=== PATIENT | female | born 1960 | race Caucasian/White ===

== ENCOUNTER 2016-05-28 21:18 | Emergency (ER) | payer SELFPAY ==
[~2016-05-28] VITALS: Ht 157.5 cm; Wt 55.0 kg
[~2016-05-28 21:18] MED LIST: ATOR40TA PO; BACT2OIN TOP; CALC500T19 PO; CLIN1CAP6 PO; KEPP1000 PO; LORA-474 PO; LORTA5 PO; ONDA4 PO; PHEN100 PO; THIA100T PO; TOPI25 PO
[2016-05-28 21:32] VITALS: BP 118/78; PULSE 72; RESP 16; TEMP 98.5; O2SAT 99
[2016-05-28] MEDS ORDERED: KEPP10002 PO ×2 (21:35→22:22)
--- NOTE | 2016-05-28 21:46 | PD ---
HPI Chief Complaint: Medical Clearance Time Seen by Provider: 21:38 Travel History International Travel<30 days: No Contact w/Intl Traveler<30days: No Traveled to known affect area: No History of Present Illness HPI This is a 55-year-old female to history of alcoholism, seizure disorder, bipolar disorder who presents under a Torres act initiated by the Police Department. Apparently the patient was being evicted from a hotel but she was intoxicated and had no vertigo and so the police were called and they brought her here. The patient reports that she drank a bottle of wine. When asked if she used any drugs she says "if I used a lot of drugs did i do bad?" History is limited secondary to intoxication. She does have a tiny abrasion on her right forehead. She is unwilling or unable to answer questions regarding pain, falling, etc. PFSH Past Medical History Arthritis: Yes (lower back) Bipolar Disorder: Yes Anxiety: Yes Depression: No Cancer: No High Cholesterol: Yes Cerebrovascular Accident: No Diminished Hearing: No Endocrine: No Gastrointestinal Disorders: No Genitourinary: No Headaches: Yes Hypertension: Yes Immune Disorder: No Implanted Vascular Access Dvce: No Insomnia: Yes Neurologic: Yes Psychiatric: No Reproductive: No Respiratory: No Immunizations Current: Yes Migraines: Yes Seizures: Yes (lifelong) Tetanus Vaccination: < 5 Years Influenza Vaccination: Yes ?: Unknown Menopausal: Yes : 5 Para: 4 Miscarriage: 1 Ectopic : Yes Past Surgical History Surgical History: No Previous Surgery Abdominal Surgery: Yes (ex lap) Cardiac Surgery: No Ear Surgery: No Endocrine Surgery: No Eye Surgery: No Genitourinary Surgery: No Gynecologic Surgery: No Oral Surgery: No Thoracic Surgery: No Other Surgery: Yes (ORIF R FOREARM/ R ANKLE, ABD'L EXPLOR. 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 She has repetitive and inappropriate responses to questions. She does not respond to commands appropriately. SKIN: Warm and dry. Tiny abrasion to the right forehead. HEAD: Atraumatic. Normocephalic. EYES: Pupils equal and round. No scleral icterus. No injection or drainage. ENT: No nasal bleeding or discharge. Mucous membranes pink and moist. NECK: Trachea midline. No JVD. CARDIOVASCULAR: Regular rate and rhythm. No murmur appreciated. RESPIRATORY: No accessory muscle use. Clear to auscultation. Breath sounds equal bilaterally. GASTROINTESTINAL: Abdomen soft, non-tender, nondistended. MUSCULOSKELETAL: No obvious deformities. Full spontaneous use of the upper and lower extremities. NEUROLOGICAL: Awake and alert. No obvious cranial nerve deficits. Motor grossly within normal limits. Slurred speech consistent with alcohol intoxication. No apparent facial droop, muscle weakness. Data Data Last Documented VS Vital Signs Date Time Temp Pulse Resp B/P Pulse Ox O2 Delivery O2 Flow Rate FiO2 05/28/16 21:35 71 16 05/28/16 21:32 98.5 118/[address] Brain W/O Iv Contrast(Rout) (05/28/16 ) Levetiracetam Inj (Keppra Inj) (05/28/16 22:15) MDM Medical Decision Making Medical Screen Exam Complete: Yes Emergency Medical Condition: Yes Medical Record Reviewed: Yes Interpretation(s) CT of the brain reveals no acute abnormalities Differential Diagnosis Alcohol intoxication, polysubstance abuse, homelessness, intracranial hemorrhage Narrative Course This is a 55-year-old female who was placed on her Torres act after being evicted from a hotel and found to intoxicated to take care of herself. I am unable to obtain any useful history from the patient. She has a tiny abrasion to the right forehead. Plan is to perform CT of the brain to rule out intracranial hemorrhage. The patient will remain here until she is clinically sober and then she will be discharged. The patient's CT imaging reveals no acute abnormalities. The patient is being given a loading dose of IV Keppra as she has not been taking her Keppra, unknown duration. She is being given a 30 day supply of her Keppra prescription. Diagnosis Primary Impression: Alcohol intoxication Qualified Code: F10.120 - Alcohol intoxication, uncomplicated Additional Impression: Medication refill Additional Instructions: Follow-up with primary care physician. Med/Other Pt SpecificInfo: Prescription(s) given Scripts Levetiracetam (Keppra)1,000 Mg Tab1,000 Mg PO BID #60 TAB Ref 0 Prov:Anju Walls MD 05/28/16 Disposition: 01 DISCHARGE HOME Condition: Stable Barry Fontana May 28, 2016 21:46
--- NOTE | 2016-05-28 22:10 | RADRPT ---
EXAM DATE/TIME: 05/28/2016 21:56 [facility] COMPARISON: CT BRAIN W/O CONTRAST, January 04, 2016, 2:42. INDICATIONS : Altered mental status; ETOH. Possible fall. RADIATION DOSE: 31.34 CTDIvol (mGy) MEDICAL HISTORY : Hypertension. SURGICAL HISTORY : None. ENCOUNTER: Initial ACUITY: 1 day PAIN SCALE: 0/10 LOCATION: cranial TECHNIQUE: Multiple contiguous axial images were obtained of the head. Using automated exposure control and adj ustment of the mA and/or kV according to patient size, radiation dose was kept as low as reasonably a chievable to obtain optimal diagnostic quality images. FINDINGS: CEREBRUM: The ventricles are normal for age. No evidence of midline shift, mass lesion, hemorrhage or acute in farction. No extra-axial fluid collections are seen. POSTERIOR FOSSA: The cerebellum and brainstem are intact. The 4th ventricle is midline. The cerebellopontine angle i s unremarkable. EXTRACRANIAL: The visualized portion of the orbits is intact. SKULL: The calvaria is intact. No evidence of skull fracture. CONCLUSION: Normal examination. No significant change has occurred. Sarabjit Mcgrath MD on May 28, 2016 at 22:08 Board Certified Radiologist. This report was verified electronically.
[2016-05-28] MEDS ORDERED: levETIRAcetam INJ 500 MG in SODIUM CHLORIDE 0.9% INJ 100 ML IV ONE (22:15)
[2016-05-29] VITALS (9 sets, daily range): BP systolic 96–138; BP diastolic 52–78; PULSE 83–103; RESP 16–18; TEMP 98.4; O2SAT 95–100
[2016-05-29] MEDS ORDERED: ACETAMINOPHEN 500 MG CPLT PO ONE (07:30)
--- NOTE | 2016-05-29 07:56 | PD ---
Physical Exam Narrative Patient was brought in under Mos[place]'s act last night was seen and medically cleared at that time. However patient woke this morning complaining of a headache, feeling nauseous along with feeling some dyspnea. Patient states she' s been having some dyspnea over the past couple of days. patient reports she does smoke but denies any known history of copd or asthma. patient's she's been coughing but denies any known fevers. patient states she does not remember anything that happened last night states that after dinner started drinking fireball liquor and that she does not normally drink. denies any chest pain, abdominal pain, back pain, neck pain, numbness or tingling anywhere. GENERAL: Well-developed, well nourished, in no acute distress, and non-ill appearing. SKIN: Warm and dry. HEAD: Atraumatic. Normocephalic. EYES: Pupils equal and round. EOMI. No scleral icterus. No injection or drainage. ENT: No nasal bleeding or discharge. Mucous membranes pink and moist. NECK: Trachea midline. Supple. No nuclear rigidity. CARDIOVASCULAR: Regular rate and rhythm. No murmur appreciated. RESPIRATORY: No accessory muscle use. No respiratory distress. Wheezing noted throughout. Breath sounds equal bilaterally. GASTROINTESTINAL: Abdomen soft, non-tender, nondistended. Hepatic and splenic margins not palpable. Normal bowel sounds 4. No pulsatile mass. MUSCULOSKELETAL: No obvious deformities. No clubbing. No cyanosis. No edema. Full range of motion. NEUROLOGICAL: Awake and alert. No obvious cranial nerve deficits. Motor grossly within normal limits. Normal speech. PSYCHIATRIC: Appropriate mood and affect; insight and judgment normal. Data Data Last Documented VS Vital Signs Date Time Temp Pulse Resp B/P Pulse Ox O2 Delivery O2 Flow Rate FiO2 05/29/16 08:38 83 18 121/78 100 Room Air 05/29/16 06:[address] Brain W/O Iv Contrast(Rout) (05/28/16 ) Levetiracetam Inj (Keppra Inj) (05/28/16 22:15) Acetaminophen (Tylenol) (05/29/16 07:30) Ondansetron Odt (Zofran Odt) (05/29/16 08:00) Albuterol-Ipratropium Neb (Duoneb Neb) (05/29/16 08:00) Methylprednisolone So Succ Inj (Solumedr (05/29/16 08:00) Chest, Single Ap (05/29/16 ) Methylprednisolone So Succ Inj (Solumedr (05/29/16 08:01) Ondansetron Inj (Zofran Inj) (05/29/16 08:05) Isolation 08,20 (05/29/16 08:37) [facility] Supervised Visit with JAYCOB: No Narrative Course Patient was seen and evaluated. Upon reassessment patient reports symptoms improved status post nebulizer and steroids. Chest x-ray reveals no sign of a pneumonia. Patients symptom complex is consistent with bronchitis. The patient is non-ill appearing and is in no respiratory distress and comfortable. The patient moves air well and oxygen saturations are normal. Chest x-ray revealed no evidence of obvious consolidation of infiltrate. There is no clinical evidence to suggest pneumonia at this time. Plan of care and management were discussed with the patient who agreed with plan. The patient was instructed to follow up with their physician and instructed to return if worsens, progressively worsening shortness of breath or difficulty breathing, persistent fever, chest pains or discomfort, inability to keep medication or fluids down with or without vomiting , or as needed. Diagnosis Primary Impression: Alcohol intoxication Qualified Code: F10.120 - Alcohol intoxication, uncomplicated Additional Impressions: Medication refill Bronchitis Patient Instructions: General Instructions, Alcohol Intoxication (ED) Departure Forms: Tests/Procedures Additional Instruction: Follow-up with primary care physician. Scripts Albuterol 18 GM Inh (Ventolin Hfa 18 GM Inh)90 Mcg/Act Aer2 Puff INH Q4H PRN ( SHORTNESS OF BREATH) #1 INHALER Ref 0 Prov:Anju Walls MD 05/29/16 Levetiracetam (Keppra)1,000 Mg Tab1,000 Mg PO BID #60 TAB Ref 0 Prov:Anju Walls MD 05/28/16 Disposition: 01 DISCHARGE HOME Condition: Stable Roberto Carlos Vitale May 29, 2016 07:56
[2016-05-29] MEDS ORDERED: methylPREDNISolone SOD SUCC 125 MG/2 ML VIAL IV PUSH ONE (08:00)
[2016-05-29] MEDS ORDERED: ONDANSETRON ODT 4 MG TAB PO ONE (08:00)
[2016-05-29] MEDS ORDERED: methylPREDNISolone SOD SUCC 125 MG/2 ML VIAL ONE (08:01)
[2016-05-29] MEDS ORDERED: ONDANSETRON HCL 4 MG/2 ML VIAL ONE (08:05)
[2016-05-29] MEDS: RESP: ALBUTEROL 2.5 MG/IPRATROPIUM 0.5 MG NEB (SCH) INH (08:15)
--- NOTE | 2016-05-29 08:30 | RADRPT ---
EXAM DATE/TIME: 05/29/2016 08:09 [facility] COMPARISON: CHEST SINGLE AP, January 03, 2016, 23:48. INDICATIONS : Wheezing. MEDICAL HISTORY : Hypertension. Hypercholesterolemia. Seizures. SURGICAL HISTORY : None. ENCOUNTER: Initial ACUITY: 1 day PAIN SCORE: 0/10 LOCATION: Bilateral chest FINDINGS: There is an apparent nipple shadow in the left base. Right lung is clear. Heart and pulmonary vascu larity are normal. Portion of bony skeleton visualized is unremarkable. CONCLUSION: Nipple shadow left base. Epifanio Johansen MD FACR on May 29, 2016 at 8:21 Board Certified Radiologist. This report was verified electronically.
[2016-05-29] MEDS ORDERED: VENTAER INH (08:42)
[2016-05-29] MEDS ORDERED: LORazepam 2 MG/ML VIAL ONE (10:26)
[2016-05-29] MEDS ORDERED: SODIUM CHLOR 0.9% 1000 ML INJ 1,000 ML IV ONE ×2 (10:30→10:35)
--- NOTE | 2016-05-29 10:35 | PD ---
Physical Exam Date Seen by Provider: May 29, 2016 Narrative The patient was up for discharge. She had been here for the night "sleeping it off." The patient was found to be quite dizzy the nurse tried to discharge her. I was subsequently asked to see her. The patient was awake and alert but complaining of dizziness. The patient was reportedly here following an episode of binge drinking. I asked the nurse to give the patient a liter of fluid. The nurse was in the process of doing this when the patient had a seizure. The seizure was witnessed by myself a couple of the nurses. It was a diffuse tonic- clonic seizure. It lasted for probably 2 minutes. It was treated with Ativan, 2 mg IV. Data Data Last Documented VS Vital Signs Date Time Temp Pulse Resp B/P Pulse Ox O2 Delivery O2 Flow Rate FiO2 05/29/16 11:39 96 18 120/67 98 Nasal Cannula 2 05/29/16 06:[address] Brain W/O Iv Contrast(Rout) (05/28/16 ) Levetiracetam Inj (Keppra Inj) (05/28/16 22:15) Acetaminophen (Tylenol) (05/29/16 07:30) Ondansetron Odt (Zofran Odt) (05/29/16 08:00) Albuterol-Ipratropium Neb (Duoneb Neb) (05/29/16 08:00) Methylprednisolone So Succ Inj (Solumedr (05/29/16 08:00) Chest, Single Ap (05/29/16 ) Methylprednisolone So Succ Inj (Solumedr (05/29/16 08:01) Ondansetron Inj (Zofran Inj) (05/29/16 08:05) Isolation 08,20 (05/29/16 08:37) Sodium Chlor 0.9% 1000 Ml Inj (Ns 1000 M (05/29/16 10:30) Lorazepam Inj (Ativan Inj) (05/29/16 10:26) Complete Blood Count With Diff (05/29/16 10:35) Drug Screen, Random Urine (05/29/16 10:35) Electrocardiogram (05/29/16 ) Blood Glucose (05/29/16 10:35) Ecg Monitoring (05/29/16 10:35) Iv Access Insert/Monitor (05/29/16 10:35) Oximetry (05/29/16 10:35) Comprehensive Metabolic Panel (05/29/16 10:35) Sodium Chlor 0.9% 1000 Ml Inj (Ns 1000 M (05/29/16 10:35) Sodium Chloride 0.9% Flush (Ns Flush) (05/29/16 10:45) Thiamine Inj (Thiamine Inj) (05/29/16 10:45) Urinalysis - C+S If Indicated (05/29/16 10:35) Labs Laboratory Tests Test 05/29/16 10:58 White Blood Count 8.0 TH/MM3 Red Blood Count 4.04 MIL/MM3 Hemoglobin 12.4 GM/DL Hematocrit 37.8 % Mean Corpuscular Volume 93.6 FL Mean Corpuscular Hemoglobin 30.8 PG Mean Corpuscular Hemoglobin 32.9 % Concent Red Cell Distribution Width 13.6 % Platelet Count 236 TH/MM3 Mean Platelet Volume 6.7 FL Neutrophils (%) (Auto) 87.8 % Lymphocytes (%) (Auto) 9.6 % Monocytes (%) (Auto) 1.8 % Eosinophils (%) (Auto) 0.6 % Basophils (%) (Auto) 0.2 % Neutrophils # (Auto) 7.0 TH/MM3 Lymphocytes # (Auto) 0.8 TH/MM3 Monocytes # (Auto) 0.1 TH/MM3 Eosinophils # (Auto) 0.0 TH/MM3 Basophils # (Auto) 0.0 TH/MM3 CBC Comment DIFF FINAL Differential Comment Urine Color YELLOW Urine Turbidity CLEAR Urine pH 5.5 Urine Specific [place] 1.019 Urine Protein NEG mg/dL Urine Glucose (UA) NEG mg/dL Urine Ketones NEG mg/dL Urine Occult Blood MOD Urine Nitrite NEG Urine Bilirubin NEG Urine Urobilinogen LESS THAN 2.0 MG/DL Urine Leukocyte Esterase TRACE Urine RBC 4 /hpf Urine WBC 2 /hpf Urine Squamous Epithelial 1 /hpf Cells Urine Transitional Epithelial <1 /hpf Cells Urine Mucus FEW /lpf Microscopic Urinalysis Comment CATH-CULT NOT IND Sodium Level 145 MEQ/L Potassium Level 3.9 MEQ/L Chloride Level 114 MEQ/L Carbon Dioxide Level 22.4 MEQ/L Anion Gap 9 MEQ/L Blood Urea Nitrogen 11 MG/DL Creatinine 0.76 MG/DL Estimat Glomerular Filtration 80 ML/MIN Rate Random Glucose 137 MG/DL Calcium Level 8.0 MG/DL Total Bilirubin 0.3 MG/DL Aspartate Amino Transf 12 U/L (AST/SGOT) Alanine Aminotransferase 15 U/L (ALT/SGPT) Alkaline Phosphatase 98 U/L Total Protein 6.2 GM/DL Albumin 3.1 GM/DL Urine Opiates Screen NEG Urine Barbiturates Screen NEG Urine Amphetamines Screen NEG Urine Benzodiazepines Screen NEG Urine Cocaine Screen POS Urine Cannabinoids Screen NEG MDM Medical Record Reviewed: Yes Supervised Visit with JAYCOB: No Interpretation(s) EKG shows a lot of artifact but no acute ST segment elevation or depression. EKG is unchanged from previous. Differential Diagnosis Differential diagnosis of seizure includes but is not limited to brain trauma, brain tumor, electrolyte disturbance, alcohol withdrawal, epilepsy, idiopathic Narrative Course Patient was up for discharge but was complaining with dizziness and subsequently had a seizure. It looks like she has had a CT of her head but has not had any blood work done. She has been treated with Ativan. I will add lab work. Her CBC is normal. Chemistries are unremarkable. UA looks negative. Toxicology is positive for cocaine. This is a patient with a known seizure disorder who has been drinking and using cocaine. She had a seizure here in the emergency department. She is now sound asleep following Ativan. However, she is also now medically clear. Diagnosis Primary Impression: Alcohol intoxication Qualified Code: F10.120 - Alcohol intoxication, uncomplicated Additional Impressions: Medication refill Bronchitis Seizure disorder Patient Instructions: General Instructions, Alcohol Intoxication (ED) Departure Forms: Tests/Procedures Additional Instruction: Follow-up with primary care physician. Scripts Albuterol 18 GM Inh (Ventolin Hfa 18 GM Inh)90 Mcg/Act Aer2 Puff INH Q4H PRN ( SHORTNESS OF BREATH) #1 INHALER Ref 0 Prov:Anju Walls MD 05/29/16 Levetiracetam (Keppra)1,000 Mg Tab1,000 Mg PO BID #60 TAB Ref 0 Prov:Anju Walls MD 05/28/16 Disposition: 01 DISCHARGE HOME Condition: Stable Bianca Diez MD May 29, 2016 10:35
[2016-05-29] MEDS ORDERED: SODIUM CHLORIDE 0.9% FLUSH 5 ML FLUSH IVF PRN (10:45)
[2016-05-29] MEDS ORDERED: THIAMINE INJ 100 MG in SODIUM CHLORIDE 0.9% INJ 100 ML IV ONE (10:45)
[2016-05-29 11:17] LABS: BASOPHIL % 0.2 % (0.0-2.0); EOSINOPHIL % 0.6 % (0.0-4.0); HEMATOCRIT 37.8 % (35.0-46.0); HEMO FLAGS DIFF FINAL; LYMPH % 9.6 % (9.0-44.0); LYMPHOCYTE # 0.8 TH/MM3 (1.0-4.8); MEAN CELL VOLUME 93.6 FL (80.0-100.0); MEAN CORPUSCULAR HEMOGLOBIN 30.8 PG (27.0-34.0); MEAN CORPUSCULAR HGB CONC 32.9 % (32.0-36.0); MONO % 1.8 % (0.0-8.0); NEUT % 87.8 % (16.0-70.0); PLATELET COUNT 236 TH/MM3 (150-450); RED BLOOD COUNT 4.04 MIL/MM3 (4.00-5.30); RED CELL DISTRIBUTION WIDTH 13.6 % (11.6-17.2)
[2016-05-29 11:37] LABS: BLOOD, URINE MOD (NEG); COMMENT (UR) CATH-CULT NOT IND; CULTURE IF INDICATED CATH CULTURE NOT IND; GLUCOSE,URINE NEG (NEG); KETONE, URINE NEG (NEG); MUCUS URINE FEW /lpf (OCC); NITRITE,URINE NEG (NEG); PH, URINE 5.5 (5.0-8.5); SQUAMOUS EPITHELIAL CELL URINE 1 /hpf (0-5); TRANSITIONAL EPI CELLS, URINE <1 /hpf; URINE COLOR YELLOW (YELLW/STRAW)
[2016-05-29 11:39] LABS: ANION GAP 9 MEQ/L (5-15); AST (GOT) 12 U/L (15-37); BICARBONATE 22.4 MEQ/L (21.0-32.0); BLOOD UREA NITROGEN 11 MG/DL (7-18); CHLORIDE 114 MEQ/L (98-107); GLOMERULAR FILTRATION RATE 80 ML/MIN (>89); POTASSIUM 3.9 MEQ/L (3.5-5.1); SODIUM (NA) 145 MEQ/L (136-145)
[2016-05-29 11:42] LABS: ALKALINE PHOSPHATASE 98 U/L (45-117); ALT (GPT) 15 U/L (10-53); TOTAL BILIRUBIN ADULT 0.3 MG/DL (0.2-1.0)
[2016-05-29 11:47] LABS: AMPHETAMINE, URINE NEG (NEG); BARBITURATES, URINE NEG (NEG); COCAINE, URINE POS (NEG)
--- NOTE | 2016-05-29 17:39 | EKG ---
Date Performed: 05/29/2016 Time Performed: 10:53:28 PTAGE: 55 years EKG: Sinus rhythm NONSPECIFIC ST ABNORMALITIES ABNORMAL ECG PREVIOUS TRACING : 01/03/2016 23.38 No significant change from previous tracing noted. DOCTOR: Harmeet Mendez Interpretating Date/Time 05/29/2016 17:38:48
[2016-09-12] MEDS ORDERED: CLINPOW PO (15:58)
[2016-09-12] MEDS ORDERED: DILA100C PO (16:09)
[2016-09-12] MEDS ORDERED: KEPP10002 PO (16:09)
[2016-09-12] MEDS ORDERED: VENTAER INH (16:12)
[2016-11-10] MEDS ORDERED: HYDR50CA PO (16:00)
[2016-11-10] MEDS ORDERED: QUET-88 PO (16:00)
[2016-11-10] MEDS ORDERED: OXCA300T PO (16:00)
[2016-11-10] MEDS ORDERED: AMIT50TA3 PO (16:00)
[2016-11-10] MEDS ORDERED: GABA300C5 PO (16:37)
== END 2016-05-29 20:57 | disposition home or self-care (01) ==
LOC: NEPA 21:18
DX: F10.120 Alcohol abuse with intoxication, uncomplicated (principal); J40 Bronchitis, not specified as acute or chronic; G40.909 Epilepsy, unspecified, not intractable, without status epilepticus; R94.31 Abnormal electrocardiogram [ECG] [EKG]; I10 Essential (primary) hypertension; E78.00 Pure hypercholesterolemia, unspecified; G47.00 Insomnia, unspecified; F31.9 Bipolar disorder, unspecified; Z76.0 Encounter for issue of repeat prescription; Z72.0 Tobacco use; Z86.69 Personal history of other diseases of the nervous system and sense organs
CPT/HCPCS: 70450; 71010; 80053; 80307; 81001; 85025; 93005; 94640; 94664; 96361; 96365; 96367; 96374; 96375; 99285; J1953; J2060; J2405; J2930; J3411; J7030

== ENCOUNTER 2016-08-22 14:46 | Inpatient (IN) | payer OTHER ==
[~2016-08-22] VITALS: Ht 157.5 cm; Wt 54.2 kg
[~2016-08-22 14:46] MED LIST changes: -ATOR40TA PO; -BACT2OIN TOP; -CALC500T19 PO; -CLIN1CAP6 PO; -KEPP1000 PO; +KEPP10002 PO; -LORA-474 PO; -LORTA5 PO; -ONDA4 PO; -PHEN100 PO; -THIA100T PO; -TOPI25 PO; +VENTAER INH
[2016-08-22 15:09] VITALS: BP 161/95; PULSE 89; RESP 17; TEMP 97.8; O2SAT 98
[2016-08-22] MEDS ORDERED: SODIUM CHLOR 0.9% 1000 ML INJ 1,000 ML IV SCH (15:11)
[2016-08-22] MEDS ORDERED: SODIUM CHLORIDE 0.9% FLUSH 10 ML FLUSH IVF PRN (15:15)
[2016-08-22 15:16] VITALS: RESP 18; O2SAT 96
--- NOTE | 2016-08-22 15:27 | PD ---
HPI Chief Complaint: Altered Mental Status Time Seen by Provider: 15:22 Travel History International Travel<30 days: No Contact w/Intl Traveler<30days: No Traveled to known affect area: No History of Present Illness HPI Patient is a 56-year-old female brought in by EMS for evaluation of left lower extremity pain as well as altered mental status. Patient states she's been drinking beer today, she reports at least 5 beers this afternoon. She states that a friend of hers told her to inhale smoke from a red straw to help her pain go away, patient states her friend is a drug dealer. Patient denies any head injury or loss of consciousness, she does not know how she hurt her left leg but states she ran to the [employer] to call 911. Patient states it "hurts ". PFSH Past Medical History Arthritis: Yes (lower back) Bipolar Disorder: Yes Anxiety: Yes Depression: No Cancer: No High Cholesterol: Yes Cerebrovascular Accident: No Diminished Hearing: No Endocrine: No Gastrointestinal Disorders: No Genitourinary: No Headaches: Yes Hypertension: Yes Immune Disorder: No Implanted Vascular Access Dvce: No Insomnia: Yes Neurologic: Yes Psychiatric: No Reproductive: No Respiratory: No Immunizations Current: Yes Migraines: Yes Seizures: Yes (lifelong) ?: Not Menopausal: Yes : 5 Para: 4 Miscarriage: 1 Ectopic : Yes Past Surgical History Abdominal Surgery: Yes (ex lap) Cardiac Surgery: No Ear Surgery: No Endocrine Surgery: No Eye Surgery: No Genitourinary Surgery: No Gynecologic Surgery: No Oral Surgery: No Thoracic Surgery: No Other Surgery: Yes (ORIF R FOREARM/ R ANKLE, ABD'L EXPLOR. 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 SKIN: Focused skin assessment warm/dry. HEAD: Atraumatic. Normocephalic. EYES: Pupils equal and round. No scleral icterus. No injection or drainage. ENT: No nasal bleeding or discharge. Mucous membranes pink and moist. NECK: Trachea midline. No JVD. CARDIOVASCULAR: Regular rate and rhythm. No murmur appreciated. RESPIRATORY: No accessory muscle use. Clear to auscultation. Breath sounds equal bilaterally. GASTROINTESTINAL: Abdomen soft, non-tender, nondistended. Hepatic and splenic margins not palpable. MUSCULOSKELETAL: No obvious deformities. No clubbing. No cyanosis. Edema noted to the lateral aspect of the left ankle. Positive pedal pulses, brisk capillary refill. NEUROLOGICAL: Drowsy but arousable. No obvious cranial nerve deficits. Motor grossly within normal limits. Slow speech. PSYCHIATRIC: Appropriate mood and affect; insight and judgment impaired. Data Data Last Documented VS Vital Signs Date Time Temp Pulse Resp B/P Pulse Ox O2 Delivery O2 Flow Rate FiO2 08/22/16 16:45 97.8 87 17 129/75 97 Room Air Orders Complete Blood Count With Diff (08/22/16 15:11) Comprehensive Metabolic Panel (08/22/16 15:11) Creatine Kinase (Cpk) (08/22/16 15:11) Lactic Acid Sepsis Protocol (08/22/16 15:11) Urinalysis - C+S If Indicated (08/22/16 15:11) Blood Glucose (08/22/16 15:11) Ecg Monitoring (08/22/16 15:11) Iv Access Insert/Monitor (08/22/16 15:11) Oximetry (08/22/16 15:11) Sodium Chloride 0.9% Flush (Ns Flush) (08/22/16 15:15) Sodium Chlor 0.9% 1000 Ml Inj (Ns 1000 M (08/22/16 15:11) Drug Screen, Random Urine (08/22/16 15:11) Alcohol (Ethanol) (08/22/16 15:11) Salicylates (Aspirin) (08/22/16 15:11) Tylenol (Acetaminophen) (08/22/16 15:11) Ankle, Complete ([id number]) (08/22/16 ) Knee, Complete (4vws) (08/22/16 ) CKMB (08/22/16 15:25) CKMB% (08/22/16 15:25) Splint Or Brace Apply/Monitor (08/22/16 17:06) Urine Culture (08/22/16 16:40) Nitrofurantoin Monohyd Macrocr (Macrobid (08/22/16 17:45) Crutches (08/22/16 17:53) Labs Laboratory Tests Test 08/22/16 08/22/16 08/22/16 15:25 16:00 16:40 White Blood Count 7.1 TH/MM3 Red Blood Count 4.36 MIL/MM3 Hemoglobin 13.0 GM/DL Hematocrit 39.6 % Mean Corpuscular Volume 90.9 FL Mean Corpuscular Hemoglobin 29.9 PG Mean Corpuscular Hemoglobin 32.9 % Concent Red Cell Distribution Width 13.2 % Platelet Count 252 TH/MM3 Mean Platelet Volume 6.7 FL Neutrophils (%) (Auto) 52.2 % Lymphocytes (%) (Auto) 40.3 % Monocytes (%) (Auto) 4.8 % Eosinophils (%) (Auto) 2.1 % Basophils (%) (Auto) 0.6 % Neutrophils # (Auto) 3.7 TH/MM3 Lymphocytes # (Auto) 2.9 TH/MM3 Monocytes # (Auto) 0.3 TH/MM3 Eosinophils # (Auto) 0.2 TH/MM3 Basophils # (Auto) 0.0 TH/MM3 CBC Comment DIFF FINAL Differential Comment Sodium Level 143 MEQ/L Potassium Level 3.8 MEQ/L Chloride Level 108 MEQ/L Carbon Dioxide Level 23.0 MEQ/L Anion Gap 12 MEQ/L Blood Urea Nitrogen 10 MG/DL Creatinine 0.67 MG/DL Estimat Glomerular Filtration 92 ML/MIN Rate Random Glucose 83 MG/DL Calcium Level 8.5 MG/DL Total Bilirubin 0.4 MG/DL Aspartate Amino Transf 36 U/L (AST/SGOT) Alanine Aminotransferase 30 U/L (ALT/SGPT) Alkaline Phosphatase 121 U/L Total Creatine Kinase 453 U/L Creatine Kinase MB 3.8 NG/ML Creatine Kinase MB % 0.8 % Total Protein 7.7 GM/DL Albumin 4.0 GM/DL Salicylates Level 2.5 MG/DL Acetaminophen Level LESS THAN 2.0 MCG/ML Ethyl Alcohol Level 238 MG/DL Lactic Acid Level 1.3 mmol/L Urine Color LIGHT-YELLOW Urine Turbidity HAZY Urine pH 5.0 Urine Specific [place] 1.006 Urine Protein NEG mg/dL Urine Glucose (UA) NEG mg/dL Urine Ketones NEG mg/dL Urine Occult Blood MOD Urine Nitrite POS Urine Bilirubin NEG Urine Urobilinogen LESS THAN 2.0 MG/DL Urine Leukocyte Esterase LARGE Urine RBC 4 /hpf Urine WBC 5 /hpf Urine Squamous Epithelial 3 /hpf Cells Urine Bacteria MANY /hpf Microscopic Urinalysis Comment CATH-CULTURE IND Urine Opiates Screen NEG Urine Barbiturates Screen NEG Urine Amphetamines Screen NEG Urine Benzodiazepines Screen NEG Urine Cocaine Screen POS Urine Cannabinoids Screen NEG MDM Medical Decision Making Medical Screen Exam Complete: Yes Emergency Medical Condition: Yes Interpretation(s) Vital Signs Date Time Temp Pulse Resp B/P Pulse Ox O2 Delivery O2 Flow Rate FiO2 08/22/16 15:16 18 96 Room Air 08/22/16 15:09 97.8 89 17 161/95 98 Differential Diagnosis Fracture versus sprain versus strain versus dislocation versus intoxication versus substance abuse versus other Narrative Course Patient is a 56-year-old female brought in by EMS for evaluation of left leg pain. Patient could not recall how she was injured, she appears intoxicated on arrival. Patient is drowsy but arousable. Imaging, labs ordered and pending. X-ray of the left ankle and knee was negative for acute fracture. Patient placed in ankle stirrup for support, there is edema noted to the lateral aspect , patient likely sprained her ankle. She was also given crutches for support. CBC is unremarkable Chemistry shows no acute issues. Lactic acid is 1.3 Urinalysis is nitrite positive for urinary tract infection with moderate occult blood, large leukocyte esterase, 4 red blood cells, and many bacteria. Patient was given nitrofurantoin times one dose as well as 1 L IV fluids. Patient's blood alcohol level was 238 Acetaminophen is less than 2.0 Salicylate level 2.5 Urine drug screen is ordered and pending. Patient will be discharged when she is able to ambulate safely. She is encouraged to avoid illicit drug use, limit amount of alcohol that she is on a daily basis. She is encouraged follow-up with her primary doctor return to emergency department for any new or worsening symptoms. Patient additionally should follow up with a orthopedic surgeon for further evaluation management of her ankle pain if needed. Patient will be kept in the emergency department until she is able to demonstrate safe ambulation. However patient is medically cleared this time. Diagnosis Primary Impression: Urinary tract infection Qualified Code: N39.0 - Urinary tract infection with hematuria, site unspecified Additional Impressions: Alcohol intoxication Qualified Code: F10.120 - Alcohol intoxication, uncomplicated Ankle sprain Qualified Code: S93.402A - Sprain of left ankle, unspecified ligament, initial encounter Referrals: Primary Care Physician [facility] Patient Instructions: Abuse of Alcohol (ED), Ankle Sprain (ED), General Instructions, Urinary Tract Infection in Women (ED) Additional Instructions: Rest, ice, elevate extremity Complete full course of antibiotics as prescribed Follow-up with her primary doctor Avoid excessive alcohol intake Avoid illicit drug use Return to emergency department for any new or worsening symptoms Med/Other Pt SpecificInfo: Prescription(s) given Scripts Nitrofurantoin Monohydrate Macrocrystals 100 Mg [id number] Mg PO BID 7 Days Ref 0 Prov:Radha Moreland 08/22/16 Disposition: 01 DISCHARGE HOME Condition: Stable Radha Moreland Aug 22, 2016 15:27
--- NOTE | 2016-08-22 16:02 | RADRPT ---
EXAM DATE/TIME: 08/22/2016 15:27 [facility] COMPARISON: No previous studies available for comparison. INDICATIONS : Left knee pain after fall. MEDICAL HISTORY : None. SURGICAL HISTORY : None. ENCOUNTER: Initial ACUITY: 1 day PAIN SCORE: 10/10 LOCATION: Left knee. FINDINGS: Four view examination of the left knee demonstrates no evidence of fracture or dislocation. Bony min eralization is normal. The articular surfaces are intact. The suprapatellar soft tissues have a nor mal configuration. CONCLUSION: Unremarkable examination of the left knee. Thor Ferrer MD on August 22, 2016 at 15:58 Board Certified Radiologist. This report was verified electronically.
--- NOTE | 2016-08-22 16:03 | RADRPT ---
EXAM DATE/TIME: 08/22/2016 15:32 [facility] COMPARISON: No previous studies available for comparison. INDICATIONS : Left ankle pain after fall. MEDICAL HISTORY : None. SURGICAL HISTORY : None. ENCOUNTER: Initial ACUITY: 1 day PAIN SCORE: 10/10 LOCATION: Left ankle. FINDINGS: Three view exam was performed of the left ankle. The bony structures are in normal alignment. No ev idence of fracture, dislocation, or soft tissue swelling. The ankle mortise is intact. No radiopaqu e foreign bodies are seen. Bony mineralization is normal. CONCLUSION: Unremarkable examination of the left ankle. Thor Ferrer MD on August 22, 2016 at 16:00 Board Certified Radiologist. This report was verified electronically.
[2016-08-22 16:06] LABS: AUTOMATED NEUTROPHIL # 3.7 TH/MM3 (1.8-7.7); BASOPHIL % 0.6 % (0.0-2.0); EOSINOPHIL # 0.2 TH/MM3 (0-0.4); EOSINOPHIL % 2.1 % (0.0-4.0); HEMATOCRIT 39.6 % (35.0-46.0); HEMO FLAGS DIFF FINAL; LYMPH % 40.3 % (9.0-44.0); LYMPHOCYTE # 2.9 TH/MM3 (1.0-4.8); MEAN CELL VOLUME 90.9 FL (80.0-100.0); MEAN CORPUSCULAR HEMOGLOBIN 29.9 PG (27.0-34.0); MEAN CORPUSCULAR HGB CONC 32.9 % (32.0-36.0); MONO % 4.8 % (0.0-8.0); NEUT % 52.2 % (16.0-70.0); PLATELET COUNT 252 TH/MM3 (150-450); RED BLOOD COUNT 4.36 MIL/MM3 (4.00-5.30); RED CELL DISTRIBUTION WIDTH 13.2 % (11.6-17.2); WHITE BLOOD COUNT 7.1 TH/MM3 (4.0-11.0)
[2016-08-22 16:34] LABS: ANION GAP 12 MEQ/L (5-15)
[2016-08-22 16:38] LABS: ACETAMINOPHEN LESS THAN 2.0 MCG/ML (10.0-30.0); ALKALINE PHOSPHATASE 121 U/L (45-117); ALT (GPT) 30 U/L (10-53); AST (GOT) 36 U/L (15-37); BLOOD UREA NITROGEN 10 MG/DL (7-18); CHLORIDE 108 MEQ/L (98-107); CREATINE KINASE 453 U/L (26-192); GLOMERULAR FILTRATION RATE 92 ML/MIN (>89); POTASSIUM 3.8 MEQ/L (3.5-5.1); SODIUM (NA) 143 MEQ/L (136-145); TOTAL BILIRUBIN ADULT 0.4 MG/DL (0.2-1.0)
[2016-08-22 16:45] VITALS: BP 129/75; PULSE 87; RESP 17; TEMP 97.8; O2SAT 97
[2016-08-22 16:58] LABS: CKMB 3.8 NG/ML (0.5-3.6)
[2016-08-22 17:19] LABS: BACTERIA, URINE MANY /hpf; BLOOD, URINE MOD (NEG); GLUCOSE,URINE NEG (NEG); KETONE, URINE NEG (NEG); SQUAMOUS EPITHELIAL CELL URINE 3 /hpf (0-5); URINE COLOR LIGHT-YELLOW (YELLW/STRAW)
[2016-08-22 17:20] LABS: COMMENT (UR) CATH-CULTURE IND; CULTURE IF INDICATED CATH CULTURE IND; NITRITE,URINE POS (NEG)
[2016-08-22 17:39] LABS: AMPHETAMINE, URINE NEG (NEG); BARBITURATES, URINE NEG (NEG); COCAINE, URINE POS (NEG)
[2016-08-22] MEDS ORDERED: NITR100C4 PO (17:43)
[2016-08-22] MEDS ORDERED: NITROFURANTOIN MONOHYD MACROCR 100 MG CAP PO ONE (17:45)
[2016-08-23] VITALS (12 sets, daily range): BP systolic 113–182; BP diastolic 73–96; PULSE 74–97; RESP 16–22; TEMP 95.8–98.1; O2SAT 94–98
[2016-08-23] MEDS: LORazepam 2 MG/ML VIAL IV PUSH PRN ×2 (03:30→16:52)
--- NOTE | 2016-08-23 03:50 | PD ---
Physical Exam Narrative General: The patient is a well-developed well-nourished female, actively seizing on my arrival at her side. Head and Neck exam: Head is normocephalic atraumatic. Eyes: Pupils are equal round and reactive to light. Nose: Midline septum with pink mucous membranes Mouth: Dentition unremarkable. Moist mucus membranes Neck:No nuchal rigidity. Cardiovascular: Sinus tachycardia in the 1 teens without murmurs, gallops, or rubs. Lungs: Clear to auscultation bilaterally. No wheezes, rhonchi, or rales. Abdomen: Soft, without tenderness to palpation in all 4 quadrants of the abdomen. No guarding, rebound, or rigidity. Normal bowel sounds are audible. Extremities: No clubbing, cyanosis, or edema. 2+ pulses in all 4 extremities. The patient has a Velcro ankle splint in place on the left leg. Neurologic Exam: The patient is noted to have a generalized tonic-clonic seizure with postictal state after administration of Ativan. Skin Exam: No rash noted. Intact skin that is warm and dry. Data Data Last Documented VS Vital Signs Date Time Temp Pulse Resp B/P Pulse Ox O2 Delivery O2 Flow Rate FiO2 08/23/16 04:00 80 16 156/82 96 Nasal Cannula 2 08/22/16 16:45 97.8 Orders Complete Blood Count With Diff (08/22/16 15:11) Comprehensive Metabolic Panel (08/22/16 15:11) Creatine Kinase (Cpk) (08/22/16 15:11) Lactic Acid Sepsis Protocol (08/22/16 15:11) Urinalysis - C+S If Indicated (08/22/16 15:11) Blood Glucose (08/22/16 15:11) Ecg Monitoring (08/22/16 15:11) Iv Access Insert/Monitor (08/22/16 15:11) Oximetry (08/22/16 15:11) Sodium Chloride 0.9% Flush (Ns Flush) (08/22/16 15:15) Sodium Chlor 0.9% 1000 Ml Inj (Ns 1000 M (08/22/16 15:11) Drug Screen, Random Urine (08/22/16 15:11) Alcohol (Ethanol) (08/22/16 15:11) Salicylates (Aspirin) (08/22/16 15:11) Tylenol (Acetaminophen) (08/22/16 15:11) Ankle, Complete ([id number]) (08/22/16 ) Knee, Complete (4vws) (08/22/16 ) CKMB (08/22/16 15:25) CKMB% (08/22/16 15:25) Splint Or Brace Apply/Monitor (08/22/16 17:06) Urine Culture (08/22/16 16:40) Nitrofurantoin Monohyd Macrocr (Macrobid (08/22/16 17:45) Crutches (08/22/16 17:53) Brace Ankle Stirrup (08/22/16 ) Sodium Chlor 0.9% 1000 Ml Inj (Ns 1000 M (08/23/16 04:30) Lorazepam Inj (Ativan Inj) (08/23/16 04:30) Levetiracetam 1000 Mg Inj (Keppra 1000 M (08/23/16 04:30) Admit Order (Ed Use Only) (08/23/16 04:22) Place In Observation (08/23/16 ) Vital Signs (Adult) Q4H (08/23/16 04:22) Activity Oob With Assistance (08/23/16 04:22) Heavy Equipment Operator/Paver / Telemetry .CONTINUOUS (08/23/16 04:22) Diet Heart Healthy (08/23/16 Breakfast) Sodium Chloride 0.9% Flush (Ns Flush) (08/23/16 04:30) Sodium Chloride 0.9% Flush (Ns Flush) (08/23/16 09:00) Pt Request For Service (08/23/16 04:22) Case Management Consult (08/23/16 04:22) Naloxone Inj (Narcan Inj) (08/23/16 04:30) Bedside Glucose SUNNY.AC&HS (08/23/16 04:23) Intake + Output SUNNY.QSHIFT (08/23/16 04:23) Alcohol Withdrawal Asmt-Ciwa Q4HX18 (08/23/16 04:23) ^ Seizure Precautions (08/23/16 04:23) Sodium Chloride 0.9% Flush (Ns Flush) (08/23/16 04:30) Sodium Chloride 0.9% Flush (Ns Flush) (08/23/16 09:00) Consult Cm-Etoh Abuse Dc Plan (08/23/16 ) Flumazenil Inj (Romazicon Inj) (08/23/16 04:30) Lorazepam (Ativan) (08/23/16 04:30) Lorazepam Inj (Ativan Inj) (08/23/16 04:30) Lorazepam (Ativan) (08/23/16 04:30) Lorazepam Inj (Ativan Inj) (08/23/16 04:30) Lorazepam Inj (Ativan Inj) (08/23/16 04:30) Lorazepam Inj (Ativan Inj) (08/23/16 04:30) Labs Laboratory Tests Test 08/22/16 08/22/16 08/22/16 15:25 16:00 16:40 Sodium Level 143 MEQ/L Potassium Level 3.8 MEQ/L Chloride Level 108 MEQ/L Carbon Dioxide Level 23.0 MEQ/L Anion Gap 12 MEQ/L Blood Urea Nitrogen 10 MG/DL Creatinine 0.67 MG/DL Estimat Glomerular Filtration 92 ML/MIN Rate Random Glucose 83 MG/DL Calcium Level 8.5 MG/DL Total Bilirubin 0.4 MG/DL Aspartate Amino Transf 36 U/L (AST/SGOT) Alanine Aminotransferase 30 U/L (ALT/SGPT) Alkaline Phosphatase 121 U/L Total Creatine Kinase 453 U/L Creatine Kinase MB 3.8 NG/ML Creatine Kinase MB % 0.8 % Total Protein 7.7 GM/DL Albumin 4.0 GM/DL Salicylates Level 2.5 MG/DL Acetaminophen Level LESS THAN 2.0 MCG/ML Ethyl Alcohol Level 238 MG/DL White Blood Count 7.1 TH/MM3 Red Blood Count 4.36 MIL/MM3 Hemoglobin 13.0 GM/DL Hematocrit 39.6 % Mean Corpuscular Volume 90.9 FL Mean Corpuscular Hemoglobin 29.9 PG Mean Corpuscular Hemoglobin 32.9 % Concent Red Cell Distribution Width 13.2 % Platelet Count 252 TH/MM3 Mean Platelet Volume 6.7 FL Neutrophils (%) (Auto) 52.2 % Lymphocytes (%) (Auto) 40.3 % Monocytes (%) (Auto) 4.8 % Eosinophils (%) (Auto) 2.1 % Basophils (%) (Auto) 0.6 % Neutrophils # (Auto) 3.7 TH/MM3 Lymphocytes # (Auto) 2.9 TH/MM3 Monocytes # (Auto) 0.3 TH/MM3 Eosinophils # (Auto) 0.2 TH/MM3 Basophils # (Auto) 0.0 TH/MM3 CBC Comment DIFF FINAL Differential Comment Lactic Acid Level 1.3 mmol/L Urine Opiates Screen NEG Urine Barbiturates Screen NEG Urine Amphetamines Screen NEG Urine Benzodiazepines Screen NEG Urine Cocaine Screen POS Urine Cannabinoids Screen NEG Urine Color LIGHT-YELLOW Urine Turbidity HAZY Urine pH 5.0 Urine Specific [place] 1.006 Urine Protein NEG mg/dL Urine Glucose (UA) NEG mg/dL Urine Ketones NEG mg/dL Urine Occult Blood MOD Urine Nitrite POS Urine Bilirubin NEG Urine Urobilinogen LESS THAN 2.0 MG/DL Urine Leukocyte Esterase LARGE Urine RBC 4 /hpf Urine WBC 5 /hpf Urine Squamous Epithelial 3 /hpf Cells Urine Bacteria MANY /hpf Microscopic Urinalysis Comment CATH-CULTURE IND MDM Medical Record Reviewed: Yes Supervised Visit with JAYCOB: No Differential Diagnosis Alcohol-related withdrawal seizure, versus seizure activity related to medication noncompliance and a history of epilepsy, versus cocaine induced seizure activity Narrative Course During the course of the patients emergency department visit, the patients history and examination were reviewed after I was called into the room to assess the patient when she experienced generalized tonic-clonic seizure activity. The patient had been in the emergency department between 10 and 12 hours for observation due to acute alcohol intoxication. The patient also had a urine drug screen that was positive for cocaine. According to the record, the patient additionally has a past medical history significant for seizure disorder on Keppra. The patient was provided normal saline 1 L IV fluid bolus, Ativan 2 mg IV push. The patient will be admitted to the hospital for evaluation and treatment, history of altered mentation thought to be related to polysubstance abuse, now with seizure activity noted. The patient was admitted to the hospital in guarded condition and [facility]. Physician Communication Physician Communication The patient's case was discussed with Dr. Saenz who did agree to admit the patient for further evaluation and treatment at this time. Diagnosis Primary Impression: Urinary tract infection Qualified Code: N39.0 - Urinary tract infection with hematuria, site unspecified Additional Impressions: Alcohol intoxication Qualified Code: F10.120 - Alcohol intoxication, uncomplicated Ankle sprain Qualified Code: S93.402A - Sprain of left ankle, unspecified ligament, initial encounter Altered mental state Qualified Code: R41.0 - Disorientation Generalized tonic-clonic seizure Admitting Information Admitting Physician Requests: Observation Referrals: Primary Care Physician [facility] Patient Instructions: General Instructions, Ankle Sprain (ED), Urinary Tract Infection in Women (ED), Abuse of Alcohol (ED) Departure Forms: Tests/Procedures Additional Instruction: Rest, ice, elevate extremity Complete full course of antibiotics as prescribed Follow-up with her primary doctor Avoid excessive alcohol intake Avoid illicit drug use Return to emergency department for any new or worsening symptoms Scripts Nitrofurantoin Monohydrate Macrocrystals 100 Mg [id number] Mg PO BID 7 Days Ref 0 Prov:Radha Moreland 08/22/16 Disposition: 01 DISCHARGE HOME Condition: Stable Angelique Brock MD Aug 23, 2016 03:50
[2016-08-23] MEDS ORDERED: SODIUM CHLORIDE 0.9% FLUSH 10 ML FLUSH IV FLUSH PRN ×2 (04:30)
[2016-08-23] MEDS ORDERED: LORazepam 1 MG TAB PO PRN (04:30)
[2016-08-23] MEDS ORDERED: LORazepam 2 MG TAB PO PRN (04:30)
[2016-08-23] MEDS ORDERED: FLUMAZENIL 0.5 MG/5 ML VIAL IV PUSH PRN (04:30)
[2016-08-23] MEDS ORDERED: levETIRAcetam 1000 MG INJ 100 ML IV ONE (04:30)
[2016-08-23] MEDS ORDERED: LORazepam 2 MG/ML VIAL IV PUSH ONE (04:30)
[2016-08-23] MEDS ORDERED: NALOXONE HCL 0.4 MG/ML AMP IV PRN (04:30)
[2016-08-23] MEDS ORDERED: LORazepam 2 MG/ML VIAL IV PUSH PRN ×3 (04:30→17:00)
[2016-08-23] MEDS ORDERED: SODIUM CHLOR 0.9% 1000 ML INJ 1,000 ML IV ONE (04:30)
[2016-08-23] MEDS: CIPROFLOXACIN 400 MG PREMIX 200 ML IV SCH ×2 (05:21→17:55)
[2016-08-23] MEDS: SODIUM CHLORIDE 0.9% FLUSH 10 ML FLUSH IV FLUSH SCH ×2 (09:00→20:23)
[2016-08-23] MEDS ORDERED: SODIUM CHLORIDE 0.9% FLUSH 10 ML FLUSH IV FLUSH SCH (09:00)
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
[2016-08-23] MEDS: levETIRAcetam 500 MG TAB PO SCH ×2 (12:41→20:34)
[2016-08-23] MEDS: KETOROLAC TROMETHAMINE 30 MG/ML (IVP) VIAL IV PUSH PRN (13:14)
[2016-08-23] MEDS ORDERED: levETIRAcetam 500 MG TAB PO SCH (17:00)
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
[2016-08-23] MEDS: CLINDAMYCIN 150 MG CAP PO SCH ×2 (17:55→23:06)
[2016-08-23] MEDS ORDERED: FOSPHENYTOIN INJ 1,000 MGPE in SODIUM CHLORIDE 0.9% INJ 50 ML IV ONE (18:15)
--- NOTE | 2016-08-23 19:38 | RADRPT ---
EXAM DATE/TIME: 08/23/2016 18:33 [facility] COMPARISON: No previous studies available for comparison. INDICATIONS : Abscess. MEDICAL HISTORY : Hypercholesterolemia. Hypertension. Arthritis. Seizures. Basal ganglia. Migraines. Asthma. Ectopic pr egnancy. PTSD. Bipolar disorder. Anxiety. ETOH and substance abuse. Insomnia. MRSA. SURGICAL HISTORY : Exploratory laprascopy. Right hand/forearm ORIF. Right ankle ORIF. Jaw repair. Blood transfusions. ENCOUNTER: Initial ACUITY: 2 days PAIN SCORE: 10/10 LOCATION: Left hand. AREA EVALUATED: Left dorsal hand FINDINGS: There is prominent thickening of the soft tissues with some heterogeneous echotexture characteristic of edematous tissue. No drainable fluid collections seen. On color Doppler, there is diffuse increa sed flow. CONCLUSION: Thickened dorsal soft tissues and diffuse increased flow with color Doppler. No drainable fluid michelle ections. Jasen Crockett MD on August 23, 2016 at 19:35 Board Certified Radiologist. This report was verified electronically.
[2016-08-23] MEDS: MULTIVITAMIN INJ 10 ML, FOLIC ACID INJ 1 MG in SODIUM CHLORID 0.9% 500 ML INJ 500 ML IV SCH (20:33)
[2016-08-23] MEDS: THIAMINE INJ 100 MG in SODIUM CHLORIDE 0.9% INJ 100 ML IV SCH (20:33)
--- NOTE | 2016-08-23 23:04 | RADRPT ---
EXAM DATE/TIME: 08/23/2016 22:15 [facility] COMPARISON: MRI BRAIN W/O CONTRAST, August 30, 2015, 13:47. INDICATIONS : Seizures. MEDICAL HISTORY : Seizures. SURGICAL HISTORY : Jaw surgery. Right arm surgery. Left ankle screw. ENCOUNTER: Subsequent ACUITY: 1 day PAIN SCORE: 0/10 LOCATION: cranial TECHNIQUE: Multiplanar, multisequence MRI of the brain was performed without contrast. FINDINGS: Motion degraded exam. CEREBRUM: A small chronic lacunar infarction is seen involving the right head of caudate. The ventricles are no rmal for age. No evidence of midline shift, mass lesion, hemorrhage or acute infarction. No extraax ial fluid collections are seen. The pituitary gland and suprasellar cistern are normal in configurat ion. WHITE MATTER: No significant signal abnormalities are seen in the white matter. POSTERIOR FOSSA: The cerebellum and brainstem are intact. The 4th ventricle is midline. The cerebellopontine angle is unremarkable. The cerebellar tonsils are normal in position. DIFFUSION IMAGING: No focal areas of restricted diffusion are seen. No evidence of acute infarction. EXTRACRANIAL: The visualized portions of the orbits are unremarkable. Chronic mucosal thickening involving the left maxillary sinus. CONCLUSION: 1. Motion degraded exam. 2. No acute intracranial abnormality. 3. Chronic left maxillary sinus disease. Jasen Stanley Jr., MD on August 23, 2016 at 23:00 Board Certified Radiologist. This report was verified electronically.
--- NOTE | 2016-08-23 23:06 | RADRPT ---
EXAM DATE/TIME: 08/23/2016 16:16 [facility] COMPARISON: No previous studies available for comparison. INDICATIONS : Abscess. Third distal interphalangeal joint wound. MEDICAL HISTORY : Seizures. SURGICAL HISTORY : Jaw surgery. Right arm surgery. Left ankle screw. ENCOUNTER: Subsequent ACUITY: 3 day PAIN SCORE: 8/10 LOCATION: Left hand. TECHNIQUE: Multiplanar, multisequence MRI examination was performed without contrast. FINDINGS: The examination is incomplete; patient experienced a seizure during the scan and 4 pulse sequences we re acquired. No contrast was administered. There is prominent soft tissue thickening and edema about the dorsum of the hand extending from the p roximal carpal row into the base of the 4th and 5th digits. No signal abnormality seen in the marrow of the metacarpal or proximal phalanges. The edematous soft tissues does surround the dorsal tendon s. No drainable fluid collections seen. Special attention is directed to the 3rd digit interphalang eal joint. No focal fluid collections seen about the joint. CONCLUSION: Prominent dorsal soft tissue swelling about the hand extending into the proximal 3rd and 4th digits. No focal signal abnormalities within the marrow of the osseous structures. Jasen Crockett MD on August 23, 2016 at 23:01 Board Certified Radiologist. This report was verified electronically.
[2016-08-24] VITALS (9 sets, daily range): BP systolic 113–132; BP diastolic 63–86; PULSE 73–96; RESP 13–31; TEMP 97.6–98.6; O2SAT 95–100
[2016-08-24] MEDS: CIPROFLOXACIN 400 MG PREMIX 200 ML IV SCH ×2 (04:10→19:02)
[2016-08-24 04:56] LABS: AUTOMATED NEUTROPHIL # 4.5 TH/MM3 (1.8-7.7); BASOPHIL % 0.7 % (0.0-2.0); EOSINOPHIL # 0.2 TH/MM3 (0-0.4); EOSINOPHIL % 2.7 % (0.0-4.0); HEMATOCRIT 36.5 % (35.0-46.0); HEMO FLAGS DIFF FINAL; LYMPH % 25.3 % (9.0-44.0); LYMPHOCYTE # 1.8 TH/MM3 (1.0-4.8); MEAN CELL VOLUME 91.1 FL (80.0-100.0); MEAN CORPUSCULAR HEMOGLOBIN 29.7 PG (27.0-34.0); MEAN CORPUSCULAR HGB CONC 32.6 % (32.0-36.0); MONO % 7.8 % (0.0-8.0); NEUT % 63.5 % (16.0-70.0); PLATELET COUNT 200 TH/MM3 (150-450); RED CELL DISTRIBUTION WIDTH 13.2 % (11.6-17.2); WHITE BLOOD COUNT 7.1 TH/MM3 (4.0-11.0)
[2016-08-24 05:28] LABS: ALT (GPT) 22 U/L (10-53); ANION GAP 9 MEQ/L (5-15); AST (GOT) 20 U/L (15-37); BICARBONATE 24.6 MEQ/L (21.0-32.0); BLOOD UREA NITROGEN 14 MG/DL (7-18); CHLORIDE 107 MEQ/L (98-107); GLOMERULAR FILTRATION RATE 115 ML/MIN (>89); POTASSIUM 3.7 MEQ/L (3.5-5.1); SODIUM (NA) 141 MEQ/L (136-145)
[2016-08-24 05:36] LABS: ALKALINE PHOSPHATASE 99 U/L (45-117); CREATINE KINASE 128 U/L (26-192); TOTAL BILIRUBIN ADULT 0.4 MG/DL (0.2-1.0)
[2016-08-24] MEDS: CLINDAMYCIN 150 MG CAP PO SCH ×4 (06:15→23:13)
[2016-08-24] MEDS ORDERED: LORazepam 2 MG/ML VIAL IM ONE ×2 (09:15→09:45)
[2016-08-24] MEDS: levETIRAcetam 1000 MG INJ 100 ML IV SCH ×2 (10:34→19:42)
[2016-08-24] MEDS: SODIUM CHLORIDE 0.9% FLUSH 10 ML FLUSH IV FLUSH SCH ×2 (10:35→20:37)
[2016-08-24] MEDS: PHENYTOIN SODIUM 100 MG CAP PO SCH ×3 (10:42→20:37)
[2016-08-24] MEDS ORDERED: CHLORHEXIDINE GLUCONATE 2 % 1 PACK (2 CLOTHS)(extra cloths) TOPICAL PRN (10:45)
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
[2016-08-24] MEDS: KETOROLAC TROMETHAMINE 30 MG/ML (IVP) VIAL IV PUSH PRN ×2 (14:51→20:39)
--- NOTE | 2016-08-24 16:06 | HHI.PR ---
Subjective Remarks Follow-up for seizure activity, alcohol and other substance abuse. This morning around 8:00, patient experienced an episode of seizure activity. We evaluated patient at bedside and managed acutely. Patient was subsequently transferred to ICU. Objective Vitals Vital Signs Date Time Temp Pulse Resp B/P Pulse Ox O2 Delivery O2 Flow Rate FiO2 08/24/16 08:40 96 13 113/78 96 08/24/16 07:53 98.1 83 14 128/86 96 08/24/16 04:29 98.6 73 18 113/63 96 08/23/16 23:29 98.1 88 18 119/73 94 08/23/16 19:40 97.5 83 18 113/73 96 08/23/16 16:48 97.8 90 22 162/80 98 Result Diagram: 08/24/16 0325 08/24/16 0325 Imaging Last Impressions Upper Extremity Ultrasound 08/23/16 0000 Signed Impressions: Service Date/Time: Tuesday, August 23, 2016 18:33 - CONCLUSION: Thickened dorsal soft tissues and diffuse increased flow with color Doppler. No drainable fluid collections. Jasen Crockett MD Head CT 08/23/16 0000 Signed Impressions: Service Date/Time: Tuesday, August 23, 2016 17:14 - CONCLUSION: 1. No evidence of acute intracranial pathology. No masses are identified. Gregory Chilel MD Hand MRI 08/23/16 0000 Signed Impressions: Service Date/Time: Tuesday, August 23, 2016 16:16 - CONCLUSION: Prominent dorsal soft tissue swelling about the hand extending into the proximal 3rd and 4th digits. No focal signal abnormalities within the marrow of the osseous structures. Jasen Crockett MD Brain MRI 08/23/16 0000 Signed Impressions: Service Date/Time: Tuesday, August 23, 2016 22:15 - CONCLUSION: 1. Motion degraded exam. 2. No acute intracranial abnormality. 3. Chronic left maxillary sinus disease. Jasen Stanley Jr., MD Knee X-Ray 08/22/16 0000 Signed Impressions: Service Date/Time: Monday, August 22, 2016 15:27 - CONCLUSION: Unremarkable examination of the left knee. Thor Ferrer MD Ankle X-Ray 08/22/16 0000 Signed Impressions: Service Date/Time: Monday, August 22, 2016 15:32 - CONCLUSION: Unremarkable examination of the left ankle. Thor Ferrer MD Objective Remarks GENERAL: At the time of seizure activity, patient had whole body jerking movements. No verbal communications. Settled down after IM ativan. SKIN: Warm and dry. HEAD: Normocephalic. EYES: No scleral icterus. No injection or drainage. NECK: Supple, trachea midline. No JVD or lymphadenopathy. CARDIOVASCULAR: Regular rate and rhythm without murmurs, gallops, or rubs. RESPIRATORY: Breath sounds equal bilaterally. No accessory muscle use. GASTROINTESTINAL: Abdomen soft, non-tender, nondistended. MUSCULOSKELETAL: No cyanosis, or edema. BACK: Nontender without obvious deformity. No CVA tenderness. Procedures None. A/P Problem List: (1) Recurrent seizures ICD Code: G40.909 Status: Acute (2) Urinary tract infection ICD Code: N39.0 Status: Acute (3) Alcohol intoxication ICD Code: F10.129 Status: Acute Assessment and Plan Ms. Sun is a 56-year-old female with history of seizures, headaches, anxiety /depression, arthritis, presented to the ER with left ankle pain and had a witnessed generalized tonic clonic seizure while in the ER. 08/24/2016 Around 8AM, patient had another episode of seizure, we went to evaluate patient right away. On arrival, we noticed patient was experiencing whole body jerking movements. Nursing staff stayed with patient to make sure patient remains safe. She did not have any IV access. We administered 2 mg of Lorazepam IM and soon after that patient's seizure activity stopped. Yesterday, patient was started on Keppra as well as given one dose of fosphenytoin. Patient was also started on Dilantin. After patient was stabilized, we transferred patient to ICU. Neurology consult was already placed. We also ordered Dilantin level. Total critical care time spent over 35 minutes on 08/24/2016. Generalized Tonic-Clonic Seizure: witnessed by ER staff. With hx of seizures on Keppra as outpatient, questionable compliance. However likely related to recent drug use, alcohol intoxication, vs infection with UTI. UDS positive for cocaine , Etoh level 238. S/p IV Keppra bolus in the ER. Restart patient's Keppra 1000mg po bid. Outpatient f/up with patient's neurologist. - On 08/23/2016, patient had a seizure activity while she was in radiology. Received 2mg of Ativan X 1. Neurology was consulted. Brain MRI, EEG, IV Cerebyx , Dilantin started - Neurology evaluated patient today and recommended to continue Keppra 1g BID , Dilantin 100mg TID. - Follow up Dilantin and Keppra levels. Urinary tract infection with E. Coli. - Cx positive for [place]-sensitive E. Coli. Continue IV Cipro. Left Dorsal Hand Cellulitis: MRI shows soft tissue swelling. Continue Clinda 300mg q6h. Left Ankle Sprain: xray negative for fracture. Continue SHAYNE wrap. Crutches if needed. PT eval. Cocaine Use: counseled on cessation, although patient denies cocaine use. Alcohol Use: counseled on cessation. Thiamine/MV/folate. CIWA protocol. Full code. SCDs. Problem Qualifiers (1) Urinary tract infection: Qualified Code: N39.0 - Urinary tract infection with hematuria, site unspecified (2) Alcohol intoxication: Qualified Code: F10.120 - Alcohol intoxication, uncomplicated Fabienne Tanner DO Aug 24, 2016 4:05 pm
--- NOTE | 2016-08-24 16:14 | MG ---
cc: VINI MACKAY M.D. Lab No: Date: 08/24/2016 Age: Sex: F Race: Cc: DATE OF 1960 56 years old. ELECTROENCEPHALOGRAM NUMBER [id number] REFERRING PHYSICIAN ANGEL Patel ROOM 511 With photic stimulation. Awake, drowsy, asleep study. EEG in 2016 was normal. MRI no acute findings. A 56-year-old woman with left lower extremity pain and change in mental status. Inhaled unknown substance from a straw from a drug dealer apparently. Ethanol level was 238. Positive UDS for cocaine. History of possible seizures, head trauma, dizziness, substance abuse, previous suicide attempt. MEDICATIONS On: 1. Keppra. 2. Dilantin. 3. Cleocin. 4. Cipro. DESCRIPTION OF RECORD Seems to be some faster frequency waves consistent with what looks like beta waves. EKG looks sinus. A lot of muscle movement artifact documented and seen. Photic stimulation minimal driving response but more artifactual. No epileptic activity. IMPRESSION Questionably abnormal EEG. There is some beta wave activity at times, may be medicine effect but there is no evidence of any epileptiform features. Clinical correlation MD ROSAURA Stein/CARLITOS /2:18 PM /3:54 PM
--- NOTE | 2016-08-24 17:55 | RADRPT ---
EXAM DATE/TIME: 08/24/2016 11:33 [facility] COMPARISON: CT BRAIN W/O CONTRAST, August 23, 2016, 17:14. INDICATIONS : Seizure, postictal left side weakness. RADIATION DOSE: 56.35 CTDIvol (mGy) MEDICAL HISTORY : Cardiovascular disease. Hypertension. SURGICAL HISTORY : None. ENCOUNTER: Initial ACUITY: 1 day PAIN SCALE: 0/10 LOCATION: cranial TECHNIQUE: Multiple contiguous axial images were obtained of the head. Using automated exposure control and adj ustment of the mA and/or kV according to patient size, radiation dose was kept as low as reasonably a chievable to obtain optimal diagnostic quality images. FINDINGS: CEREBRUM: The ventricles are normal for age. No evidence of midline shift, mass lesion, hemorrhage or acute in farction. No extra-axial fluid collections are seen. POSTERIOR FOSSA: The cerebellum and brainstem are intact. The 4th ventricle is midline. The cerebellopontine angle i s unremarkable. EXTRACRANIAL: The visualized portion of the orbits is intact. SKULL: The calvaria is intact. No evidence of skull fracture. Mucoperiosteal thickening is present in the left maxillary sinus. CONCLUSION: Negative for acute process. Epifanio Johansen MD FACR on August 24, 2016 at 17:53 Board Certified Radiologist. This report was verified electronically.
[2016-08-24] MEDS: MULTIVITAMIN INJ 10 ML, FOLIC ACID INJ 1 MG in SODIUM CHLORID 0.9% 500 ML INJ 500 ML IV SCH (20:37)
[2016-08-24] MEDS: THIAMINE INJ 100 MG in SODIUM CHLORIDE 0.9% INJ 100 ML IV SCH (20:37)
[2016-08-25] VITALS (11 sets, daily range): BP systolic 100–142; BP diastolic 62–81; PULSE 69–103; RESP 16–24; TEMP 97.7–98.6; O2SAT 93–99
[2016-08-25] MEDS: KETOROLAC TROMETHAMINE 30 MG/ML (IVP) VIAL IV PUSH PRN (01:46)
[2016-08-25] MEDS: CHLORHEXIDINE GLUCONATE 2 % 1 PACK (2 CLOTHS)(taper/protocol) TOPICAL SCH (04:00)
[2016-08-25] MEDS: CLINDAMYCIN 150 MG CAP PO SCH ×3 (06:22→17:23)
[2016-08-25] MEDS: PHENYTOIN SODIUM 100 MG CAP PO SCH ×2 (06:22→13:31)
[2016-08-25] MEDS: CIPROFLOXACIN 400 MG PREMIX 200 ML IV SCH ×2 (06:23→17:23)
--- NOTE | 2016-08-25 08:34 | HHI.PR ---
Subjective Remarks Follow-up for seizure activity, alcohol and other substance abuse. Ms. Sun was very agitated this morning. She had two episodes of seizure activities last night. After talking to patient, she calms down and gets into bed. Objective Vitals Vital Signs Date Time Temp Pulse Resp B/P Pulse Ox O2 Delivery O2 Flow Rate FiO2 08/25/16 06:00 76 08/25/16 04:03 98.1 87 21 138/80 94 08/25/16 04:00 87 08/25/16 02:00 81 08/25/16 00:00 98.0 77 18 116/70 96 08/25/16 00:00 77 08/24/16 22:00 96 08/24/16 20:00 98.3 88 17 132/84 100 08/24/16 20:00 88 08/24/16 18:00 93 08/24/16 16:00 96 08/24/16 16:00 97.6 96 31 98 08/24/16 15:51 18 08/24/16 14:00 79 08/24/16 14:00 97.9 79 16 131/83 95 08/24/16 12:00 81 08/24/16 08:40 96 13 113/78 96 I/O 08/24/16 08/24/16 08/24/16 08/25/16 08/25/16 08/25/16 07:00 15:00 23:00 07:00 15:00 23:00 Intake Total 669 ml 593 ml 740 ml Output Total 500 ml 825 ml Balance 669 ml 93 ml -85 ml Intake Oral 480 ml 240 ml IV Total 189 ml 593 ml 500 ml Output Urine Total 500 ml 825 ml # Voids 3 2 # Bowel Movements 1 Result Diagram: 08/24/16 0325 08/24/16 0325 Imaging Last Impressions Head CT 08/24/16 0000 Signed Impressions: Service Date/Time: Wednesday, August 24, 2016 11:33 - CONCLUSION: Negative for acute process. Epifanio Johansen MD FACR Upper Extremity Ultrasound 08/23/16 0000 Signed Impressions: Service Date/Time: Tuesday, August 23, 2016 18:33 - CONCLUSION: Thickened dorsal soft tissues and diffuse increased flow with color Doppler. No drainable fluid collections. Jasen Crockett MD Hand MRI 08/23/16 Signed Impressions: Service Date/Time: Tuesday, August 23, 2016 16:16 - CONCLUSION: Prominent dorsal soft tissue swelling about the hand extending into the proximal 3rd and 4th digits. No focal signal abnormalities within the marrow of the osseous structures. Jasen Crockett MD Brain MRI 08/23/16 Signed Impressions: Service Date/Time: Tuesday, August 23, 2016 22:15 - CONCLUSION: 1. Motion degraded exam. 2. No acute intracranial abnormality. 3. Chronic left maxillary sinus disease. Jasen Stanley Jr., MD Knee X-Ray 08/22/16 Signed Impressions: Service Date/Time: Monday, August 22, 2016 15:27 - CONCLUSION: Unremarkable examination of the left knee. Thor Ferrer MD Ankle X-Ray 08/22/16 Signed Impressions: Service Date/Time: Monday, August 22, 2016 15:32 - CONCLUSION: Unremarkable examination of the left ankle. Thor Ferrer MD Objective Remarks GENERAL: At the time of seizure activity, patient had whole body jerking movements. No verbal communications. Settled down after IM ativan. SKIN: Warm and dry. HEAD: Normocephalic. EYES: No scleral icterus. No injection or drainage. NECK: Supple, trachea midline. No JVD or lymphadenopathy. CARDIOVASCULAR: Regular rate and rhythm without murmurs, gallops, or rubs. RESPIRATORY: Breath sounds equal bilaterally. No accessory muscle use. GASTROINTESTINAL: Abdomen soft, non-tender, nondistended. MUSCULOSKELETAL: No cyanosis, or edema. BACK: Nontender without obvious deformity. No CVA tenderness. Procedures None. A/P Problem List: (1) Recurrent seizures ICD Code: G40.909 Status: Acute (2) Urinary tract infection ICD Code: N39.0 Status: Acute (3) Alcohol intoxication ICD Code: F10.129 Status: Acute Assessment and Plan Ms. Sun is a 56-year-old female with history of seizures, headaches, anxiety /depression, arthritis, presented to the ER with left ankle pain and had a witnessed generalized tonic clonic seizure while in the ER. Generalized Tonic-Clonic Seizure: witnessed by ER staff. With hx of seizures on Keppra as outpatient, questionable compliance. However likely related to recent drug use, alcohol intoxication, vs infection with UTI. UDS positive for cocaine , Etoh level 238. S/p IV Keppra bolus in the ER. Restart patient's Keppra 1000mg po bid. - On 08/23/2016, patient had a seizure activity while she was in radiology. Received 2mg of Ativan X 1. Neurology was consulted. Brain MRI, EEG, IV Cerebyx , Dilantin started - Neurology evaluated patient today and recommended to continue Keppra 1g BID , Dilantin 100mg TID. - Dilantin level 13.4 and 13.0. Alcohol Use Alcohol withdrawal - Will start patient on Librium 50mg TID. Haldol 5mg IM PRN for acute agitation. Discussed with RN regarding using Ativan for agitation/withdrawal first before haldol. - counseled on cessation. Thiamine/MV/folate. CIWA protocol. Urinary tract infection with E. Coli. - Cx positive for richmond-sensitive E. Coli. Continue IV Cipro. Left Dorsal Hand Cellulitis: MRI shows soft tissue swelling. Continue Clinda 300mg q6h. Left Ankle Sprain: xray negative for fracture. Continue SHAYNE wrap. Crutches if needed. PT eval. Cocaine Use: counseled on cessation, although patient denies cocaine use. Full code. SCDs. Problem Qualifiers (1) Urinary tract infection: Qualified Code: N39.0 - Urinary tract infection with hematuria, site unspecified (2) Alcohol intoxication: Qualified Code: F10.120 - Alcohol intoxication, uncomplicated Fabienne Tanner DO Aug 25, 2016 8:34 am
[2016-08-25] MEDS: levETIRAcetam 1000 MG INJ 100 ML IV SCH ×2 (08:42→22:26)
[2016-08-25] MEDS: LORazepam 2 MG/ML VIAL IV PUSH PRN ×4 (08:43→21:12)
[2016-08-25] MEDS: HALOPERIDOL LACTATE 5 MG/ML AMP IM PRN ×2 (08:43→14:09)
[2016-08-25] MEDS: SODIUM CHLORIDE 0.9% FLUSH 10 ML FLUSH IV FLUSH SCH ×2 (09:00→21:11)
[2016-08-25] MEDS: chlordiazePOXIDE 25 MG CAP PO PRN ×2 (10:03→17:23)
[2016-08-25] MEDS ORDERED: REMOVE OLD PATCH T-DERMAL SCH ×2 (13:00→21:00)
[2016-08-25] MEDS: NICOTINE 14 MG/24 HR PATCH T-DERMAL SCH (13:43)
--- NOTE | 2016-08-25 21:32 | HHI.PR ---
Review/Management Diagnosis - Breakthrough seizures Likely etiology alcohol-related, questionable compliance. - Alcohol intoxication. - Illicit drug abuse/ UDS positive for Cocaine. - UTI. Plan 1. Neuro checks q. one hourly. 2. Keppra 1 gram twice daily. 3. Dilantin 100 mg three times daily. 4. Seizure precautions. 5. Fall precautions. 6. CIWA protocol. 7. DVT prophylaxis with SCDs. Diagnosis/Plan: Subjective Subjective Comments Patient was witnessed with a seizure activity overnight Charge nurse witnessed an 'episode' this morning, and states that it was not a true seizure, patient was agitated EEG with no evidence of an electrographic seizure MRI brain was reported with no acute intracranial abnormality Dilantin & Keppra levels are therapeutic Active Medications Current Medications Medications (Trade) Dose Ordered Sig/Jesus Route Start Time Stop Time Status Last Admin (NS Flush) 2 ml UNSCH PRN IV FLUSH 08/23/16 04:30 (NS Flush) 2 ml BID IV FLUSH 08/23/16 09:00 08/25/16 21:11 (Narcan Inj) 0.4 mg UNSCH PRN IV 08/23/16 04:30 (Romazicon Inj) 0.2 mg Q1M PRN IV PUSH 08/23/16 04:30 (Ativan) 1 mg Q4H PRN PO 08/23/16 04:30 (Ativan Inj) 1 mg Q4H PRN IV PUSH 08/23/16 04:30 08/23/16 20:34 (Ativan) 2 mg Q2H PRN PO 08/23/16 04:30 (Ativan Inj) 2 mg Q2H PRN IV PUSH 08/23/16 04:30 08/25/16 21:12 (Ativan Inj) 2 mg Q1H PRN IV PUSH 08/23/16 04:30 Lorazepam 2 mg 2 mg Q15M PRN IV PUSH 08/23/16 04:30 08/25/16 13:31 (Cipro 400 Mg Premix) 200 ml @ 200 mls/hr Q12H IV 08/23/16 05:00 08/25/16 17:23 (Keppra) 1,000 mg Q12HR PO 08/23/16 12:00 Hold 08/23/16 20:34 (Toradol Inj) 15 mg Q6H PRN IV PUSH 08/23/16 12:45 08/28/16 12:44 08/25/16 01:46 (Cleocin) 300 mg Q6HR PO 08/23/16 18:00 08/25/16 17:23 Lorazepam 2 mg 2 mg Q15M PRN IV PUSH 08/23/16 17:00 08/24/16 19:42 Multivitamins 10 ml/Folic Acid 1 mg/Sodium Chloride 510.2 ml @ 125 mls/hr Q24H IV 08/23/16 20:00 08/28/16 19:59 08/24/16 20:37 (Thiamine Inj/NS Inj) 101 ml @ 100 mls/hr Q24H IV 08/23/16 20:00 08/26/16 19:59 08/24/16 20:37 (Vitamin B1) 100 mg DAILY PO 08/27/16 09:00 Phenytoin 100 mg 100 mg Q8HR PO 08/24/16 08:00 08/25/16 13:31 (Keppra 1000 Mg Inj) 100 ml @ 400 mls/hr Q12HR IV 08/24/16 09:00 08/25/16 08:42 Miscellaneous Information Patient in critical care unit? Ass... [id number] .[id number] 08/24/16 10:45 (Chlorhexidine 2% Cloth) 3 pack DAILY@04 TOPICAL 08/25/16 04:00 08/29/16 04:01 08/25/16 04:00 (Chlorhexidine 2% Cloth) 3 pack UNSCH PRN TOPICAL 08/24/16 10:45 08/29/16 10:35 (Haldol Inj) 5 mg Q6H PRN IM 08/25/16 08:00 08/25/16 14:09 (Librium) 50 mg Q6H PRN PO 08/25/16 08:00 08/25/16 17:23 (Habitrol 14 Mg Patch.24 Hr) 1 patch DAILY T-DERMAL 08/25/16 14:00 08/25/16 13:43 Miscellaneous Information 1 HS T-DERMAL 08/25/16 21:00 Allergies Allergies Coded Allergies Iodine (Verified Adverse Reaction, Severe, Anaphylaxis, 08/22/16) Penicillin (Verified Adverse Reaction, Severe, Anaphylaxis, 08/22/16) *MDRO Multi-Drug Resistant Organism (Verified Adverse Reaction, Unknown, ) Review of Systems All other ROS: ROS reviewed as documented in chart Exam I&O / VS 08/24/16 08/24/16 08/25/16 15:00 23:00 07:00 Intake Total 669 ml 593 ml 740 ml Output Total 500 ml 825 ml Balance 669 ml 93 ml -85 ml Intake Oral 480 ml 240 ml IV Total 189 ml 593 ml 500 ml Output Urine Total 500 ml 825 ml # Voids 2 Vital Signs Date Time Temp Pulse Resp B/P Pulse Ox O2 Delivery O2 Flow Rate FiO2 08/25/16 18:00 74 08/25/16 16:00 98.1 71 16 115/76 98 08/25/16 16:00 71 08/25/16 12:00 78 08/25/16 12:00 98.6 78 16 100/62 94 08/25/16 08:00 83 08/25/16 08:00 97.7 103 24 142/81 93 08/25/16 06:00 76 08/25/16 04:03 98.1 87 21 138/80 94 08/25/16 04:00 87 08/25/16 02:00 81 08/25/16 00:00 98.0 77 18 116/70 96 08/25/16 00:00 77 08/24/16 22:00 96 Exam Comments GENERAL: The patient is awake, eating dinner during the clinical encounter, occasionally sleepy HEENT: Atraumatic, normocephalic. Intact hearing. Intact vision. NECK: Supple. No signs of meningeal irritation. CARDIOVASCULAR: Regular rate and rhythm. RESPIRATORY: Clear to auscultation. No wheezes. MUSCULOSKELETAL: No obvious deformity. No edema. Moves extremities more on the right side than the left side. NEUROLOGICAL: Awake, alert, oriented to person, place and time, Pupils are equal , reacting to light. No gaze paresis. No signs of meningeal irritation. Reflexes 1+ bilateral symmetrical. Plantars are bilateral downgoing. Moves all extremities equally, intact sensation throughout, normal cerebellar functions PSYCHOLOGICAL: Calm, no agitations, no signs of visual delusions. Objective Radiology Results Last [address] 08/24/16 0000 Signed Impressions: Service Date/Time: Wednesday, August 24, 2016 11:33 - CONCLUSION: Negative for acute process. Epifanio Johansen MD FACR Upper Extremity Ultrasound 08/23/16 0000 Signed Impressions: Service Date/Time: Tuesday, August 23, 2016 18:33 - CONCLUSION: Thickened dorsal soft tissues and diffuse increased flow with color Doppler. No drainable fluid collections. Jasen Crockett MD Head CT 08/23/16 0000 Signed Impressions: Service Date/Time: Tuesday, August 23, 2016 17:14 - CONCLUSION: 1. No evidence of acute intracranial pathology. No masses are identified. Gregory Chilel MD Hand MRI 08/23/16 0000 Signed Impressions: Service Date/Time: Tuesday, August 23, 2016 16:16 - CONCLUSION: Prominent dorsal soft tissue swelling about the hand extending into the proximal 3rd and 4th digits. No focal signal abnormalities within the marrow of the osseous structures. Jasen Crockett MD Brain MRI 08/23/16 0000 Signed Impressions: Service Date/Time: Tuesday, August 23, 2016 22:15 - CONCLUSION: 1. Motion degraded exam. 2. No acute intracranial abnormality. 3. Chronic left maxillary sinus disease. Jasen Stanley Jr., MD Micro and Labs Date/Time Procedure Status Source Growth 08/22/16 16:40 Urine Culture - Final Complete Urine Catheterized Urine Escherichia Coli Sue Carson MD Aug 25, 2016 21:32
[2016-08-25] MEDS: THIAMINE INJ 100 MG in SODIUM CHLORIDE 0.9% INJ 100 ML IV SCH (22:22)
[2016-08-25] MEDS: MULTIVITAMIN INJ 10 ML, FOLIC ACID INJ 1 MG in SODIUM CHLORID 0.9% 500 ML INJ 500 ML IV SCH (22:42)
[2016-08-26] VITALS: BP 101/69; PULSE 69; RESP 19; TEMP 98.2; O2SAT 95
[2016-08-26] MEDS: CLINDAMYCIN 150 MG CAP PO SCH ×3 (00:19→12:57)
[2016-08-26] MEDS: PHENYTOIN SODIUM 100 MG CAP PO SCH ×3 (00:19→12:56)
[2016-08-26] MEDS: chlordiazePOXIDE 25 MG CAP PO PRN ×2 (00:20→08:00)
[2016-08-26 02:00] VITALS: PULSE 65
[2016-08-26 04:00] VITALS: BP 101/56; PULSE 67; RESP 16; TEMP 98.1; O2SAT 100
[2016-08-26] MEDS: CHLORHEXIDINE GLUCONATE 2 % 1 PACK (2 CLOTHS)(taper/protocol) TOPICAL SCH (04:00)
[2016-08-26] MEDS: CIPROFLOXACIN 400 MG PREMIX 200 ML IV SCH (05:20)
[2016-08-26 06:00] VITALS: PULSE 78
[2016-08-26] MEDS: HALOPERIDOL LACTATE 5 MG/ML AMP IM PRN (06:00)
[2016-08-26] MEDS: LORazepam 2 MG/ML VIAL IV PUSH PRN (06:01)
[2016-08-26] MEDS: NICOTINE 14 MG/24 HR PATCH T-DERMAL SCH (08:00)
[2016-08-26] MEDS: levETIRAcetam 1000 MG INJ 100 ML IV SCH (08:01)
[2016-08-26] MEDS: SODIUM CHLORIDE 0.9% FLUSH 10 ML FLUSH IV FLUSH SCH (09:00)
[2016-08-26] MEDS ORDERED: FOLI1TAB4 PO (10:56)
[2016-08-26] MEDS ORDERED: DILA100C PO (10:56)
[2016-08-26] MEDS ORDERED: KEPP10002 PO (10:56)
[2016-08-26] MEDS ORDERED: CLIN150 PO (10:56)
[2016-08-26] MEDS ORDERED: CHLO25CA2 PO (10:56)
[2016-08-26] MEDS ORDERED: VITA100T2 PO (10:56)
--- NOTE | 2016-08-26 10:59 | HHI.DS ---
Discharge Summary Admission Date Aug 23, 2016 at 5:49 pm Discharge Date: Aug 26, 2016 Admitting Diagnosis AMS, Seizure activity, Polysubstance abuse (1) Recurrent seizures ICD Code: G40.909 Diagnosis: Principal (2) Urinary tract infection ICD Code: N39.0 (3) Alcohol intoxication ICD Code: F10.129 Diagnosis: Principal Procedures None. Brief History - From Admission 56-year-old female with history of seizures, headaches, anxiety/depression, arthritis, presented to the ER with left ankle pain and had a witnessed generalized tonic clonic seizure while in the ER. The patient reports she came to the hospital because her left ankle was hurting, she was unable to ambulate, therefore she called 911. While in the ER, left ankle xray was negative for fracture, she was diagnosed with left ankle sprain, SHAYNE wrap provided, and the patient was being discharged. While in the ER, staff witnessed generalized tonic clonic seizure, s/p IV Ativan 2mg. She denies illicit drug use although UDS positive for cocaine, etoh level 238. The patient reports compliance with her Keppra 1000mg bid. She follows up with a neurologist in [place]. Denies recent fevers/chills. Denies any abdominal pain/nausea/vomiting/diarrhea/ constipation. Urinalysis positive for UTI. The patient does report some dysuria. Currently the patient is very drowsy seen in CDU. She also complains of left dorsal hand swelling s/p IV infiltration. She is requesting pain medications for the left hand pain. She has no other medical complaints at this time. CBC/BMP: 08/24/16 0325 08/24/16 0325 Significant Findings Laboratory Tests Test 08/24/16 03:25 Random Glucose 107 MG/DL (74-106) Albumin 3.0 GM/DL (3.4-5.0) Imaging Last Impressions Head CT 08/24/16 0000 Signed Impressions: Service Date/Time: Wednesday, August 24, 2016 11:33 - CONCLUSION: Negative for acute process. Epifanio Johansen MD FACR Upper Extremity Ultrasound 4/4/17 0000 Signed Impressions: Service Date/Time: Tuesday, August 23, 2016 18:33 - CONCLUSION: Thickened dorsal soft tissues and diffuse increased flow with color Doppler. No drainable fluid collections. Jasen Crockett MD Hand MRI 08/23/16 Signed Impressions: Service Date/Time: Tuesday, August 23, 2016 16:16 - CONCLUSION: Prominent dorsal soft tissue swelling about the hand extending into the proximal 3rd and 4th digits. No focal signal abnormalities within the marrow of the osseous structures. Jasen Crockett MD Brain MRI 08/23/16 Signed Impressions: Service Date/Time: Tuesday, August 23, 2016 22:15 - CONCLUSION: 1. Motion degraded exam. 2. No acute intracranial abnormality. 3. Chronic left maxillary sinus disease. Jasen Stanley Jr., MD Knee X-Ray 08/22/16 Signed Impressions: Service Date/Time: Monday, August 22, 2016 15:27 - CONCLUSION: Unremarkable examination of the left knee. Thor Ferrer MD Ankle X-Ray 08/22/16 Signed Impressions: Service Date/Time: Monday, August 22, 2016 15:32 - CONCLUSION: Unremarkable examination of the left ankle. Thor Ferrer MD PE at Discharge GENERAL: At the time of seizure activity, patient had whole body jerking movements. No verbal communications. Settled down after IM ativan. SKIN: Warm and dry. HEAD: Normocephalic. EYES: No scleral icterus. No injection or drainage. NECK: Supple, trachea midline. No JVD or lymphadenopathy. CARDIOVASCULAR: Regular rate and rhythm without murmurs, gallops, or rubs. RESPIRATORY: Breath sounds equal bilaterally. No accessory muscle use. GASTROINTESTINAL: Abdomen soft, non-tender, nondistended. MUSCULOSKELETAL: No cyanosis, or edema. BACK: Nontender without obvious deformity. No CVA tenderness. Pt update on day of discharge Patient is doing well. No further seizure activity. Tolerating diet well. No acute concerns. Will be discharged home today. Discussed with Dr. Carson ( Neurology) who agreed with our discharge plan. Dr. Carson recommended outpatient follow up with patient's own neurologist. A one week check of Dilantin would be helpful. Patient was strongly advised not to drink alcohol or use illicit drugs. Hospital Course Ms. Sun is a 56-year-old female with history of seizures, headaches, anxiety /depression, arthritis, presented to the ER with left ankle pain and had a witnessed generalized tonic clonic seizure while in the ER. UDS positive for cocaine, Etoh level 238. Patient received Keppra IV in the ED. In the subsequent days, patient had witnessed seizure activity in the hospital. She was transferred to ICU for closer observation. In the ICU, patient was started on Librium and we continued Keppra and Dilantin which was started by neurologist. On 08/26/2016, patient was doing well. Discussed with Neurology who agreed with our plan to discharge patient. Patient was strongly advised against using alcohol and other illicit substances including Cocaine. Patient verbalized understanding. During this admission, patient also mentioned a left hand dorsal cellulitis present at the time of admission. We provided Clindamycin for this cellulitis. Patient was discharged home on 08/26/2016. Patient will follow up with her neurologist with regards to her seizure activities and medications. Pt Condition on Discharge: Good Discharge Disposition: Discharge Home Discharge Time: > 30 minutes Discharge Instructions DIET: Follow Instructions for: Heart Healthy Diet Activities you can perform: Regular-No Restrictions Follow up Referrals: Neurology - 1 Week PCP Follow-up - 1 Week New Orders: DILANTIN (FREE) - 1 Week New Medications: Folic Acid (Folate) 1 Mg Tab 1 MG PO DAILY Nutritional Supplement #30 Ref 0 TAB Chlordiazepoxide (Chlordiazepoxide) 25 Mg Cap 25 MG PO Q6H PRN WITHDRAWAL #28 CAP Clindamycin (Cleocin) 150 Mg Cap 300 MG PO Q6HR Infection #20 CAP Phenytoin Extended (Dilantin) 100 Mg Cap 100 MG PO Q8HR Seizure Control #90 CAP Thiamine (Vitamin B-1) 100 Mg Tab 100 MG PO DAILY vitamin supp #30 TAB Continued Medications: Albuterol 18 GM Inh (Ventolin Hfa 18 GM Inh) 90 Mcg/Act Aer 2 PUFF INH Q4H PRN SHORTNESS OF BREATH #1 Ref 0 INHALER Levetiracetam (Keppra) 1,000 Mg Tab 1000 MG PO BID Control Seizures #60 Ref 0 TAB (This prescription has been renewed) Discontinued Medications: Nitrofurantoin Monohydrate Macrocrystals (Nitrofurantoin Monohydrate Macrocrystals) 100 Mg Cap 100 MG PO BID Infection Days 7 Ref 0 CAP Ahmed,Shahabuddin DO Aug 26, 2016 10:59
[2016-08-26 12:00] VITALS: BP 136/59; PULSE 91; RESP 20; TEMP 97.7; O2SAT 95
[2016-08-27] MEDS ORDERED: THIAMINE HCL 100 MG TAB PO SCH (09:00)
[2016-09-12] MEDS ORDERED: CLINPOW PO (15:58)
[2016-09-12] MEDS ORDERED: KEPP10002 PO (16:09)
[2016-09-12] MEDS ORDERED: DILA100C PO (16:09)
[2016-09-12] MEDS ORDERED: VENTAER INH (16:12)
[2016-11-10] MEDS ORDERED: HYDR50CA PO (16:00)
[2016-11-10] MEDS ORDERED: AMIT50TA3 PO (16:00)
[2016-11-10] MEDS ORDERED: OXCA300T PO (16:00)
[2016-11-10] MEDS ORDERED: QUET-88 PO (16:00)
[2016-11-10] MEDS ORDERED: GABA300C5 PO (16:37)
== END 2016-08-26 13:35 | disposition home or self-care (01) | DRG 563 ==
LOC: NEPA 14:46 → NEDA 08-23 04:24 → NEPHCDU 08-23 06:29 → OBSVTOIN 08-23 17:49 → HIME 08-24 09:40
PROVIDERS: ADMIT Hospitalist; ATTEND Hospitalist
DX: S93.402A Sprain of unspecified ligament of left ankle, initial encounter (principal); G40.419 Other generalized epilepsy and epileptic syndromes, intractable, without status epilepticus; N39.0 Urinary tract infection, site not specified; L03.114 Cellulitis of left upper limb; F10.239 Alcohol dependence with withdrawal, unspecified; B96.20 Unspecified Escherichia coli [E. coli] as the cause of diseases classified elsewhere; I10 Essential (primary) hypertension; Y90.7 Blood alcohol level of 200-239 mg/100 ml; E78.00 Pure hypercholesterolemia, unspecified; F14.10 Cocaine abuse, uncomplicated; Z72.0 Tobacco use; R30.0 Dysuria; R74.8 Abnormal levels of other serum enzymes; G47.00 Insomnia, unspecified; G43.909 Migraine, unspecified, not intractable, without status migrainosus
CPT/HCPCS: 70450; 70551; 73218; 73564; 73610; 76882; 76937; 80053; 80177; 80185; 80307; 81001; 82550; 82552; 83605; 83735; 84443; 85025; 87077; 87086; 87186; 87641; 95819; 96361; 96374; E0113; G8987-GP; G8988-GP; J0744; J1630; J1885; J1953; J2060; J3411; J7030; J7040; L1906; Q2009

== ENCOUNTER 2016-08-26 20:54 | Inpatient (IN) | payer OTHER ==
[~2016-08-26] VITALS: Ht 167.6 cm; Wt 54.0 kg
[~2016-08-26 20:54] MED LIST changes: +CHLO25CA2 PO; +CLIN150 PO; +DILA100C PO; +FOLI1TAB4 PO; +NITR100C4 PO; +VITA100T2 PO
[2016-08-26 20:57] VITALS: BP 148/80; PULSE 100; RESP 38; TEMP 97.8; O2SAT 97
[2016-08-26] MEDS ORDERED: LORazepam 2 MG/ML VIAL ONE (21:04)
[2016-08-26] MEDS ORDERED: LORazepam 2 MG/ML VIAL IV PUSH ONE (21:30)
[2016-08-26] MEDS ORDERED: levETIRAcetam INJ 1,000 MG in SODIUM CHLORIDE 0.9% INJ 100 ML IV ONE (21:30)
[2016-08-26] MEDS ORDERED: SODIUM CHLOR 0.9% 1000 ML INJ 1,000 ML IV ONE (21:30)
[2016-08-26 21:36] LABS: AUTOMATED NEUTROPHIL # 3.1 TH/MM3 (1.8-7.7); BASOPHIL % 0.4 % (0.0-2.0); EOSINOPHIL # 0.1 TH/MM3 (0-0.4); EOSINOPHIL % 2.4 % (0.0-4.0); HEMO FLAGS DIFF FINAL; LYMPH % 31.9 % (9.0-44.0); LYMPHOCYTE # 1.7 TH/MM3 (1.0-4.8); MEAN CELL VOLUME 91.6 FL (80.0-100.0); MEAN CORPUSCULAR HEMOGLOBIN 30.6 PG (27.0-34.0); MEAN CORPUSCULAR HGB CONC 33.4 % (32.0-36.0); MONO % 6.7 % (0.0-8.0); NEUT % 58.6 % (16.0-70.0); PLATELET COUNT 219 TH/MM3 (150-450); RED BLOOD COUNT 4.15 MIL/MM3 (4.00-5.30); RED CELL DISTRIBUTION WIDTH 13.1 % (11.6-17.2); WHITE BLOOD COUNT 5.3 TH/MM3 (4.0-11.0)
[2016-08-26 21:56] VITALS: BP 113/79; PULSE 78; RESP 17; O2SAT 100
[2016-08-26] MEDS ORDERED: levETIRAcetam 1000 MG INJ 100 ML IV ONE (22:00)
[2016-08-26 22:20] LABS: ALKALINE PHOSPHATASE 114 U/L (45-117); ALT (GPT) 30 U/L (10-53); ANION GAP 10 MEQ/L (5-15); AST (GOT) 46 U/L (15-37); BLOOD UREA NITROGEN 8 MG/DL (7-18); CHLORIDE 112 MEQ/L (98-107); GLOMERULAR FILTRATION RATE 106 ML/MIN (>89); POTASSIUM 4.3 MEQ/L (3.5-5.1); SODIUM (NA) 144 MEQ/L (136-145); TOTAL BILIRUBIN ADULT 0.2 MG/DL (0.2-1.0)
[2016-08-26 22:27] LABS: BLOOD GAS BASE EXCESS -2.2 mmol/L (-2-2); BLOOD GAS HCO3 22 mmol/L (22-26); BLOOD GAS METHEMOGLOBIN 0.7 % (0-2); BLOOD GAS O2 HGB SATURATION 95 % (90-100); BLOOD GAS OXYGEN CONTENT 16.5 Vol % (12.0-20.0); BLOOD GAS PCO2 37 mmHg (38-42); BLOOD GAS PO2 132 mmHG (61-120); BLOOD GAS TOTAL HGB 12.2 G/DL (12.0-16.0); CRITICAL VALUE NO; LITER FLOW 2 L/M; OXYGEN DEVICE NASAL CANNULA; TEMP CORR TO 98.6
[2016-08-26 22:28] LABS: DRAW SITE LT FOOT; NUMBER OF ARTERIAL PUNCTURES 1; STAT YES
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
[2016-08-26] MEDS ORDERED: ONDANSETRON HCL 4 MG/2 ML VIAL IVP PRN (23:15)
[2016-08-26] MEDS ORDERED: BISACODYL 10 MG SUPP RECTAL PRN (23:15)
[2016-08-26] MEDS ORDERED: SODIUM CHLORIDE 0.9% FLUSH 10 ML FLUSH IV FLUSH PRN (23:15)
[2016-08-26] MEDS ORDERED: RESP: ALBUTEROL 2.5 MG/IPRATROPIUM 0.5 MG NEB (PRN) NEB (23:15)
[2016-08-26 23:21] LABS: AMPHETAMINE, URINE NEG (NEG); BARBITURATES, URINE NEG (NEG); COCAINE, URINE NEG (NEG)
[2016-08-26] MEDS: SODIUM CHLOR 0.9% 1000 ML INJ 1,000 ML IV SCH (23:56)
[2016-08-27 00:50] VITALS: BP 126/82; PULSE 85; RESP 18; TEMP 98.3; O2SAT 93
[2016-08-27 05:02] VITALS: BP 127/71; PULSE 84; RESP 13; TEMP 98; O2SAT 95
[2016-08-27] MEDS: PHENYTOIN SODIUM 100 MG CAP PO SCH ×3 (06:19→22:42)
[2016-08-27 06:46] LABS: AUTOMATED NEUTROPHIL # 2.1 TH/MM3 (1.8-7.7); BASOPHIL % 0.4 % (0.0-2.0); EOSINOPHIL # 0.2 TH/MM3 (0-0.4); EOSINOPHIL % 5.2 % (0.0-4.0); HEMATOCRIT 35.4 % (35.0-46.0); HEMO FLAGS DIFF FINAL; LYMPH % 40.4 % (9.0-44.0); LYMPHOCYTE # 1.9 TH/MM3 (1.0-4.8); MEAN CELL VOLUME 91.5 FL (80.0-100.0); MEAN CORPUSCULAR HEMOGLOBIN 30.3 PG (27.0-34.0); MEAN CORPUSCULAR HGB CONC 33.1 % (32.0-36.0); MONO % 9.2 % (0.0-8.0); NEUT % 44.8 % (16.0-70.0); PLATELET COUNT 206 TH/MM3 (150-450); RED BLOOD COUNT 3.87 MIL/MM3 (4.00-5.30); RED CELL DISTRIBUTION WIDTH 13.2 % (11.6-17.2); WHITE BLOOD COUNT 4.8 TH/MM3 (4.0-11.0)
[2016-08-27 07:06] LABS: ALKALINE PHOSPHATASE 92 U/L (45-117); ALT (GPT) 24 U/L (10-53); ANION GAP 8 MEQ/L (5-15); AST (GOT) 34 U/L (15-37); BICARBONATE 23.6 MEQ/L (21.0-32.0); BLOOD UREA NITROGEN 8 MG/DL (7-18); CHLORIDE 114 MEQ/L (98-107); GLOMERULAR FILTRATION RATE 129 ML/MIN (>89); POTASSIUM 3.7 MEQ/L (3.5-5.1); SODIUM (NA) 146 MEQ/L (136-145); TOTAL BILIRUBIN ADULT 0.3 MG/DL (0.2-1.0)
[2016-08-27] MEDS: SODIUM CHLORIDE 0.9% FLUSH 10 ML FLUSH IV FLUSH SCH ×2 (09:00→22:42)
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
[2016-08-27] MEDS ORDERED: HALOPERIDOL LACTATE 5 MG/ML AMP IM PRN (09:30)
[2016-08-27] MEDS ORDERED: LORazepam 2 MG/ML VIAL IV PUSH PRN ×4 (09:30)
[2016-08-27] MEDS ORDERED: FLUMAZENIL 0.5 MG/5 ML VIAL IV PUSH PRN (09:30)
[2016-08-27] MEDS: levETIRAcetam 500 MG TAB PO SCH ×2 (09:48→22:42)
[2016-08-27] MEDS: FOLIC ACID 1 MG TAB PO SCH (09:48)
[2016-08-27] MEDS: THIAMINE HCL 100 MG TAB PO SCH (09:48)
[2016-08-27] MEDS: SODIUM CHLOR 0.9% 1000 ML INJ 1,000 ML IV SCH (09:49)
[2016-08-27] MEDS: LORazepam 2 MG/ML VIAL IV PUSH PRN ×3 (10:03→20:00)
[2016-08-27 10:05] VITALS: BP 135/88; PULSE 94; RESP 20
[2016-08-27 11:09] VITALS: RESP 16; O2SAT 95
[2016-08-27] MEDS: CLINDAMYCIN 150 MG CAP PO SCH ×3 (12:10→23:00)
[2016-08-27] MEDS: DEXTROSE 5% IN WATE 1000ML INJ 1,000 ML IV SCH ×2 (12:14→22:58)
[2016-08-27 16:12] VITALS: BP 136/87; PULSE 83; RESP 18; TEMP 98.8; O2SAT 94
[2016-08-27 19:57] VITALS: BP 130/86; PULSE 92; RESP 16; TEMP 97.8; O2SAT 100
[2016-08-27] MEDS: ACETAMINOPHEN 325 MG TAB PO PRN (22:59)
[2016-08-28] VITALS (7 sets, daily range): BP systolic 109–128; BP diastolic 74–81; PULSE 68–103; RESP 18–20; TEMP 95.7–98.8; O2SAT 95–100
[2016-08-28] MEDS: PHENYTOIN SODIUM 100 MG CAP PO SCH ×3 (05:54→22:18)
[2016-08-28] MEDS: ACETAMINOPHEN 325 MG TAB PO PRN (05:54)
[2016-08-28] MEDS: CLINDAMYCIN 150 MG CAP PO SCH ×3 (05:54→18:23)
[2016-08-28 08:58] LABS: BICARBONATE 27.9 MEQ/L (21.0-32.0); POTASSIUM 3.5 MEQ/L (3.5-5.1)
[2016-08-28] MEDS: SODIUM CHLORIDE 0.9% FLUSH 10 ML FLUSH IV FLUSH SCH ×2 (09:00→21:00)
[2016-08-28] MEDS: levETIRAcetam 500 MG TAB PO SCH ×2 (09:56→22:18)
[2016-08-28] MEDS: FOLIC ACID 1 MG TAB PO SCH (09:57)
[2016-08-28] MEDS: THIAMINE HCL 100 MG TAB PO SCH (09:57)
[2016-08-28] MEDS: LORazepam 2 MG/ML VIAL IV PUSH PRN ×2 (10:20→20:08)
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
[2016-08-28] MEDS ORDERED: LORazepam 2 MG/ML VIAL IV PUSH ONE (21:00)
--- NOTE | 2016-08-28 22:36 | HHI.PR ---
Subjective Remarks Follow up for recurrent seizure. Patient had an episode of seizure today, stable after ativan. Currently denies any acute concerns. Denies any fever, chills. Objective Vitals Vital Signs Date Time Temp Pulse Resp B/P Pulse Ox O2 Delivery O2 Flow Rate FiO2 08/28/16 21:05 98.2 103 18 127/79 100 08/28/16 15:05 95.8 95 18 127/76 96 08/28/16 11:00 95.7 80 18 115/76 95 08/28/16 07:25 97.0 68 18 109/74 95 08/28/16 07:00 Nasal Cannula 2.00 08/28/16 05:53 Room Air 08/28/16 04:00 97.0 78 20 116/81 97 08/28/16 02:49 Nasal Cannula 2.00 08/28/16 00:02 98.8 78 18 128/78 98 08/28/16 00:00 97.9 77 18 120/79 96 I/O 08/27/16 08/27/16 08/27/16 08/28/16 08/28/16 08/28/16 07:00 15:00 23:00 07:00 15:00 23:00 Intake Total 500 ml 2503 ml 240 ml 240 ml Balance 500 ml 2503 ml 240 ml 240 ml Intake Oral 240 ml 240 ml 240 ml IV Total 500 ml 2263 ml # Voids 4 3 4 # Bowel Movements 1 Result Diagram: 08/27/16 0600 08/28/16 0639 Imaging Last Impressions Head CT 08/26/16 0000 Signed Impressions: Service Date/Time: Friday, August 26, 2016 21:41 - CONCLUSION: 1. No acute intracranial abnormality seen. 2. Old right caudate head lacunar infarct. 3. Left maxillary sinus disease. Thor Barber MD Objective Remarks GENERAL: AOx3, NAD. SKIN: Warm and dry. HEAD: Normocephalic. EYES: No scleral icterus. No injection or drainage. NECK: Supple, trachea midline. No JVD or lymphadenopathy. CARDIOVASCULAR: Regular rate and rhythm without murmurs, gallops, or rubs. RESPIRATORY: Breath sounds equal bilaterally. No accessory muscle use. GASTROINTESTINAL: Abdomen soft, non-tender, nondistended. MUSCULOSKELETAL: No cyanosis, or edema. BACK: Nontender without obvious deformity. No CVA tenderness. Procedures None. A/P Problem List: (1) Seizures ICD Code: R56.9 Status: Acute (2) Alcohol intoxication ICD Code: F10.129 Status: Acute (3) Non-compliance ICD Code: Z91.19 Status: Acute (4) Cocaine abuse ICD Code: F14.10 Status: Acute Assessment and Plan 56-year-old female with a PMH of Alcohol Abuse and Seizure Disorder who is brought to the ER by EMS secondary to seizure activity. Per report, patient was escorted out of a local bar due to erratic behavior, while outside of the bar, patient was noted to have generalized tonic-clonic seizures, s/p 2mg IV Ativan. While in ER, had 2nd episode of seizure activity, s/p additional Ativan 2mg IV. Recent admit 08/23-08/26/16 for similar. +Cocaine, +Alcohol intoxication. S/p eval by Neurology, EEG normal, MRI 08/23/16 negative for acute findings, CT Head 08/24/16 negative for acute process. D/c'd home on Keppra 100mg po bid, Dilantin 100 po q8h and Clindamycin 300mg po q6h for hand cellulitis. D/c'd home on 08/26/16, brought back to ER same day. Recurrent Seizures: Failed Outpatient. Secondary to Noncompliance. Seizure x2, one witnessed by EMS, second seizure while in ER, s/p Ativan 2mg IV x2 doses. Recent admit 08/23-08/26/16 for same, s/p eval by Neurology, CT/MRI/EEG w/ no acute changes. D/c'd on Keppra 1000mg bid and Dilantin 100mg q8h. S/p Keppra 1gm IV in ER. -Continue Keppra 1gm q12h and Dilantin 100mg q8h. -Seizure Precautions -Ativan prn seizure - Neurology is following. - Start Librium 10mg TID. Non-Compliance: Not taking meds since discharge 08/26/16. Resumed home medications. Alcohol Intoxication: Alcohol Abuse w/ Acute Intoxication. Alcohol 108. Seizure Precautions, CIWA, MVT/Thiamine/Folate. Counseled again on cessation. Cocaine Abuse: h/o Cocaine Abuse, Urine Drug Screen 08/23/16 positive, however UDS today negative. Ativan prn if needed. Left Hand Cellulitis: diagnosed on last admission. Continue patient's Clinda 300mg q6h. Symptoms improving. DVT Prophylaxis: SCD/Teds. Fabienne Tanner DO Aug 28, 2016 22:36
--- NOTE | 2016-08-28 23:02 | RADRPT ---
EXAM DATE/TIME: 08/28/2016 22:49 [facility] COMPARISON: No previous studies available for comparison. INDICATIONS : Left shoulder pain, fell MEDICAL HISTORY : Hypertension. Hypercholesterolemia. Seizures. SURGICAL HISTORY : None. ENCOUNTER: Initial ACUITY: 3 days PAIN SCORE: 6/10 LOCATION: Left Shoulder FINDINGS: Multiple view examination of the left shoulder demonstrates no evidence of fracture or dislocation. The glenohumeral and acromioclavicular joints are maintained. Soft tissue swelling. There is normal range of motion between internal and external rotation. Bony mineralization is normal. CONCLUSION: Soft tissue swelling without acute fracture. Yousif Erickson MD on August 28, 2016 at 22:59 Board Certified Radiologist. This report was verified electronically.
--- NOTE | 2016-08-28 23:18 | RADRPT ---
EXAM DATE/TIME: 08/28/2016 22:51 [facility] COMPARISON: CT BRAIN W/O CONTRAST, August 26, 2016, 21:41. INDICATIONS : Altered mental status. RADIATION DOSE: 56.35 CTDIvol (mGy) MEDICAL HISTORY : Hypertension. Cardiovascular disease Seizures. SURGICAL HISTORY : None. ENCOUNTER: Subsequent ACUITY: 1 week PAIN SCALE: Non-responsive LOCATION: cranial TECHNIQUE: Multiple contiguous axial images were obtained of the head. Using automated exposure control and adj ustment of the mA and/or kV according to patient size, radiation dose was kept as low as reasonably a chievable to obtain optimal diagnostic quality images. FINDINGS: CEREBRUM: Old lacunar infarct right caudate head. The ventricles are normal for age. No evidence of midline sh ift, mass lesion, hemorrhage or acute infarction. No extra-axial fluid collections are seen. POSTERIOR FOSSA: The cerebellum and brainstem are intact. The 4th ventricle is midline. The cerebellopontine angle i s unremarkable. EXTRACRANIAL: The visualized portion of the orbits is intact. SKULL: The calvaria is intact. No evidence of skull fracture. CONCLUSION: 1. Remote lacunar infarct of the right caudate head. 2. No acute intracranial abnormality. Yousif Erickson MD on August 28, 2016 at 23:16 Board Certified Radiologist. This report was verified electronically.
[2016-08-29] VITALS (8 sets, daily range): BP systolic 102–135; BP diastolic 66–89; PULSE 65–108; RESP 18–19; TEMP 95.4–98; O2SAT 96–100
[2016-08-29] MEDS: CLINDAMYCIN 150 MG CAP PO SCH ×5 (01:11→22:54)
[2016-08-29] MEDS: PHENYTOIN SODIUM 100 MG CAP PO SCH ×3 (05:36→21:24)
[2016-08-29] MEDS: SODIUM CHLORIDE 0.9% FLUSH 10 ML FLUSH IV FLUSH SCH ×2 (08:03→21:25)
[2016-08-29] MEDS: DEXTROSE 5% IN WATE 1000ML INJ 1,000 ML IV SCH ×3 (08:03→21:30)
[2016-08-29] MEDS: FOLIC ACID 1 MG TAB PO SCH (08:05)
[2016-08-29] MEDS: THIAMINE HCL 100 MG TAB PO SCH (08:05)
[2016-08-29] MEDS: levETIRAcetam 500 MG TAB PO SCH ×2 (08:06→21:24)
[2016-08-29] MEDS: LORazepam 2 MG/ML VIAL IV PUSH PRN ×3 (09:52→17:45)
[2016-08-29] MEDS: chlordiazePOXIDE 25 MG CAP PO SCH ×2 (11:52→17:08)
[2016-08-29] MEDS: LORazepam 2 MG TAB PO PRN (22:54)
--- NOTE | 2016-08-29 23:41 | HHI.PR ---
Subjective Remarks Follow up for recurrent seizure, alcohol abuse. Patient is doing well. She had an episode of seizure activity in the morning and again in the afternoon. Otherwise, patient denies any chest pain, fever, chills. Objective Vitals Vital Signs Date Time Temp Pulse Resp B/P Pulse Ox O2 Delivery O2 Flow Rate FiO2 08/29/16 20:00 97.1 65 18 104/68 98 08/29/16 17:40 97.9 93 19 135/87 100 08/29/16 15:00 96.1 86 19 105/66 97 08/29/16 11:15 95.4 90 19 110/78 96 08/29/16 10:06 92 118/80 97 08/29/16 07:15 96.2 87 19 102/74 98 08/29/16 07:00 Room Air 08/29/16 04:00 98.0 85 18 124/89 97 08/29/16 02:15 Nasal Cannula 2.00 08/29/16 00:00 97.0 108 18 133/81 99 I/O 08/28/16 08/28/16 08/28/16 08/29/16 08/29/16 08/29/16 07:00 15:00 23:00 07:00 15:00 23:00 Intake Total 2503 ml 240 ml 480 ml 720 ml Balance 2503 ml 240 ml 480 ml 720 ml Intake Oral 240 ml 240 ml 480 ml 720 ml IV Total 2263 ml # Voids 4 3 7 4 3 # Bowel Movements 1 0 Result Diagram: 08/27/16 0600 08/28/16 0639 Imaging Last Impressions Shoulder X-Ray 08/28/16 0000 Signed Impressions: Service Date/Time: Sunday, August 28, 2016 22:49 - CONCLUSION: Soft tissue swelling without acute fracture. Yousif Erickson MD Head CT 08/28/16 0000 Signed Impressions: Service Date/Time: Sunday, August 28, 2016 22:51 - CONCLUSION: 1. Remote lacunar infarct of the right caudate head. 2. No acute intracranial abnormality. Yousif Erickson MD Objective Remarks GENERAL: AOx3, NAD. SKIN: Warm and dry. HEAD: Normocephalic. EYES: No scleral icterus. No injection or drainage. NECK: Supple, trachea midline. No JVD or lymphadenopathy. CARDIOVASCULAR: Regular rate and rhythm without murmurs, gallops, or rubs. RESPIRATORY: Breath sounds equal bilaterally. No accessory muscle use. GASTROINTESTINAL: Abdomen soft, non-tender, nondistended. MUSCULOSKELETAL: No cyanosis, or edema. BACK: Nontender without obvious deformity. No CVA tenderness. Procedures None. A/P Problem List: (1) Seizures ICD Code: R56.9 Status: Acute (2) Alcohol intoxication ICD Code: F10.129 Status: Acute (3) Non-compliance ICD Code: Z91.19 Status: Acute (4) Cocaine abuse ICD Code: F14.10 Status: Acute Assessment and Plan 56-year-old female with a PMH of Alcohol Abuse and Seizure Disorder who is brought to the ER by EMS secondary to seizure activity. Per report, patient was escorted out of a local bar due to erratic behavior, while outside of the bar, patient was noted to have generalized tonic-clonic seizures, s/p 2mg IV Ativan. While in ER, had 2nd episode of seizure activity, s/p additional Ativan 2mg IV. Recent admit 08/23-08/26/16 for similar. +Cocaine, +Alcohol intoxication. S/p eval by Neurology, EEG normal, MRI 08/23/16 negative for acute findings, CT Head 08/24/16 negative for acute process. D/c'd home on Keppra 100mg po bid, Dilantin 100 po q8h and Clindamycin 300mg po q6h for hand cellulitis. D/c'd home on 08/26/16, brought back to ER same day. Recurrent Seizures: Failed Outpatient. Secondary to Noncompliance. Seizure x2, one witnessed by EMS, second seizure while in ER, s/p Ativan 2mg IV x2 doses. Recent admit 08/23-08/26/16 for same, s/p eval by Neurology, CT/MRI/EEG w/ no acute changes. D/c'd on Keppra 1000mg bid and Dilantin 100mg q8h. S/p Keppra 1gm IV in ER. -Continue Keppra 1gm q12h and Dilantin 100mg q8h. -Seizure Precautions -Ativan prn seizure - Neurology is following. - Increase librium from 25mg TID to 50mg TID. Non-Compliance: Not taking meds since discharge 08/26/16. Resumed home medications. Alcohol Intoxication: Alcohol Abuse w/ Acute Intoxication. Alcohol 108. Seizure Precautions, CIWA, MVT/Thiamine/Folate. Counseled again on cessation. Cocaine Abuse: h/o Cocaine Abuse, Urine Drug Screen 08/23/16 positive, however UDS today negative. Ativan prn if needed. Left Hand Cellulitis: diagnosed on last admission. Continue patient's Clinda 300mg q6h. Symptoms improving. Full code. DVT Prophylaxis: SCD/Teds. Fabienne Tanner DO Aug 29, 2016 23:41
[2016-08-30] VITALS (8 sets, daily range): BP systolic 98–114; BP diastolic 62–78; PULSE 62–92; RESP 16–20; TEMP 95.3–98.1; O2SAT 95–99
[2016-08-30] MEDS: LORazepam 2 MG/ML VIAL IV PUSH PRN (04:51)
[2016-08-30] MEDS: CLINDAMYCIN 150 MG CAP PO SCH ×4 (05:37→23:03)
[2016-08-30] MEDS: PHENYTOIN SODIUM 100 MG CAP PO SCH ×3 (05:37→21:30)
[2016-08-30] MEDS: ACETAMINOPHEN 325 MG TAB PO PRN (06:34)
[2016-08-30] MEDS: SODIUM CHLORIDE 0.9% FLUSH 10 ML FLUSH IV FLUSH SCH ×2 (09:00→21:29)
[2016-08-30] MEDS: FOLIC ACID 1 MG TAB PO SCH (09:07)
[2016-08-30] MEDS: THIAMINE HCL 100 MG TAB PO SCH (09:07)
[2016-08-30] MEDS: levETIRAcetam 500 MG TAB PO SCH ×2 (09:08→21:30)
[2016-08-30] MEDS: chlordiazePOXIDE 25 MG CAP PO SCH ×3 (09:08→17:51)
[2016-08-30] MEDS: DEXTROSE 5% IN WATE 1000ML INJ 1,000 ML IV SCH ×2 (09:11→22:25)
[2016-08-30] MEDS: LORazepam 2 MG TAB PO PRN ×3 (12:42→21:35)
--- NOTE | 2016-08-30 17:55 | HHI.PR ---
Subjective Remarks Follow up for recurrent seizure, alcohol abuse. Ms. Sun is currently doing well. However, she had another seizure earlier this morning and she was found on the floor. CT head was done which did not show anything acute. Currently, patient requests to out for fresh air and smoke. I have informed that we cannot let her get off the floor. If she wants to go, she has to go against medical advice. Objective Vitals Vital Signs Date Time Temp Pulse Resp B/P Pulse Ox O2 Delivery O2 Flow Rate FiO2 08/30/16 16:00 95.4 79 20 98/66 97 08/30/16 15:38 2 08/30/16 12:00 95.3 78 20 103/71 95 08/30/16 08:00 97.1 77 20 105/65 97 08/30/16 07:32 18 08/30/16 05:45 97.6 78 18 101/62 96 08/30/16 05:00 97.2 88 18 111/66 98 08/30/16 04:45 97.7 92 16 114/78 96 08/30/16 00:00 98.1 62 18 101/73 98 08/29/16 20:00 97.1 65 18 104/68 98 I/O 08/29/16 08/29/16 08/29/16 08/30/16 08/30/16 08/30/16 07:00 15:00 23:00 07:00 15:00 23:00 Intake Total 720 ml Balance 720 ml Intake Oral 720 ml # Voids 4 3 4 4 # Bowel Movements 0 1 Result Diagram: 08/27/16 0600 08/28/16 0639 Imaging Last Impressions Shoulder X-Ray 08/28/16 0000 Signed Impressions: Service Date/Time: Sunday, August 28, 2016 22:49 - CONCLUSION: Soft tissue swelling without acute fracture. Yousif Erickson MD Head CT 08/28/16 0000 Signed Impressions: Service Date/Time: Sunday, August 28, 2016 22:51 - CONCLUSION: 1. Remote lacunar infarct of the right caudate head. 2. No acute intracranial abnormality. Yousif Erickson MD Objective Remarks GENERAL: AOx3, NAD. SKIN: Warm and dry. HEAD: Normocephalic. EYES: No scleral icterus. No injection or drainage. NECK: Supple, trachea midline. No JVD or lymphadenopathy. CARDIOVASCULAR: Regular rate and rhythm without murmurs, gallops, or rubs. RESPIRATORY: Breath sounds equal bilaterally. No accessory muscle use. GASTROINTESTINAL: Abdomen soft, non-tender, nondistended. MUSCULOSKELETAL: No cyanosis, or edema. BACK: Nontender without obvious deformity. No CVA tenderness. Procedures None. A/P Problem List: (1) Seizures ICD Code: R56.9 Status: Acute (2) Alcohol intoxication ICD Code: F10.129 Status: Acute (3) Non-compliance ICD Code: Z91.19 Status: Acute (4) Cocaine abuse ICD Code: F14.10 Status: Acute Assessment and Plan 56-year-old female with a PMH of Alcohol Abuse and Seizure Disorder who is brought to the ER by EMS secondary to seizure activity. Per report, patient was escorted out of a local bar due to erratic behavior, while outside of the bar, patient was noted to have generalized tonic-clonic seizures, s/p 2mg IV Ativan. While in ER, had 2nd episode of seizure activity, s/p additional Ativan 2mg IV. Recent admit 08/23-08/26/16 for similar. +Cocaine, +Alcohol intoxication. S/p eval by Neurology, EEG normal, MRI 08/23/16 negative for acute findings, CT Head 08/24/16 negative for acute process. D/c'd home on Keppra 100mg po bid, Dilantin 100 po q8h and Clindamycin 300mg po q6h for hand cellulitis. D/c'd home on 08/26/16, brought back to ER same day. Recurrent Seizures: Failed Outpatient. Secondary to Noncompliance. Seizure x2, one witnessed by EMS, second seizure while in ER, s/p Ativan 2mg IV x2 doses. Recent admit 08/23-08/26/16 for same, s/p eval by Neurology, CT/MRI/EEG w/ no acute changes. D/c'd on Keppra 1000mg bid and Dilantin 100mg q8h. S/p Keppra 1gm IV in ER. -Continue Keppra 1gm q12h and Dilantin 100mg q8h. -Seizure Precautions -Ativan prn seizure - Neurology is following. - Increase librium from 25mg TID to 50mg TID. Non-Compliance: Not taking meds since discharge 08/26/16. Resumed home medications. Alcohol Intoxication: Alcohol Abuse w/ Acute Intoxication. Alcohol 108. Seizure Precautions, CIWA, MVT/Thiamine/Folate. Counseled again on cessation. Cocaine Abuse: h/o Cocaine Abuse, Urine Drug Screen 08/23/16 positive, however UDS today negative. Ativan prn if needed. Left Hand Cellulitis: diagnosed on last admission. Continue patient's Clinda 300mg q6h. Symptoms improving. Full code. DVT Prophylaxis: SCD/Teds. Discharge plan: If she has no further episodes of seizure, we will discharge patient home on 08/31/2016. Fabienne Tanner DO Aug 30, 2016 17:55
[2016-08-30] MEDS: LORazepam 1 MG TAB PO PRN (23:04)
[2016-08-31] VITALS: BP 92/53; PULSE 77; RESP 18; TEMP 95.7; O2SAT 97
[2016-08-31] MEDS: LORazepam 1 MG TAB PO PRN ×3 (03:05→22:55)
[2016-08-31 04:38] VITALS: BP 103/65; PULSE 73; RESP 18; TEMP 96; O2SAT 96
[2016-08-31] MEDS: PHENYTOIN SODIUM 100 MG CAP PO SCH ×3 (06:55→21:19)
[2016-08-31] MEDS: CLINDAMYCIN 150 MG CAP PO SCH ×3 (06:55→17:34)
[2016-08-31] MEDS: levETIRAcetam 500 MG TAB PO SCH ×2 (08:20→21:19)
[2016-08-31] MEDS: THIAMINE HCL 100 MG TAB PO SCH (08:20)
[2016-08-31] MEDS: FOLIC ACID 1 MG TAB PO SCH (08:20)
[2016-08-31] MEDS: chlordiazePOXIDE 25 MG CAP PO SCH ×3 (08:20→17:34)
[2016-08-31] MEDS: SODIUM CHLORIDE 0.9% FLUSH 10 ML FLUSH IV FLUSH SCH ×2 (08:21→21:20)
[2016-08-31 09:04] VITALS: BP 81/57; PULSE 79; RESP 16; TEMP 96.8; O2SAT 96
--- NOTE | 2016-08-31 10:07 | HHI.PR ---
Subjective Remarks Follow up for recurrent seizures. Patient seen with RN at bedside. No further seizures overnight. Patient ambulatory. Blood pressure low this morning, 81/57. The patient denies any lightheadedness or dizziness. Discussed again alcohol cessation. Objective Vitals Vital Signs Date Time Temp Pulse Resp B/P Pulse Ox O2 Delivery O2 Flow Rate FiO2 08/31/16 09:04 96.8 79 16 81/57 96 08/31/16 07:43 Room Air 08/31/16 04:38 96.0 73 18 103/65 96 08/31/16 04:00 16 08/31/16 00:00 95.7 77 18 92/53 97 08/30/16 20:00 96.1 88 18 109/74 99 08/30/16 18:06 Room Air 08/30/16 16:00 95.4 79 20 98/66 97 08/30/16 15:38 2 08/30/16 12:00 95.3 78 20 103/71 95 I/O 08/30/16 08/30/16 08/30/16 08/31/16 08/31/16 08/31/16 07:00 15:00 23:00 07:00 15:00 23:00 Intake Total 480 ml 344 ml Balance 480 ml 344 ml Intake Oral 480 ml IV Total 344 ml # Voids 4 4 3 2 # Bowel Movements 1 0 0 Result Diagram: 08/27/16 0600 08/28/16 0639 Imaging Last Impressions Shoulder X-Ray 08/28/16 0000 Signed Impressions: Service Date/Time: Sunday, August 28, 2016 22:49 - CONCLUSION: Soft tissue swelling without acute fracture. Yousif Erickson MD Head CT 08/28/16 0000 Signed Impressions: Service Date/Time: Sunday, August 28, 2016 22:51 - CONCLUSION: 1. Remote lacunar infarct of the right caudate head. 2. No acute intracranial abnormality. Yousif Erickson MD Objective Remarks GENERAL: Well-nourished, well-developed middle aged female patient in [facility]. SKIN: Warm and dry. No rash. HEENT: Normocephalic. Atraumatic.Pupils equal and round. Mucous membranes pink and moist. NECK: Supple. Trachea midline. CARDIOVASCULAR: Regular rate and rhythm. S1, S2 noted. No murmur appreciated. RESPIRATORY: No accessory muscle use. Clear to auscultation. Breath sounds equal bilaterally. GASTROINTESTINAL: Abdomen soft, non-tender, nondistended. Normoactive bowel sounds x4. MUSCULOSKELETAL: No obvious deformities. Extremities without clubbing, cyanosis , or edema. NEUROLOGICAL: Awake and alert. No obvious cranial nerve deficits. Motor grossly within normal limits. Normal speech. PSYCHIATRIC: Appropriate mood and affect; insight and judgment normal. Procedures None. Medications and IVs Current Medications Medications (Trade) Dose Ordered Sig/Jesus Route Start Time Stop Time Status Last Admin (Ativan Inj) 1 mg Q5M PRN IV PUSH 08/26/16 23:15 08/30/16 04:51 (NS Flush) 2 ml UNSCH PRN IV FLUSH 08/26/16 23:15 (NS Flush) 2 ml BID IV FLUSH 08/27/16 09:00 08/31/16 08:21 (Zofran Inj) 4 mg Q6H PRN IVP 08/26/16 23:15 (Dulcolax Supp) 10 mg DAILY PRN RECTAL 08/26/16 23:15 (Tylenol) 650 mg Q6H PRN PO 08/26/16 23:15 08/30/16 06:34 (Roxicodone) 10 mg Q4H PRN PO 08/26/16 23:15 08/31/16 09:33 (Roxicodone) 5 mg Q4H PRN PO 08/26/16 23:15 08/31/16 03:05 (Folate) 1 mg DAILY PO 08/27/16 09:00 08/31/16 08:20 (Keppra) 1,000 mg BID PO 08/27/16 09:00 08/31/16 08:20 (Dilantin) 100 mg Q8HR PO 08/27/16 06:00 08/31/16 06:55 (Vitamin B1) 100 mg DAILY PO 08/27/16 09:00 08/31/16 08:20 (Romazicon Inj) 0.2 mg Q1M PRN IV PUSH 08/27/16 09:30 (Ativan) 1 mg Q4H PRN PO 08/27/16 09:30 08/31/16 03:05 (Ativan Inj) 1 mg Q4H PRN IV PUSH 08/27/16 09:30 (Ativan) 2 mg Q2H PRN PO 08/27/16 09:30 08/30/16 21:35 (Ativan Inj) 2 mg Q2H PRN IV PUSH 08/27/16 09:30 (Ativan Inj) 2 mg Q1H PRN IV PUSH 08/27/16 09:30 (Ativan Inj) 2 mg Q15M PRN IV PUSH 08/27/16 09:30 Haloperidol Lactate 2 mg 2 mg Q15M PRN IM 08/27/16 09:30 (D5W 1000 ml Inj) 1,000 ml @ 84 mls/hr [id number] IV 08/27/16 11:00 08/30/16 09:11 (Cleocin) 300 mg Q6HR PO 08/27/16 12:00 08/31/16 06:55 (Librium) 50 mg TID PO 08/30/16 09:00 08/31/16 08:20 Urinary Catheter: No Vascular Central Line Catheter: No A/P Problem List: (1) Seizures ICD Code: R56.9 Status: Acute (2) Alcohol intoxication ICD Code: F10.129 Status: Acute (3) Non-compliance ICD Code: Z91.19 Status: Acute (4) Cocaine abuse ICD Code: F14.10 Status: Acute Assessment and Plan 56-year-old female with a PMH of Alcohol Abuse and Seizure Disorder who is brought to the ER by EMS secondary to seizure activity. Per report, patient was escorted out of a local bar due to erratic behavior, while outside of the bar, patient was noted to have generalized tonic-clonic seizures, s/p 2mg IV Ativan. While in ER, had 2nd episode of seizure activity, s/p additional Ativan 2mg IV. Recent admit 08/23-08/26/16 for similar. +Cocaine, +Alcohol intoxication. S/p eval by Neurology, EEG normal, MRI 08/23/16 negative for acute findings, CT Head 08/24/16 negative for acute process. D/c'd home on Keppra 100mg po bid, Dilantin 100 po q8h and Clindamycin 300mg po q6h for hand cellulitis. D/c'd home on 08/26/16, brought back to ER same day. Recurrent Seizures: Failed Outpatient. Secondary to Noncompliance. Seizure x2, one witnessed by EMS, second seizure while in ER, s/p Ativan 2mg IV x2 doses. Recent admit 08/23-08/26/16 for same, s/p eval by Neurology, CT/MRI/EEG w/ no acute changes. D/c'd on Keppra 1000mg bid and Dilantin 100mg q8h. S/p Keppra 1gm IV in ER. -Continue Keppra 1gm q12h and Dilantin 100mg q8h. -Seizure Precautions -Ativan prn seizure -Neurology is following. -Increased librium from 25mg TID to 50mg TID however patient more drowsy today with hypotension, will decrease librium to 25mg tid. Hypotension: BP 80s/50s today. Suspect secondary to sedating medications including librium/ativan. -decreased librium dosing -give IV NS 500cc bolus -monitor blood pressure Non-Compliance: Not taking meds since discharge 08/26/16. Resumed home medications. Alcohol Intoxication: Alcohol Abuse w/ Acute Intoxication. Alcohol 108. Seizure Precautions, CIWA, MVT/Thiamine/Folate. Counseled again on cessation. Cocaine Abuse: h/o Cocaine Abuse, Urine Drug Screen 08/23/16 positive, however UDS today negative. Ativan prn if needed. Left Hand Cellulitis: diagnosed on last admission. Continue patient's Clinda 300mg q6h. Symptoms improving. Full code. DVT Prophylaxis: SCD/Teds. Discharge plan: If she has no further episodes of seizure and blood pressure improves, we will discharge patient home today. Written by Mara Patel, acting as scribe for Dr. Tanner on 08/31/16 at 10:01. All or portions of this note were transcribed by scribe ANGEL Taylor. I , Dr. Marco Antonio Tanner personally performed the history, physical exam, and medical decision making; and confirmed the accuracy of the information in the transcribed note. Authenticated by Dr. Marco Antonio Tanner on 08/31/16 at 23:49. Mara Patel PA-C Aug 31, 2016 10:07 Fabienne Tanner DO Aug 31, 2016 23:49
[2016-08-31] MEDS: SODIUM CHLORID 0.9% 500 ML INJ 500 ML IV ONE ×2 (10:15→12:15)
[2016-08-31 13:08] VITALS: BP 106/58; PULSE 79; RESP 18; TEMP 97.2; O2SAT 99
[2016-08-31 16:58] VITALS: BP 115/73; PULSE 87; RESP 16; TEMP 96.9; O2SAT 96
[2016-08-31 20:00] VITALS: BP 108/65; PULSE 85; RESP 20; TEMP 95.8; O2SAT 100
[2016-09-01] MEDS: CLINDAMYCIN 150 MG CAP PO SCH ×2 (00:09→06:01)
[2016-09-01] MEDS: LORazepam 2 MG/ML VIAL IV PUSH PRN (01:10)
[2016-09-01 01:41] VITALS: BP 114/67; PULSE 85; RESP 20; TEMP 95.2; O2SAT 98
[2016-09-01] MEDS: LORazepam 1 MG TAB PO PRN (04:23)
[2016-09-01] MEDS: PHENYTOIN SODIUM 100 MG CAP PO SCH (06:01)
[2016-09-01 06:19] VITALS: BP 100/63; PULSE 80; RESP 18; TEMP 95.2; O2SAT 99
[2016-09-01] MEDS: chlordiazePOXIDE 25 MG CAP PO SCH (08:34)
[2016-09-01] MEDS: THIAMINE HCL 100 MG TAB PO SCH (08:34)
[2016-09-01] MEDS: levETIRAcetam 500 MG TAB PO SCH (08:34)
[2016-09-01] MEDS: FOLIC ACID 1 MG TAB PO SCH (08:34)
[2016-09-01] MEDS: SODIUM CHLORIDE 0.9% FLUSH 10 ML FLUSH IV FLUSH SCH (08:34)
[2016-09-01 08:52] VITALS: BP 110/68; PULSE 85; RESP 20; TEMP 96.3; O2SAT 100
[2016-09-01] MEDS ORDERED: CHLO25CA2 PO (09:37)
--- NOTE | 2016-09-01 23:17 | HHI.DS ---
Discharge Summary Admission Date Aug 27, 2016 at 20:34 Discharge Date: Sep 01, 2016 Admitting Diagnosis seizure (1) Seizures ICD Code: R56.9 Diagnosis: Principal (2) Alcohol intoxication ICD Code: F10.129 Diagnosis: Principal (3) Non-compliance ICD Code: Z91.19 (4) Cocaine abuse ICD Code: F14.10 Procedures None. Brief History - From Admission This is a 56-year-old female with a PMH of Alcohol Abuse and Seizure Disorder who is brought to the ER by EMS secondary to seizure activity. Per report, patient was escorted out of a local bar due to erratic behavior, while outside of the bar, patient was noted to have generalized tonic-clonic seizures, s/p 2mg IV Ativan. While in ER, had 2nd episode of seizure activity, s/p additional Ativan 2mg IV. Recent admit 08/23-08/26/16 for similar. +Cocaine, + Alcohol intoxication. S/p eval by Neurology, EEG normal, MRI 08/23/16 negative for acute findings, CT Head 08/24/16 negative for acute process. D/c'd home on Keppra 100mg po bid, Dilantin 100 po q8h and Clindamycin 300mg po q6h for UTI. D/c'd home on 08/26/16, brought back to ER same day. No further seizure activity. On arrival, BP 148/80, HR 100, O2 sat 97% on RA, Afebrile. CBC unremarkable. Chemistry essentially unremarkable. Urine Drug Screen positive for benzo. Alcohol 102. CBC/BMP: 08/28/16 0639 Imaging Last Impressions Shoulder X-Ray 08/28/16 0000 Signed Impressions: Service Date/Time: Sunday, August 28, 2016 22:49 - CONCLUSION: Soft tissue swelling without acute fracture. Yosuif Erickson MD Head CT 08/28/16 0000 Signed Impressions: Service Date/Time: Sunday, August 28, 2016 22:51 - CONCLUSION: 1. Remote lacunar infarct of the right caudate head. 2. No acute intracranial abnormality. Yousif Erickson MD PE at Discharge GENERAL: AOx3, NAD. SKIN: Warm and dry. HEAD: Normocephalic. EYES: No scleral icterus. No injection or drainage. NECK: Supple, trachea midline. No JVD or lymphadenopathy. CARDIOVASCULAR: Regular rate and rhythm without murmurs, gallops, or rubs. RESPIRATORY: Breath sounds equal bilaterally. No accessory muscle use. GASTROINTESTINAL: Abdomen soft, non-tender, nondistended. MUSCULOSKELETAL: No cyanosis, or edema. BACK: Nontender without obvious deformity. No CVA tenderness. Pt update on day of discharge Ms. Sun is doing well. No acute concerns. Ambulating well, tolerating diet well. Hospital Course 56-year-old female with a PMH of Alcohol Abuse and Seizure Disorder who is brought to the ER by EMS secondary to seizure activity. Per report, patient was escorted out of a local bar due to erratic behavior, while outside of the bar, patient was noted to have generalized tonic-clonic seizures, s/p 2mg IV Ativan. While in ER, had 2nd episode of seizure activity, s/p additional Ativan 2mg IV. Recent admit 08/23-08/26/16 for similar. +Cocaine, +Alcohol intoxication. S/p eval by Neurology, EEG normal, MRI 08/23/16 negative for acute findings, CT Head 08/24/16 negative for acute process. D/c'd home on Keppra 100mg po bid, Dilantin 100 po q8h and Clindamycin 300mg po q6h for hand cellulitis. D/c'd home on 08/26/16, brought back to ER same day. Recurrent Seizures: Failed Outpatient. Secondary to Noncompliance. Seizure x2, one witnessed by EMS, second seizure while in ER, s/p Ativan 2mg IV x2 doses. Recent admit 08/23-08/26/16 for same, s/p eval by Neurology, CT/MRI/EEG w/ no acute changes. D/c'd on Keppra 1000mg bid and Dilantin 100mg q8h. S/p Keppra 1gm IV in ER. -Continue Keppra 1gm q12h and Dilantin 100mg q8h. -Seizure Precautions -Ativan prn seizure -Neurology is following. - Continue Librium on discharge. Patient has Librium from previous admission. Will continue prev rx. Non-Compliance: Not taking meds since discharge 08/26/16. Resumed home medications. Alcohol Intoxication: Alcohol Abuse w/ Acute Intoxication. Alcohol 108. Seizure Precautions, CIWA, MVT/Thiamine/Folate. Counseled again on cessation. Patient was heavily counselled on multiple occasion to abstain completely from alcohol. Patient promises not to drink alcohol. She understands the consequences of drinking alcohol. Cocaine Abuse: h/o Cocaine Abuse, Urine Drug Screen 08/23/16 positive, however UDS this admission was negative. Left Hand Cellulitis: diagnosed on last admission. Received Clindamycin. I have counselled patient multiple times regarding alcohol abuse as well as other substance abuse. Patient appears to be motivated to quit substance abuse. She wants to go back [facility] her [employer] and sing there. I encouraged her to follow up with [facility] (with blue card) and if needed, PCP can refer to other specialists including Neurology. Pt Condition on Discharge: Good Discharge Disposition: Discharge Home Discharge Time: <= 30 minutes Discharge Instructions DIET: Follow Instructions for: As Tolerated, No Restrictions Activities you can perform: Regular-No Restrictions Other Activity Instructions: Please refrain from alcohol use. Follow up Referrals: Neurology - 1 Week PCP Follow-up - 1 Week Continued Medications: Albuterol 18 GM Inh (Ventolin Hfa 18 GM Inh) 90 Mcg/Act Aer 2 PUFF INH Q4H PRN SHORTNESS OF BREATH #1 Ref 0 INHALER Folic Acid (Folate) 1 Mg Tab 1 MG PO DAILY Nutritional Supplement #30 Ref 0 TAB Levetiracetam (Keppra) 1,000 Mg Tab 1000 MG PO BID Control Seizures #60 Ref 0 TAB Phenytoin Extended (Dilantin) 100 Mg Cap 100 MG PO Q8HR Seizure Control #90 CAP Thiamine (Vitamin B-1) 100 Mg Tab 100 MG PO DAILY vitamin supp #30 TAB Discontinued Medications: Clindamycin (Cleocin) 150 Mg Cap 300 MG PO Q6HR Infection #20 CAP Fabienne Tanner DO Sep 01, 2016 23:17
[2016-09-12] MEDS ORDERED: CLINPOW PO (15:58)
[2016-09-12] MEDS ORDERED: KEPP10002 PO (16:09)
[2016-09-12] MEDS ORDERED: DILA100C PO (16:09)
[2016-09-12] MEDS ORDERED: VENTAER INH (16:12)
[2016-11-10] MEDS ORDERED: QUET-88 PO (16:00)
[2016-11-10] MEDS ORDERED: AMIT50TA3 PO (16:00)
[2016-11-10] MEDS ORDERED: HYDR50CA PO (16:00)
[2016-11-10] MEDS ORDERED: OXCA300T PO (16:00)
[2016-11-10] MEDS ORDERED: GABA300C5 PO (16:37)
== END 2016-09-01 10:26 | disposition home or self-care (01) | DRG 101 ==
LOC: NEPC 20:54 → NEDA 23:02 → NEPGCP 08-27 00:40 → OBSVTOIN 08-27 20:34 → N05B 08-28 01:16
PROVIDERS: ADMIT Hospitalist; ATTEND Hospitalist
DX: G40.409 Other generalized epilepsy and epileptic syndromes, not intractable, without status epilepticus (principal); N39.0 Urinary tract infection, site not specified; L03.114 Cellulitis of left upper limb; F10.129 Alcohol abuse with intoxication, unspecified; Y90.5 Blood alcohol level of 100-119 mg/100 ml; F17.200 Nicotine dependence, unspecified, uncomplicated; F14.10 Cocaine abuse, uncomplicated; Z91.19 Patient's noncompliance with other medical treatment and regimen; Z87.820 Personal history of traumatic brain injury
CPT/HCPCS: 36600; 70450; 73030; 80048; 80053; 80185; 80307; 82805; 83735; 85025; 87641; 96365; 96375; G0378; J1953; J2060; J7030; J7040; J7070

== ENCOUNTER 2016-09-14 11:20 | Observation (INO) | payer OTHER ==
[~2016-09-14] VITALS: Ht 157.5 cm; Wt 50.0 kg
[~2016-09-14 11:20] MED LIST changes: -CHLO25CA2 PO; -CLIN150 PO; +CLINPOW PO; -NITR100C4 PO
[2016-09-14 11:21] VITALS: BP 137/74; PULSE 108; RESP 20; TEMP 97.8; O2SAT 99
[2016-09-14 11:52] VITALS: BP 127/82; PULSE 80; RESP 20; O2SAT 97
--- NOTE | 2016-09-14 12:26 | PD ---
HPI Chief Complaint: Chest Pain Time Seen by Provider: 12:22 Travel History International Travel<30 days: No Contact w/Intl Traveler<30days: No Traveled to known affect area: No History of Present Illness HPI 56-year-old female with a history of alcohol abuse, seizures, polysubstance abuse, hypertension presents to the emergency department for evaluation of chest pain. Patient states that she woke up in the middle the night with left- sided chest pain and bilateral leg cramping. States that this lasts for about 5 minutes at a time and spontaneously resolves. It's been intermittently recurring since developed the night. States that this morning she started having left arm pain associated with the chest pain. States that she does have some mild shortness of breath, lightheadedness and nausea as well. States she had 1 episode of nonbloody nonbilious emesis this morning. She denies fever, chills, diarrhea, abdominal pain, swelling of the extremities. Denies any recent travel or sick contacts. Denies any history of heart disease or OH. States that her father and mother both had heart disease but is unsure what kind , is not exactly sure if they had an OH. She does smoke cigarettes. Denies any alcohol or drug use since her most recent admission. No other complaints. PFSH Past Medical History Arthritis: Yes (lower back) Asthma: Yes Bipolar Disorder: Yes Anxiety: Yes Depression: No Cancer: No Cardiovascular Problems: Yes ("FLUID AROUND HEART") High Cholesterol: Yes COPD: Yes Cerebrovascular Accident: No Diminished Hearing: No Endocrine: No Gastrointestinal Disorders: No Genitourinary: No Headaches: Yes Hypertension: Yes Immune Disorder: No Implanted Vascular Access Dvce: No Insomnia: Yes Musculoskeletal: Yes Neurologic: Yes Psychiatric: Yes Reproductive: No Respiratory: Yes Immunizations Current: Yes Migraines: Yes Seizures: Yes (Onset age 16, denies knowledge as to etiology) ?: Not LMP: 08/21/2016, irregular Menopausal: Yes : 5 Para: 4 Miscarriage: 1 Ectopic : Yes Past Surgical History Surgical History: No Previous Surgery Abdominal Surgery: Yes (Exploratory, Trauma ) Cardiac Surgery: No Ear Surgery: No Endocrine Surgery: No Eye Surgery: No Genitourinary Surgery: No Gynecologic Surgery: No Oral Surgery: No Thoracic Surgery: No Other Surgery: Yes (ORIF R FOREARM/ R ANKLE, ABD'L EXPLOR. LAP) Social History Alcohol Use: No Tobacco Use: Yes Substance Use: No Allergies-Medications (Allergen,Severity, Reaction): Coded Allergies: Iodine (Verified Adverse Reaction, Severe, Anaphylaxis, 09/12/16) Penicillin (Verified Adverse Reaction, Severe, Anaphylaxis, 09/12/16) *MDRO Multi-Drug Resistant Organism (Verified Adverse Reaction, Unknown, Cleared, 09/12/16) MRSA PCR (nares) positive - 08/12/15 Cleared - MRSA PCR (nares) nagative on 11/11/15 & 08/24/16 Reported Meds & Prescriptions Reported Meds & Active Scripts Active Ventolin Hfa 18 GM Inh (Albuterol Sulfate) 90 Mcg/Act Aer 2 Puff INH Q4H PRN Dilantin (Phenytoin Extended) 100 Mg Cap 100 Mg PO Q8HR Keppra (Levetiracetam) 1,000 Mg Tab 1,000 Mg PO BID Folate (Folic Acid) 1 Mg Tab 1 Mg PO DAILY Vitamin B-1 (Thiamine HCl) 100 Mg Tab 100 Mg PO DAILY Reported Clindamycin HCl (Clindamycin HCl (Bulk)) 1 Pow Pow 300 Mg PO Q6HR Review of Systems Except as stated in HPI: all other systems reviewed are Neg Physical Exam Narrative GENERAL: Well-nourished and well-developed female patient in no acute distress who is nontoxic appearing. SKIN: Warm and dry. HEAD: Normocephalic and atraumatic. EYES: No injection, drainage, or hyphema noted. PERRLA. EOMI. ENT: No nasal drainage noted. Oropharynx is clear. NECK: Supple and the trachea is midline. CARDIOVASCULAR: Regular rate and rhythm. RESPIRATORY: Breath sounds are equal bilaterally with no accessory muscle use, wheezing, rhonchi, or crackles. GASTROINTESTINAL: Abdomen is soft, non-tender, and nondistended. MUSCULOSKELETAL: No obvious deformities, swelling, cyanosis, or ecchymosis is present throughout the upper and lower extremities. Patient has full range of motion without any signs of neurovascular compromise. NEUROLOGICAL: Awake, alert, and oriented. Normal speech and gait. Cranial nerves are grossly intact. Data Data Last Documented VS Vital Signs Date Time Temp Pulse Resp B/P Pulse Ox O2 Delivery O2 Flow Rate FiO2 09/14/16 11:52 80 20 127/82 97 09/14/16 11:34 Room Air 09/14/16 11:21 97.8 Orders Electrocardiogram (09/14/16 12:18) Ckmb (Isoenzyme) Profile (09/14/16 12:18) Complete Blood Count With Diff (09/14/16 12:18) Magnesium (Mg) (09/14/16 12:18) Prothrombin Time / Inr (Pt) (09/14/16 12:18) Act Partial Throm Time (Ptt) (09/14/16 12:18) Troponin I (09/14/16 12:18) Lipase (09/14/16 12:18) Chest, Single Ap (09/14/16 12:18) Ecg Monitoring (09/14/16 12:18) Bilateral Bp Monitoring (09/14/16 12:18) Iv Access Insert/Monitor (09/14/16 12:18) Oximetry (09/14/16 12:18) Aspirin Chew (Aspirin Chew) (09/14/16 12:30) Sodium Chloride 0.9% Flush (Ns Flush) (09/14/16 12:30) Comprehensive Metabolic Panel (09/14/16 12:18) Drug Screen, Random Urine (09/14/16 12:26) Alcohol (Ethanol) (09/14/16 12:26) CKMB (09/14/16 12:10) CKMB% (09/14/16 12:10) Admit Order (Ed Use Only) (09/14/16 13:31) Labs Laboratory Tests Test 09/14/16 09/14/16 00:00 12:10 Urine Opiates Screen NEG Urine Barbiturates Screen NEG Urine Amphetamines Screen NEG Urine Benzodiazepines Screen NEG Urine Cocaine Screen NEG Urine Cannabinoids Screen NEG White Blood Count 6.5 TH/MM3 Red Blood Count 4.46 MIL/MM3 Hemoglobin 13.8 GM/DL Hematocrit 40.4 % Mean Corpuscular Volume 90.6 FL Mean Corpuscular Hemoglobin 30.9 PG Mean Corpuscular Hemoglobin 34.1 % Concent Red Cell Distribution Width 13.1 % Platelet Count 292 TH/MM3 Mean Platelet Volume 6.9 FL Neutrophils (%) (Auto) 48.7 % Lymphocytes (%) (Auto) 38.1 % Monocytes (%) (Auto) 8.1 % Eosinophils (%) (Auto) 4.3 % Basophils (%) (Auto) 0.8 % Neutrophils # (Auto) 3.2 TH/MM3 Lymphocytes # (Auto) 2.5 TH/MM3 Monocytes # (Auto) 0.5 TH/MM3 Eosinophils # (Auto) 0.3 TH/MM3 Basophils # (Auto) 0.0 TH/MM3 CBC Comment DIFF FINAL Differential Comment Prothrombin Time 10.2 SEC Prothromb Time International 0.9 RATIO Ratio Activated Partial 25.7 SEC Thromboplast Time Sodium Level 138 MEQ/L Potassium Level 4.2 MEQ/L Chloride Level 105 MEQ/L Carbon Dioxide Level 25.6 MEQ/L Anion Gap 7 MEQ/L Blood Urea Nitrogen 10 MG/DL Creatinine 0.84 MG/DL Estimat Glomerular Filtration 71 ML/MIN Rate Random Glucose 124 MG/DL Calcium Level 8.9 MG/DL Magnesium Level 2.1 MG/DL Total Bilirubin 0.3 MG/DL Aspartate Amino Transf 21 U/L (AST/SGOT) Alanine Aminotransferase 17 U/L (ALT/SGPT) Alkaline Phosphatase 118 U/L Total Creatine Kinase 110 U/L Creatine Kinase MB 1.4 NG/ML Troponin I LESS THAN 0.02 NG/ML Total Protein 7.6 GM/DL Albumin 3.7 GM/DL Lipase 151 U/L Ethyl Alcohol Level LESS THAN 3 MG/DL MDM Medical Decision Making Medical Screen Exam Complete: Yes Emergency Medical Condition: Yes Differential Diagnosis Pleurisy versus electrolyte abnormality versus dehydration versus ACS versus chest wall pain versus cocaine chest pain Narrative Course 56-year-old female presents to the emergency department for evaluation of chest pain with left arm pain and bilateral leg cramping that began this morning. Patient is afebrile. She is initially tachycardic with a heart rate 108 bpm however her heart rate is now 80 bpm. Otherwise vital signs within normal limits. Physical examination is unremarkable. Patient has had multiple recent admissions for alcohol abuse and polysubstance abuse as well as noncompliance with her seizure medications. IV access is obtained, labs been drawn and sent. Patient is placed on cardiac telemetry and pulse oximetry monitoring. EKG shows normal sinus rhythm with no acute ST elevations or depressions. CBC is unremarkable. CMP is unremarkable. Troponin is less than 0.02. Coags are unremarkable. EtOH is less than 3. Urine tox is negative. The patient has remained stable and without complaint on here in the emergency department. I discussed the case with my attending physician Dr. Oswald who recommends admission to chest pain center. Patient is agreeable with this plan. Diagnosis Primary Impression: Chest pain Qualified Code: R07.9 - Chest pain, unspecified type Admitting Information Admitting Physician Requests: Observation Beth Dowell Sep 14, 2016 12:26
[2016-09-14] MEDS ORDERED: ASPIRIN 81 MG CHEW TAB PO ONE (12:30)
[2016-09-14 12:43] LABS: AUTOMATED NEUTROPHIL # 3.2 TH/MM3 (1.8-7.7); BASOPHIL % 0.8 % (0.0-2.0); EOSINOPHIL # 0.3 TH/MM3 (0-0.4); EOSINOPHIL % 4.3 % (0.0-4.0); HEMATOCRIT 40.4 % (35.0-46.0); HEMO FLAGS DIFF FINAL; LYMPH % 38.1 % (9.0-44.0); LYMPHOCYTE # 2.5 TH/MM3 (1.0-4.8); MEAN CELL VOLUME 90.6 FL (80.0-100.0); MEAN CORPUSCULAR HEMOGLOBIN 30.9 PG (27.0-34.0); MEAN CORPUSCULAR HGB CONC 34.1 % (32.0-36.0); MONO % 8.1 % (0.0-8.0); NEUT % 48.7 % (16.0-70.0); PLATELET COUNT 292 TH/MM3 (150-450); RED BLOOD COUNT 4.46 MIL/MM3 (4.00-5.30); RED CELL DISTRIBUTION WIDTH 13.1 % (11.6-17.2); WHITE BLOOD COUNT 6.5 TH/MM3 (4.0-11.0)
--- NOTE | 2016-09-14 12:48 | RADRPT ---
EXAM DATE/TIME: 09/14/2016 12:23 [facility] COMPARISON: CHEST SINGLE AP, May 29, 2016, 8:09. INDICATIONS : Mid sternal chest pains x1day with nausea and vomitting. MEDICAL HISTORY : Hypertension. Cardiovascular disease Seizures SURGICAL HISTORY : Jaw surgery. Right arm surgery. Left ankle screw ENCOUNTER: Initial ACUITY: 1 day PAIN SCORE: 10/10 LOCATION: Bilateral chest FINDINGS: A single view of the chest demonstrates the lungs to be symmetrically aerated without evidence of mas s, infiltrate or effusion. The cardiomediastinal contours are unremarkable. Osseous structures are intact. CONCLUSION: No acute disease. Epifanio Johansen MD FACR on September 14, 2016 at 12:46 Board Certified Radiologist. This report was verified electronically.
[2016-09-14 12:52] LABS: APTT (PATIENT) 25.7 SEC (24.3-30.1); INTERNATIONAL NORMALIZED RATIO 0.9 RATIO; PROTHROMBIN TIME - PATIENT 10.2 SEC (9.8-11.6)
[2016-09-14 13:02] LABS: ALKALINE PHOSPHATASE 118 U/L (45-117); CREATINE KINASE 110 U/L (26-192); TOTAL BILIRUBIN ADULT 0.3 MG/DL (0.2-1.0)
[2016-09-14 13:15] LABS: CKMB 1.4 NG/ML (0.5-3.6)
[2016-09-14 13:26] LABS: ALT (GPT) 17 U/L (10-53); ANION GAP 7 MEQ/L (5-15); AST (GOT) 21 U/L (15-37); BICARBONATE 25.6 MEQ/L (21.0-32.0); BLOOD UREA NITROGEN 10 MG/DL (7-18); CHLORIDE 105 MEQ/L (98-107); GLOMERULAR FILTRATION RATE 71 ML/MIN (>89); MAGNESIUM 2.1 MG/DL (1.5-2.5); POTASSIUM 4.2 MEQ/L (3.5-5.1); SODIUM (NA) 138 MEQ/L (136-145)
[2016-09-14 13:44] LABS: AMPHETAMINE, URINE NEG (NEG); BARBITURATES, URINE NEG (NEG); COCAINE, URINE NEG (NEG)
[2016-09-14 14:00] VITALS: BP 122/84; PULSE 82; RESP 20; O2SAT 99
[2016-09-14] MEDS ORDERED: CLIN1CAP6 PO (14:34)
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
[2016-09-14] MEDS: ACETAMINOPHEN 500 MG CPLT PO PRN ×2 (15:20→21:32)
[2016-09-14] MEDS: NITROGLYCERIN 0.4 MG SL 25 TABS/BTL SL PRN ×4 (16:26→21:35)
[2016-09-14 16:29] LABS: CREATINE KINASE 112 U/L (26-192)
[2016-09-14 19:40] LABS: CREATINE KINASE 87 U/L (26-192)
[2016-09-14] MEDS ORDERED: ALBUTEROL SULFATE 90 MCG/ACT HFA 18 GM INHALER INH PRN (19:45)
[2016-09-14 20:18] VITALS: BP 125/79; PULSE 75; RESP 18; TEMP 97.8; O2SAT 95
[2016-09-14] MEDS: PHENYTOIN SODIUM 100 MG CAP PO SCH (21:25)
[2016-09-14] MEDS: levETIRAcetam 500 MG TAB PO SCH (21:25)
[2016-09-14] MEDS: CLINDAMYCIN 150 MG CAP PO SCH (21:25)
[2016-09-14] MEDS: SODIUM CHLORIDE 0.9% FLUSH 10 ML FLUSH IV FLUSH SCH (21:26)
[2016-09-14] MEDS: MORPHINE SULFATE 4 MG/ML INJ IV PUSH PRN (21:44)
[2016-09-14 23:00] VITALS: PULSE 84
[2016-09-14 23:44] VITALS: BP 97/57; PULSE 80; RESP 18; TEMP 97.7; O2SAT 93
[2016-09-15] MEDS: CLINDAMYCIN 150 MG CAP PO SCH ×4 (01:06→21:11)
[2016-09-15] MEDS: MORPHINE SULFATE 4 MG/ML INJ IV PUSH PRN ×4 (01:07→18:11)
[2016-09-15] MEDS: SODIUM CHLORIDE 0.9% FLUSH 10 ML FLUSH IVF PRN ×2 (01:07→04:15)
[2016-09-15] MEDS: ONDANSETRON HCL 4 MG/2 ML VIAL IV PRN ×2 (01:11→09:06)
[2016-09-15 03:12] VITALS: BP 105/68; PULSE 70; RESP 18; TEMP 97.7; O2SAT 94
[2016-09-15] MEDS: PHENYTOIN SODIUM 100 MG CAP PO SCH ×3 (04:15→21:11)
[2016-09-15] MEDS: ACETAMINOPHEN 500 MG CPLT PO PRN ×2 (06:21→14:51)
[2016-09-15 07:04] VITALS: BP 99/55; PULSE 69; RESP 17; TEMP 97.8; O2SAT 96
[2016-09-15] MEDS: THIAMINE HCL 100 MG TAB PO SCH (09:05)
[2016-09-15] MEDS: ASPIRIN 325 MG TAB PO SCH (09:05)
[2016-09-15] MEDS: FOLIC ACID 1 MG TAB PO SCH (09:05)
[2016-09-15] MEDS: levETIRAcetam 500 MG TAB PO SCH ×2 (09:05→21:11)
[2016-09-15] MEDS: SODIUM CHLORIDE 0.9% FLUSH 10 ML FLUSH IV FLUSH SCH ×2 (09:06→21:10)
--- NOTE | 2016-09-15 09:20 | PD.CARD.PN ---
Subjective Subjective Remarks Continues to have intermittent bilateral lower leg pain and chest pain. Continues of left shoulder pain this morning. States morphine use overnight helped with pain "some." Objective Vital Signs / I&O Vital Signs Date Time Temp Pulse Resp B/P Pulse Ox O2 Delivery O2 Flow Rate FiO2 09/15/16 07:04 97.8 69 17 99/55 96 09/15/16 03:12 97.7 70 18 105/68 94 09/14/16 23:44 97.7 80 18 97/57 93 09/14/16 23:00 84 09/14/16 20:18 97.8 75 18 125/79 95 09/14/16 16:26 18 09/14/16 14:00 82 20 122/84 99 09/14/16 11:52 80 20 127/82 97 09/14/16 11:34 Room Air 09/14/16 11:21 97.8 108 20 137/74 99 Physical Exam GENERAL: Alert WN, WD, NAD, female HEAD: NC, AT CV: RRR, without murmur, rub, gallop. RESP: Clear lungs throughout bilateral MS: Normal tone 4 extremities, nontender, no obvious deformities, full range of motion NEURO: CN II through CN XII grossly intact, motor strength 5/5, gait WNL PSYCH: Flat affect, mildly anxious Laboratory Laboratory Tests Test 09/14/16 09/14/16 09/14/16 09/15/16 12:10 13:30 18:30 04:34 White Blood Count 6.5 TH/MM3 Red Blood Count 4.46 MIL/MM3 Hemoglobin 13.8 GM/DL Hematocrit 40.4 % Mean Corpuscular Volume 90.6 FL Mean Corpuscular Hemoglobin 30.9 PG Mean Corpuscular Hemoglobin 34.1 % Concent Red Cell Distribution Width 13.1 % Platelet Count 292 TH/MM3 Mean Platelet Volume 6.9 FL Neutrophils (%) (Auto) 48.7 % Lymphocytes (%) (Auto) 38.1 % Monocytes (%) (Auto) 8.1 % Eosinophils (%) (Auto) 4.3 % Basophils (%) (Auto) 0.8 % Neutrophils # (Auto) 3.2 TH/MM3 Lymphocytes # (Auto) 2.5 TH/MM3 Monocytes # (Auto) 0.5 TH/MM3 Eosinophils # (Auto) 0.3 TH/MM3 Basophils # (Auto) 0.0 TH/MM3 CBC Comment DIFF FINAL Differential Comment Prothrombin Time 10.2 SEC Prothromb Time International 0.9 RATIO Ratio Activated Partial 25.7 SEC Thromboplast Time Sodium Level 138 MEQ/L Potassium Level 4.2 MEQ/L Chloride Level 105 MEQ/L Carbon Dioxide Level 25.6 MEQ/L Anion Gap 7 MEQ/L Blood Urea Nitrogen 10 MG/DL Creatinine 0.84 MG/DL Estimat Glomerular Filtration 71 ML/MIN Rate Random Glucose 124 MG/DL Calcium Level 8.9 MG/DL Magnesium Level 2.1 MG/DL Total Bilirubin 0.3 MG/DL Aspartate Amino Transf 21 U/L (AST/SGOT) Alanine Aminotransferase 17 U/L (ALT/SGPT) Alkaline Phosphatase 118 U/L Total Creatine Kinase 110 U/L 112 U/L 87 U/L Creatine Kinase MB 1.4 NG/ML Troponin I LESS THAN 0.02 LESS THAN 0.02 LESS THAN 0.02 NG/ML NG/ML NG/ML Total Protein 7.6 GM/DL Albumin 3.7 GM/DL Lipase 151 U/L Ethyl Alcohol Level LESS THAN 3 MG/DL D-Dimer Quantitative (PE/DVT) 0.75 MG/L FEU Imaging Last Impressions Chest X-Ray 09/14/16 1218 Signed Impressions: Service Date/Time: Wednesday, September 14, 2016 12:23 - CONCLUSION: No acute disease. Epifanio Johansen MD FACR Assessment and Plan Assessment and Plan #1 Chest painadmitted to chest pain center. Ruled out with 3 sets of EKGs and cardiac enzymes. Plan to complete a chemical stress. D-dimer elevated, and she has an iodine allergy therefore a V/Q scan will be ordered. Discussed case with Dr. Dior and Susana. requesting consult hospitalist for medical and pain management. Will discuss with hospitalist once assigned. #2 Musculoskeletal paincontinue morphine PRN #3 Seizurescontinue Keppra and Dilantin #4 Tobacco usecounseled on the importance of tobacco sensation. Encouraged patient to quit smoking. Leyla Loomis Sep 15, 2016 09:20
--- NOTE | 2016-09-15 10:35 | HHI.PR ---
Subjective Remarks resting comfortably. although complaining of some chest pain. d/w the RN and no other acute issues. Objective Vitals Vital Signs Date Time Temp Pulse Resp B/P Pulse Ox O2 Delivery O2 Flow Rate FiO2 09/15/16 07:04 97.8 69 17 99/55 96 09/15/16 03:12 97.7 70 18 105/68 94 09/14/16 23:44 97.7 80 18 97/57 93 09/14/16 23:00 84 09/14/16 20:18 97.8 75 18 125/79 95 09/14/16 16:26 18 09/14/16 14:00 82 20 122/84 99 09/14/16 11:52 80 20 127/82 97 09/14/16 11:34 Room Air 09/14/16 11:21 97.8 108 20 137/74 99 Result Diagram: 09/14/16 1210 09/14/16 1210 Imaging Last Impressions Chest X-Ray 09/14/16 1218 Signed Impressions: Service Date/Time: Wednesday, September 14, 2016 12:23 - CONCLUSION: No acute disease. Epifanio Johansen MD FACR Objective Remarks GENERAL: This is a well-nourished, well-developed patient, in no apparent distress. CARDIOVASCULAR: Regular rate and regular rhythm without murmurs, gallops, or rubs. RESPIRATORY: Clear to auscultation. Breath sounds equal bilaterally. No wheezes , rales, or rhonchi. chest is tender to touch. GASTROINTESTINAL: Abdomen soft, non-tender, nondistended. Normal, active bowel sounds MUSCULOSKELETAL: Extremities without clubbing, cyanosis, or edema. NEURO: Alert & Oriented x4 to person, place, time, situation. Moves all ext x4 Procedures none Medications and IVs Current Medications Aspirin (Aspirin Chew) 324 mg ONCE ONCE PO Last administered on 09/14/16 13: 06; Start 09/14/16 at 12:30; Stop 09/14/16 at 12:31; Status DC Sodium Chloride (NS Flush) 2 ml UNSCH PRN IVF FLUSH AFTER USING IV ACCESS Last administered on 09/15/16 04:15; Start 09/14/16 at 12:30 Sodium Chloride (NS Flush) 2 ml BID IV FLUSH Last administered on 09/15/16 09: 06; Start 09/14/16 at 21:00 Acetaminophen (Tylenol) 500 mg Q4H PRN PO HEADACHE Last administered on 06:21; Start 09/14/16 at 14:30 Ondansetron HCl (Zofran Inj) 4 mg Q6H PRN IV NAUSEA Last administered on 09:06; Start 09/14/16 at 14:30 Nitroglycerin (Nitrostat Sl) 0.4 mg Q5M PRN SL CHEST PAIN Last administered on 09/14/16 21:35; Start 09/14/16 at 14:30 Aspirin (Aspirin) 325 mg DAILY PO Last administered on 09/15/16 09:05; Start 09/15/16 at 09:00 Morphine Sulfate (Morphine Inj) 2 mg Q3H PRN IV PUSH PAIN GREATER THAN 5 Last administered on 09/15/16 09:07; Start 09/14/16 at 16:30 Albuterol Sulfate (Ventolin Hfa Inh) 2 puff Q4H PRN INH SHORTNESS OF BREATH; Start 09/14/16 at 19:45 Clindamycin HCl (Cleocin) 300 mg Q6H PO Last administered on 09/15/16 09:06; Start 09/14/16 at 20:00 Folic Acid (Folate) 1 mg DAILY PO Last administered on 09/15/16 09:05; Start 09/15/16 at 09:00 Levetriacetam (Keppra) 1,000 mg BID PO Last administered on 09/15/16 09:05; Start 09/14/16 at 21:00 Phenytoin (Dilantin) 100 mg Q8HR PO Last administered on 09/15/16 04:15; Start 09/14/16 at 22:00 Thiamine HCl (Vitamin B1) 100 mg DAILY PO Last administered on 09/15/16 09:05 ; Start 09/15/16 at 09:00 A/P Assessment and Plan A/P - chest pain cardiac enzymes negative. will do V/Q scan since d-dimet is elevated. continue with pain control. evaluated by cardiology. -seizure disorder; resumed home meds -UTI?- says that started on Clindamycin- will check the UA -COPD with no exacerbation; albuterol as needed. Liu Moss MD Sep 15, 2016 10:35
--- NOTE | 2016-09-15 11:57 | RADRPT ---
EXAM DATE/TIME: 09/15/2016 11:19 [facility] COMPARISON: CHEST SINGLE AP, September 14, 2016, 12:23. INDICATIONS : Chest pain with shortness of breath and bilateral leg pain for one day. DOSE: 8.7 mCi Tc99m MAA IV 0.79 mCi Tc99m DTPA aerosol MEDICAL HISTORY : Chronic obstructive pulmonary disease. Hypertension. SURGICAL HISTORY : None. ENCOUNTER: Initial ACUITY: 1 day PAIN SCALE: 4/10 LOCATION: chest TECHNIQUE: Following five minutes of tidal breathing of DTPA aerosol, planar images of the lungs were performed in eight projections. The patient was then injected with MAA, and eight-view perfusion scan was perf ormed. FINDINGS: The perfusion portion is intact and there are ventilatory defects bilaterally probably due to COPD. CONCLUSION: Multiple bilateral ventilatory defects and no evidence for PE. Lesley Putnam MD on September 15, 2016 at 11:52 Board Certified Radiologist. This report was verified electronically.
[2016-09-15 14:00] VITALS: PULSE 81
--- NOTE | 2016-09-15 14:02 | EKG ---
Date Performed: 09/15/2016 Time Performed: 02:00:18 PTAGE: 56 years EKG: Sinus rhythm POSSIBLE RIGHT VENTRICULAR CONDUCTION DELAY BORDERLINE ECG Since PREVIOUS TRACING , no significant change noted PREVIOUS TRACIN09/14/2016 21.20 DOCTOR: Mikaela Dior Interpretating Date/Time 09/15/2016 13:59:59
--- NOTE | 2016-09-15 14:05 | EKG ---
Date Performed: 09/14/2016 Time Performed: 21:20:53 PTAGE: 56 years EKG: Sinus rhythm POSSIBLE RIGHT VENTRICULAR CONDUCTION DELAY BORDERLINE ECG Since PREVIOUS TRACING , no significant change noted PREVIOUS TRACIN09/14/2016 18.39 DOCTOR: Mikaela Dior Interpretating Date/Time 09/15/2016 14:00:51
--- NOTE | 2016-09-15 14:07 | EKG ---
Date Performed: 09/14/2016 Time Performed: 18:39:05 PTAGE: 56 years EKG: Sinus rhythm NORMAL ECG Since PREVIOUS TRACING , no significant change noted PREVIOUS TRACIN09/14/2016 15.31 DOCTOR: Mikaela Dior Interpretating Date/Time 09/15/2016 14:02:39
--- NOTE | 2016-09-15 14:08 | EKG ---
Date Performed: 09/14/2016 Time Performed: 15:31:24 PTAGE: 56 years EKG: Sinus rhythm POSSIBLE RIGHT VENTRICULAR CONDUCTION DELAY BORDERLINE ECG Since PREVIOUS TRACING , no significant change noted PREVIOUS TRACIN09/14/2016 12.28 DOCTOR: Mikaela Dior Interpretating Date/Time 09/15/2016 14:04:33
--- NOTE | 2016-09-15 14:10 | EKG ---
Date Performed: 09/14/2016 Time Performed: 12:28:28 PTAGE: 56 years EKG: Sinus rhythm NORMAL ECG Since PREVIOUS TRACING , no significant change noted PREVIOUS TRACIN05/29/2016 10.53 DOCTOR: Mikaela Dior Interpretating Date/Time 09/15/2016 14:05:38
[2016-09-15 15:23] LABS: BACTERIA, URINE OCC /hpf; BLOOD, URINE MOD (NEG); COMMENT (UR) CULTURE INDICATED; CULTURE IF INDICATED CULTURE INDICATED; GLUCOSE,URINE NEG (NEG); KETONE, URINE NEG (NEG); NITRITE,URINE NEG (NEG); PH, URINE 5.5 (5.0-8.5); SQUAMOUS EPITHELIAL CELL URINE 11 /hpf (0-5); TRANSITIONAL EPI CELLS, URINE 1 /hpf; URINE COLOR YELLOW (YELLW/STRAW)
[2016-09-15 15:29] VITALS: BP 101/63; PULSE 73; RESP 16; TEMP 97.9; O2SAT 93
[2016-09-15 19:22] VITALS: PULSE 72
[2016-09-15 21:21] VITALS: BP 99/58; PULSE 85; RESP 18; TEMP 97.9; O2SAT 97
[2016-09-15] MEDS: ACETAMINOPHEN/HYDROcodone 325 MG/5 MG TAB PO PRN (21:32)
[2016-09-16] VITALS (9 sets, daily range): BP systolic 101–117; BP diastolic 58–68; PULSE 67–84; RESP 16–18; TEMP 97.5–98.2; O2SAT 94–97
[2016-09-16] MEDS: MORPHINE SULFATE 4 MG/ML INJ IV PUSH PRN (01:17)
[2016-09-16] MEDS: CLINDAMYCIN 150 MG CAP PO SCH (02:28)
[2016-09-16] MEDS ORDERED: diphenhydrAMINE HCL 25 MG CAP PO ONE (03:45)
[2016-09-16] MEDS: ACETAMINOPHEN/HYDROcodone 325 MG/5 MG TAB PO PRN ×3 (05:42→19:34)
[2016-09-16] MEDS: PHENYTOIN SODIUM 100 MG CAP PO SCH ×3 (05:42→21:40)
--- NOTE | 2016-09-16 06:50 | HHI.PR ---
Subjective Remarks resting comfortably with no distress. on and off chest pain. no sob. Objective Vitals Vital Signs Date Time Temp Pulse Resp B/P Pulse Ox O2 Delivery O2 Flow Rate FiO2 09/16/16 06:42 18 09/16/16 05:52 84 18 103/58 96 09/16/16 01:33 18 09/16/16 01:14 68 09/16/16 01:04 98.2 81 18 101/58 97 09/15/16 21:21 97.9 85 18 99/58 97 09/15/16 19:22 72 09/15/16 15:29 97.9 73 16 101/63 93 09/15/16 14:00 81 09/15/16 07:04 97.8 69 17 99/55 96 Result Diagram: 09/14/16 1210 09/14/16 1210 Imaging Last Impressions Lung Scan-VQ Nuclear Medicine 09/15/16 0000 Signed Impressions: Service Date/Time: August 11:19 - CONCLUSION: Multiple bilateral ventilatory defects and no evidence for PE. KGwendolyn Putnam MD Chest X-Ray 09/14/16 1218 Signed Impressions: Service Date/Time: Wednesday, September 14, 2016 12:23 - CONCLUSION: No acute disease. Epifanio Johansen MD FACR Objective Remarks GENERAL: This is a well-nourished, well-developed patient, in no apparent distress. CARDIOVASCULAR: Regular rate and regular rhythm without murmurs, gallops, or rubs. RESPIRATORY: Clear to auscultation. Breath sounds equal bilaterally. No wheezes , rales, or rhonchi. chest is tender to touch. GASTROINTESTINAL: Abdomen soft, non-tender, nondistended. Normal, active bowel sounds MUSCULOSKELETAL: Extremities without clubbing, cyanosis, or edema. NEURO: Alert & Oriented x4 to person, place, time, situation. Moves all ext x4 Procedures none Medications and IVs Current Medications Aspirin (Aspirin Chew) 324 mg ONCE ONCE PO Last administered on 09/14/16 13: 06; Start 09/14/16 at 12:30; Stop 09/14/16 at 12:31; Status DC Sodium Chloride (NS Flush) 2 ml UNSCH PRN IVF FLUSH AFTER USING IV ACCESS Last administered on 09/15/16 04:15; Start 09/14/16 at 12:30 Sodium Chloride (NS Flush) 2 ml BID IV FLUSH Last administered on 09/15/16 21: 10; Start 09/14/16 at 21:00 Acetaminophen (Tylenol) 500 mg Q4H PRN PO HEADACHE Last administered on 14:51; Start 09/14/16 at 14:30 Ondansetron HCl (Zofran Inj) 4 mg Q6H PRN IV NAUSEA Last administered on 09:06; Start 09/14/16 at 14:30 Nitroglycerin (Nitrostat Sl) 0.4 mg Q5M PRN SL CHEST PAIN Last administered on 09/14/16 21:35; Start 09/14/16 at 14:30 Aspirin (Aspirin) 325 mg DAILY PO Last administered on 09/15/16 09:05; Start 09/15/16 at 09:00 Morphine Sulfate (Morphine Inj) 2 mg Q3H PRN IV PUSH BREAKTHROUGH PAIN Last administered on 09/16/16 01:17; Start 09/14/16 at 16:30 Albuterol Sulfate (Ventolin Hfa Inh) 2 puff Q4H PRN INH SHORTNESS OF BREATH; Start 09/14/16 at 19:45 Clindamycin HCl (Cleocin) 300 mg Q6H PO Last administered on 09/16/16 02:28; Start 09/14/16 at 20:00 Folic Acid (Folate) 1 mg DAILY PO Last administered on 09/15/16 09:05; Start 09/15/16 at 09:00 Levetriacetam (Keppra) 1,000 mg BID PO Last administered on 09/15/16 21:11; Start 09/14/16 at 21:00 Phenytoin (Dilantin) 100 mg Q8HR PO Last administered on 09/16/16 05:42; Start 09/14/16 at 22:00 Thiamine HCl (Vitamin B1) 100 mg DAILY PO Last administered on 09/15/16 09:05 ; Start 09/15/16 at 09:00 Acetaminophen/ Hydrocodone Bitart ([place] 5-325 Mg) 1 tab Q4H PRN PO PAIN >5 Last administered on 09/16/16 05:42; Start 09/15/16 at 10:30 Diphenhydramine HCl (Benadryl) 25 mg ONCE ONCE PO Last administered on t 04:28; Start 09/16/16 at 03:45; Stop 09/16/16 at 03:46; Status DC A/P Assessment and Plan A/P - chest pain cardiac enzymes negative. V/Q scan negative for PE. continue with pain control. stress test today. evaluated by cardiology. -seizure disorder; resumed home meds -possible UTI- dc Clindamycin ans start cipro- UC pending. -COPD with no exacerbation; albuterol as needed. Discharge Planning possible dc home later today if the stress test is negative. Liu Moss MD Sep 16, 2016 06:50
[2016-09-16] MEDS ORDERED: CIPR250T52 PO (06:51)
[2016-09-16] MEDS ORDERED: CIPR-9 PO (06:54)
[2016-09-16] MEDS: ASPIRIN 325 MG TAB PO SCH (10:52)
[2016-09-16] MEDS: SODIUM CHLORIDE 0.9% FLUSH 10 ML FLUSH IV FLUSH SCH ×2 (10:52→21:39)
[2016-09-16] MEDS: THIAMINE HCL 100 MG TAB PO SCH (10:53)
[2016-09-16] MEDS: CIPROFLOXACIN 500 MG TAB PO SCH ×2 (10:53→21:40)
[2016-09-16] MEDS: FOLIC ACID 1 MG TAB PO SCH (10:53)
[2016-09-16] MEDS: levETIRAcetam 500 MG TAB PO SCH ×2 (10:53→21:40)
[2016-09-17 00:51] VITALS: BP 109/68; PULSE 66; RESP 18; TEMP 97.8; O2SAT 97
[2016-09-17] MEDS: ACETAMINOPHEN/HYDROcodone 325 MG/5 MG TAB PO PRN ×2 (01:13→09:48)
[2016-09-17] MEDS: MORPHINE SULFATE 4 MG/ML INJ IV PUSH PRN (04:18)
[2016-09-17 04:54] VITALS: BP 109/68; PULSE 66; RESP 18; TEMP 98.1; O2SAT 98
[2016-09-17] MEDS: PHENYTOIN SODIUM 100 MG CAP PO SCH ×2 (06:28→15:01)
[2016-09-17 07:39] VITALS: PULSE 64
[2016-09-17 08:22] VITALS: BP 96/61; PULSE 65; RESP 18; TEMP 97.7; O2SAT 95
--- NOTE | 2016-09-17 08:49 | HHI.PR ---
Subjective Remarks Follow up for chest pain, UTI. The patient reports last night she had an episode of sharp chest pain located at the left anterior chest with radiation into the left shoulder and numbness/tingling down both arms, worse on the left. She received IV Morphine, and pain was relieved. 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 She will be going for nuclear stress test today. She wants to go home today if possible. She has no other medical complaints at this time. Objective Vitals Vital Signs Date Time Temp Pulse Resp B/P Pulse Ox O2 Delivery O2 Flow Rate FiO2 09/17/16 08:22 97.7 65 18 96/61 95 09/17/16 07:39 64 09/17/16 04:54 98.1 66 18 109/68 98 09/17/16 04:35 18 09/17/16 02:54 18 09/17/16 00:51 97.8 66 18 109/68 97 09/16/16 23:30 67 09/16/16 19:00 97.9 75 18 117/64 97 09/16/16 15:30 97.5 78 16 108/66 96 09/16/16 11:10 97.8 68 16 109/68 94 09/16/16 10:00 68 Result Diagram: 09/14/16 1210 09/14/16 1210 Imaging Last Impressions Lung Scan-VQ Nuclear Medicine 09/15/16 0000 Signed Impressions: Service Date/Time: August 11:19 - CONCLUSION: Multiple bilateral ventilatory defects and no evidence for PE. K. Jeff Putnam MD Chest X-Ray 09/14/16 1218 Signed Impressions: Service Date/Time: Wednesday, September 14, 2016 12:23 - CONCLUSION: No acute disease. Epifanio Johansen MD FACR Objective Remarks GENERAL: Well-nourished, well-developed middle aged female patient in NAD. SKIN: Warm and dry. No rash. HEENT: Normocephalic. Atraumatic. Pupils equal and round. Mucous membranes pink and moist. NECK: Supple. Trachea midline. CARDIOVASCULAR: Regular rate and rhythm. S1, S2 noted. No murmur appreciated. RESPIRATORY: No accessory muscle use. Clear to auscultation. Breath sounds equal bilaterally. GASTROINTESTINAL: Abdomen soft, non-tender, nondistended. Normoactive bowel sounds x4. MUSCULOSKELETAL: No obvious deformities. Extremities without clubbing, cyanosis , or edema. NEUROLOGICAL: Awake and alert. No obvious cranial nerve deficits. Motor grossly within normal limits. Normal speech. PSYCHIATRIC: Appropriate mood and affect; insight and judgment normal. Procedures none Medications and IVs Current Medications Medications (Trade) Dose Ordered Sig/Jesus Route Start Time Stop Time Status Last Admin (NS Flush) 2 ml UNSCH PRN IVF 09/14/16 12:30 09/15/16 04:15 (NS Flush) 2 ml BID IV FLUSH 09/14/16 21:00 09/16/16 21:39 (Tylenol) 500 mg Q4H PRN PO 09/14/16 14:30 09/15/16 14:51 (Zofran Inj) 4 mg Q6H PRN IV 09/14/16 14:30 09/15/16 09:06 (Nitrostat Sl) 0.4 mg Q5M PRN SL 09/14/16 14:30 09/14/16 21:35 (Aspirin) 325 mg DAILY PO 09/15/16 09:00 09/16/16 10:52 (Morphine Inj) 2 mg Q3H PRN IV PUSH 09/14/16 16:30 09/17/16 04:18 (Ventolin Hfa Inh) 2 puff Q4H PRN INH 09/14/16 19:45 (Folate) 1 mg DAILY PO 09/15/16 09:00 09/16/16 10:53 (Keppra) 1,000 mg BID PO 09/14/16 21:00 09/16/16 21:40 (Dilantin) 100 mg Q8HR PO 09/14/16 22:00 09/17/16 06:28 (Vitamin B1) 100 mg DAILY PO 09/15/16 09:00 09/16/16 10:53 ([place] 5-325 Mg) 1 tab Q4H PRN PO 09/15/16 10:30 09/17/16 01:13 (Cipro) 500 mg Q12HR PO 09/16/16 09:00 09/16/16 21:40 A/P Problem List: (1) Chest pain ICD Code: R07.9 Status: Acute (2) Urinary tract infection ICD Code: N39.0 Status: Acute (3) Seizure disorder ICD Code: G40.909 Status: Chronic Assessment and Plan 56-year-old female with history of alcohol abuse and seizure disorder presents with chest pain Atypical Chest Pain: CXR unremarkable. ACS ruled out with negative serial cardiac enzymes and EKG without acute ischemic changes. V/Q scan negative for PE. Initially evaluated by cardiology in [facility], transferred to hospitalists. Continue pain control with [place] and IV morphine prn. Plan for nuclear stress test today, if negative, will discharge home. Seizure disorder: chronic, continue patient's Keppra and Dilantin. Seizure precautions. Suspected UTI: started on Cipro. Monitor urine culture. COPD: chronic, no acute exacerbation. Albuterol as needed. Tobacco Use: counseled on cessation. Avoid nicotine patch with chest pain as above. DVT Prophylaxis: teds/SCDs Discussed with Dr. Hardwick. Discharge Planning Likely discharge today if nuclear stress test unremarkable. Discharge patient to home Condition on discharge: Improved Heart Healthy Diet as tolerated Ad Sara activity, no driving Rx written: Follow-up with primary care physician within 1 week Problem Qualifiers (1) Chest pain: Qualified Code: R07.9 - Chest pain, unspecified type Mara aPtel PA-C Sep 17, 2016 8:49 am
[2016-09-17] MEDS: FOLIC ACID 1 MG TAB PO SCH (08:54)
[2016-09-17] MEDS: ACETAMINOPHEN 500 MG CPLT PO PRN ×2 (08:54→15:47)
[2016-09-17] MEDS: THIAMINE HCL 100 MG TAB PO SCH (08:54)
[2016-09-17] MEDS: CIPROFLOXACIN 500 MG TAB PO SCH (08:54)
[2016-09-17] MEDS: levETIRAcetam 500 MG TAB PO SCH (08:54)
[2016-09-17] MEDS: ASPIRIN 325 MG TAB PO SCH (08:54)
[2016-09-17] MEDS: SODIUM CHLORIDE 0.9% FLUSH 10 ML FLUSH IV FLUSH SCH (08:55)
--- NOTE | 2016-09-17 10:20 | HHI.DCPOC ---
Discharge Care Plan Diagnosis: (1) Chest pain (2) Seizure disorder (3) Urinary tract infection Goals to Promote Your Health * To prevent worsening of your condition and complications * To maintain your health at the optimal level Directions to Meet Your Goals Take your medications as prescribed Follow your dietary instruction Follow activity as directed Keep your appointments as scheduled Take your immunizations and boosters as scheduled If your symptoms worsen call your PCP, if no PCP go to Urgent Care Center or Emergency Room Smoking is Dangerous to Your Health. Avoid second hand smoke Call the 24-hour hour crisis hotline for domestic abuse at Mara Patel PA-C Sep 17, 2016 10:20 am
[2016-09-17 12:20] VITALS: BP 100/72; PULSE 80; RESP 16; TEMP 97.6; O2SAT 97
[2016-09-17] MEDS ORDERED: REGADENOSON INJ 0.4 MG/5 ML SYR ONE (13:47)
--- NOTE | 2016-09-17 14:46 | RADRPT ---
EXAM DATE/TIME: 09/17/2016 13:22 [facility] COMPARISON: No previous studies available for comparison. INDICATIONS : Left chest pain radiating to the left arm with lightheadedness, dyspnea and nausea. Angina. DOSE: 25.5 mCi Tc99m Myoview at stress. 8.1 mCi Tc99m Myoview at rest. 0.4 mg Lexiscan STRESS SYMPTOMS: Short of breath. EJECTION FRACTION: > 70% MEDICAL HISTORY : Hypercholesterolemia. Chronic obstructive pulmonary disease. Hypertension. Polysubstance abuse. Smoke r. SURGICAL HISTORY : Stomach surgery. ENCOUNTER: Initial ACUITY: 2 days PAIN SCALE: 5/10 LOCATION: Left chest TECHNIQUE: The patient underwent pharmacologic stress with infusion of prescribed dose. Continuous ECG tracing was monitored during stress. Gated SPECT imaging was performed after stress and conventional SPECT i maging was performed at rest. The examination was performed on a SPECT/CT scanner, both attenuation and non-corrected datasets were reviewed. FINDINGS: DISTRIBUTION: The maximum perfused segment at stress is in the lateral wall. PERFUSION STUDY: The pattern of perfusion at stress is within normal limits. GATED STUDY: There is intact wall motion and thickening without hypokinetic or dyskinetic segments. CONCLUSION: No definite reversible perfusion defects are identified to suggest stress-induced myocardial ischemia . RISK CATEGORY: Low (<1% Annual Mortality Rate) Rafi Woodward MD on September 17, 2016 at 14:43 Board Certified Radiologist. This report was verified electronically.
[2016-09-17 15:45] VITALS: PULSE 79
--- NOTE | 2016-09-17 17:33 | HHI.DS ---
Discharge Summary Admission Date Sep 14, 2016 at 1:32 pm Discharge Date: Sep 17, 2016 Admitting Diagnosis Chest Pain (1) Chest pain ICD Code: R07.9 Diagnosis: Principal (2) Urinary tract infection ICD Code: N39.0 Diagnosis: Secondary (3) Seizure disorder ICD Code: G40.909 Diagnosis: Secondary Procedures none Brief History - [facility] H&P: 56-year-old female history of bipolar, hypertension, seizure disorder, and anxiety presents to the emergency room for further evaluation of chest pain and bilateral leg pain. Onset this morning at approximately 3 AM. Location substernal characterized as a sharp stabbing pain. Duration few minutes. No radiation. States pain came on quickly. Gradually went away. Associated symptoms included shortness of breath, and no diaphoresis nausea or vomiting. Hurt to take a deep breath. No known precipitating or relieving factors. No recent illness or cough. Also experiences bilateral lower leg cramping. She has never had leg pain in the past. CBC/BMP: 09/14/16 1210 09/14/16 1210 Significant Findings Laboratory Tests Test 09/14/16 09/15/16 09/15/16 18:30 04:34 15:06 Troponin I LESS THAN 0.02 NG/ML (0.02-0.05) D-Dimer Quantitative (PE/DVT) 0.75 MG/L FEU (0.00-0.50) Urine Turbidity HAZY (CLEAR) Urine Protein 30 mg/dL (NEG-TRACE) Urine Occult Blood MOD (NEG) Urine Leukocyte Esterase LARGE (NEG) Urine RBC 14 /hpf (0-3) Urine WBC 11 /hpf (0-5) Urine Bacteria OCC /hpf (NONE) Imaging Last Impressions Myocardial Perfusion Scan Nuc Med 09/17/16 0000 Signed Impressions: Service Date/Time: Saturday, September 17, 2016 13:22 - CONCLUSION: No definite reversible perfusion defects are identified to suggest stress-induced myocardial ischemia. RISK CATEGORY: Low (<1%% Annual Mortality Rate) Rafi Woodward MD Lung Scan-VQ Nuclear Medicine 09/15/16 0000 Signed Impressions: Service Date/Time: August 11:19 - CONCLUSION: Multiple bilateral ventilatory defects and no evidence for PE. Lesley Putnam MD Chest X-Ray 09/14/16 1218 Signed Impressions: Service Date/Time: Wednesday, September 14, 2016 12:23 - CONCLUSION: No acute disease. Epifanio Johansen MD FACR PE at Discharge GENERAL: Well-nourished, well-developed middle aged female patient in [facility]. SKIN: Warm and dry. No rash. HEENT: Normocephalic. Atraumatic. Pupils equal and round. Mucous membranes pink and moist. NECK: Supple. Trachea midline. CARDIOVASCULAR: Regular rate and rhythm. S1, S2 noted. No murmur appreciated. RESPIRATORY: No accessory muscle use. Clear to auscultation. Breath sounds equal bilaterally. GASTROINTESTINAL: Abdomen soft, non-tender, nondistended. Normoactive bowel sounds x4. MUSCULOSKELETAL: No obvious deformities. Extremities without clubbing, cyanosis , or edema. NEUROLOGICAL: Awake and alert. No obvious cranial nerve deficits. Motor grossly within normal limits. Normal speech. PSYCHIATRIC: Appropriate mood and affect; insight and judgment normal. Hospital Course 56-year-old female with history of alcohol abuse and seizure disorder presents with chest pain Atypical Chest Pain: CXR unremarkable. ACS ruled out with negative serial cardiac enzymes and EKG without acute ischemic changes. V/Q scan negative for PE. Initially evaluated by cardiology in [facility], transferred to hospitalists. Continue pain control with [place] and IV morphine prn. Patient kept for additional day for nuclear stress test unable to be done within 48hrs of VQ scan. Nuclear stress test today showed now definite reversible perfusion defects to suggest stress-induced myocardial ischemia. Chest pain resolved. Patient discharged home in stable condition. Seizure disorder: chronic, continue patient's Keppra and Dilantin. Seizure precautions. Suspected UTI: given Cipro. Urine culture with mixed gram positive kyle. Discharged on cipro x3days. COPD: chronic, no acute exacerbation. Albuterol as needed. Stable. Tobacco Use: counseled on cessation. Avoid nicotine patch with chest pain as above. DVT Prophylaxis: teds/SCDs Discussed with Dr. Hardwick. Pt Condition on Discharge: Stable Discharge Disposition: Discharge Home Discharge Time: > 30 minutes Discharge Instructions DIET: Follow Instructions for: Heart Healthy Diet Activities you can perform: Regular-No Restrictions Activities to Avoid: Driving Other Activity Instructions: No driving or operating heavy machinery. No swimming or bathing alone, ok to shower. No climbing heights or carrying small children. These activities increase your risk for injury or to yourself or others if you were to have a seizure. Avoid alcohol, stressful situations, caffeine, lack of sleep, loud noises, flashing lights, and dehydration as these can all trigger a seizure. Follow up Referrals: PCP Follow-up New Medications: Ciprofloxacin (Cipro) 500 Mg Tab 500 MG PO BID Infection Days 3 Ref 0 TAB Continued Medications: Albuterol 18 GM Inh (Ventolin Hfa 18 GM Inh) 90 Mcg/Act Aer 2 PUFF INH Q4H PRN SHORTNESS OF BREATH #1 Ref 3 INHALER Folic Acid (Folate) 1 Mg Tab 1 MG PO DAILY Nutritional Supplement #30 Ref 0 TAB Levetiracetam (Keppra) 1,000 Mg Tab 1000 MG PO BID Control Seizures #60 Ref 3 TAB Phenytoin Extended (Dilantin) 100 Mg Cap 100 MG PO Q8HR Seizure Control #90 Ref 3 CAP Thiamine (Vitamin B-1) 100 Mg Tab 100 MG PO DAILY vitamin supp #30 TAB Discontinued Medications: Clindamycin (Clindamycin) 300 Mg Cap 300 MG PO Q6H Infection Ref 0 CAP Mara Patel PA-C Sep 17, 2016 5:32 pm
[2016-11-10] MEDS ORDERED: OXCA300T PO (16:00)
[2016-11-10] MEDS ORDERED: QUET-88 PO (16:00)
[2016-11-10] MEDS ORDERED: AMIT50TA3 PO (16:00)
[2016-11-10] MEDS ORDERED: HYDR50CA PO (16:00)
[2016-11-10] MEDS ORDERED: GABA300C5 PO (16:37)
== END 2016-09-17 16:27 | disposition home or self-care (01) ==
LOC: NEPE 11:20 → NEDA 13:32 → NEPGCP 19:54
PROVIDERS: ADMIT Internal Medicine; ATTEND Internal Medicine
DX: R07.89 Other chest pain (principal); G40.909 Epilepsy, unspecified, not intractable, without status epilepticus; N39.0 Urinary tract infection, site not specified; I10 Essential (primary) hypertension; J44.9 Chronic obstructive pulmonary disease, unspecified; M19.90 Unspecified osteoarthritis, unspecified site; F31.9 Bipolar disorder, unspecified; F41.9 Anxiety disorder, unspecified; M54.9 Dorsalgia, unspecified; G89.29 Other chronic pain; E78.00 Pure hypercholesterolemia, unspecified; F17.210 Nicotine dependence, cigarettes, uncomplicated; Z88.0 Allergy status to penicillin; Z88.8 Allergy status to other drugs, medicaments and biological substances
CPT/HCPCS: 71010; 78452; 78582; 80053; 80307; 81001; 82550; 82552; 83690; 83735; 84484; 85025; 85379; 85610; 85730; 87086; 93005; 93017; 99285; A9502; A9540; A9567; G0378; J2270; J2405; J2785

== ENCOUNTER 2016-09-30 13:34 | Emergency (ER) | payer OTHER ==
[~2016-09-30] VITALS: Ht 165.1 cm; Wt 65.0 kg
[~2016-09-30 13:34] MED LIST changes: +CIPR-9 PO; -CLINPOW PO
[2016-09-30 13:37] VITALS: BP 178/84; PULSE 118; RESP 14; TEMP 97.8; O2SAT 100
[2016-09-30] MEDS ORDERED: SODIUM CHLOR 0.9% 1000 ML INJ 1,000 ML IV ONE ×2 (13:43→13:56)
[2016-09-30] MEDS ORDERED: THIAMINE INJ 100 MG in SODIUM CHLORIDE 0.9% INJ 100 ML IV ONE (13:45)
[2016-09-30] MEDS ORDERED: LORazepam 2 MG/ML VIAL IVS ONE (13:45)
[2016-09-30 13:51] VITALS: RESP 14
[2016-09-30] MEDS ORDERED: LORazepam 2 MG/ML VIAL IM ONE (14:00)
[2016-09-30] MEDS ORDERED: SODIUM CHLORIDE 0.9% FLUSH 10 ML FLUSH IVF PRN (14:00)
[2016-09-30 14:23] LABS: AUTOMATED NEUTROPHIL # 4.1 TH/MM3 (1.8-7.7); BASOPHIL % 0.5 % (0.0-2.0); EOSINOPHIL # 0.3 TH/MM3 (0-0.4); EOSINOPHIL % 3.2 % (0.0-4.0); HEMATOCRIT 42.3 % (35.0-46.0); HEMO FLAGS DIFF FINAL; LYMPHOCYTE # 3.4 TH/MM3 (1.0-4.8); MEAN CELL VOLUME 92.1 FL (80.0-100.0); MEAN CORPUSCULAR HEMOGLOBIN 30.2 PG (27.0-34.0); MEAN CORPUSCULAR HGB CONC 32.7 % (32.0-36.0); MONO % 7.6 % (0.0-8.0); NEUT % 48.7 % (16.0-70.0); PLATELET COUNT 267 TH/MM3 (150-450); RED BLOOD COUNT 4.59 MIL/MM3 (4.00-5.30); WHITE BLOOD COUNT 8.5 TH/MM3 (4.0-11.0)
--- NOTE | 2016-09-30 14:26 | PD ---
HPI Chief Complaint: Seizure Time Seen by Provider: 13:42 Travel History International Travel<30 days: No Contact w/Intl Traveler<30days: No Traveled to known affect area: No History of Present Illness HPI This is a 56-year-old female who is well-known to our hospital who presents to the emergency department having had 3 witnessed seizures that lasted 4-5 minutes. With EMS she did not have any seizure activity and on arrival in the emergency department she had another seizure. She doesn't provide any history. She was admitted in August for serial seizures and was discharged ultimately on Keppra and Dilantin. At that time she was intoxicated with alcohol and tested positive for cocaine. PFSH Past Medical History Arthritis: Yes (lower back) Asthma: Yes Blood Disorders: No Bipolar Disorder: Yes Anxiety: No Depression: No Heart Rhythm Problems: No Cancer: Yes (Left and back breast cancer) Cardiovascular Problems: No High Cholesterol: No Chemotherapy: No Chest Pain: No Congestive Heart Failure: No COPD: Yes Cerebrovascular Accident: No Diabetes: No Diminished Hearing: No Endocrine: No Gastrointestinal Disorders: No Genitourinary: No Headaches: Yes Hypertension: Yes Immune Disorder: No Implanted Vascular Access Dvce: No Insomnia: Yes Musculoskeletal: No Neurologic: No Psychiatric: No Reproductive: No Respiratory: Yes Immunizations Current: Yes Migraines: Yes Radiation Therapy: No Seizures: Yes (Onset age 16, denies knowledge as to etiology) Sleep Apnea: No Thyroid Disease: No Tetanus Vaccination: Unknown ?: Unknown Menopausal: Yes : 5 Para: 4 Miscarriage: 1 Ectopic : Yes Past Surgical History Abdominal Surgery: Yes (Exploratory, Trauma ) Cardiac Surgery: No Ear Surgery: No Endocrine Surgery: No Eye Surgery: No Genitourinary Surgery: No Gynecologic Surgery: No Oral Surgery: No Thoracic Surgery: No Other Surgery: Yes (ORIF R FOREARM/ R ANKLE, ABD'L EXPLOR. LAP) Social History Tobacco Use: Yes Substance Use: No Allergies-Medications (Allergen,Severity, Reaction): Coded Allergies: Iodine (Verified Adverse Reaction, Severe, Anaphylaxis, 09/12/16) Penicillin (Verified Adverse Reaction, Severe, Anaphylaxis, 09/12/16) *MDRO Multi-Drug Resistant Organism (Verified Adverse Reaction, Unknown, Cleared, 09/12/16) MRSA PCR (nares) positive - 08/12/15 Cleared - MRSA PCR (nares) nagative on 11/11/15 & 08/24/16 Reported Meds & Prescriptions Reported Meds & Active Scripts Active Cipro (Ciprofloxacin HCl) 500 Mg Tab 500 Mg PO BID 3 Days Ventolin Hfa 18 GM Inh (Albuterol Sulfate) 90 Mcg/Act Aer 2 Puff INH Q4H PRN Dilantin (Phenytoin Extended) 100 Mg Cap 100 Mg PO Q8HR Keppra (Levetiracetam) 1,000 Mg Tab 1,000 Mg PO BID Folate (Folic Acid) 1 Mg Tab 1 Mg PO DAILY Vitamin B-1 (Thiamine HCl) 100 Mg Tab 100 Mg PO DAILY Review of Systems ROS Limitations: Clinical Condition Physical Exam Narrative GENERAL: Disheveled SKIN: Focused skin assessment warm and dry. HEAD: Atraumatic. Normocephalic. EYES: Pupils 3 mm, equal and reactive no injection or drainage. ENT: Moist mucous membranes NECK: Trachea midline. CARDIOVASCULAR: Regular rate and rhythm. No murmur appreciated. RESPIRATORY: Clear to auscultation. Breath sounds equal bilaterally. GASTROINTESTINAL: Abdomen soft, non-tender, nondistended. MUSCULOSKELETAL: No obvious deformities. NEUROLOGICAL: Somnolent, No obvious cranial nerve deficits. Moving all extremities. Data Data Last Documented VS Vital Signs Date Time Temp Pulse Resp B/P Pulse Ox O2 Delivery O2 Flow Rate FiO2 09/30/16 16:01 91 16 127/72 98 Room Air 09/30/16 13:51 15 09/30/16 13:37 97.8 Orders Electrocardiogram (09/30/16 ) Sodium Chlor 0.9% 1000 Ml Inj (Ns 1000 M (09/30/16 13:43) Lorazepam Inj (Ativan Inj) (09/30/16 13:45) Thiamine Inj (Thiamine Inj) (09/30/16 13:45) Complete Blood Count With Diff (09/30/16 13:56) Alcohol (Ethanol) (09/30/16 13:56) Phenytoin (Dilantin) (09/30/16 13:56) Drug Screen, Random Urine (09/30/16 13:56) Ct Brain W/O Iv Contrast(Rout) (09/30/16 ) Blood Glucose (09/30/16 13:56) Ecg Monitoring (09/30/16 13:56) Iv Access Insert/Monitor (09/30/16 13:56) Oximetry (09/30/16 13:56) Comprehensive Metabolic Panel (09/30/16 13:56) Sodium Chlor 0.9% 1000 Ml Inj (Ns 1000 M (09/30/16 13:56) Sodium Chloride 0.9% Flush (Ns Flush) (09/30/16 14:00) Lorazepam Inj (Ativan Inj) (09/30/16 14:00) Ua Includes Microscopic (09/30/16 13:56) Levetiracetam (09/30/16 13:56) Fosphenytoin Inj (Cerebyx Inj) (09/30/16 15:15) Arterial Blood Gas (Abg) (09/30/16 ) Levetiracetam Inj (Keppra Inj) (09/30/16 15:45) Levetiracetam 1000 Mg Inj (Keppra 1000 M (09/30/16 16:00) Labs Laboratory Tests Test 09/30/16 09/30/16 14:00 15:18 White Blood Count 8.5 TH/MM3 Red Blood Count 4.59 MIL/MM3 Hemoglobin 13.9 GM/DL Hematocrit 42.3 % Mean Corpuscular Volume 92.1 FL Mean Corpuscular Hemoglobin 30.2 PG Mean Corpuscular Hemoglobin 32.7 % Concent Red Cell Distribution Width 13.0 % Platelet Count 267 TH/MM3 Mean Platelet Volume 7.2 FL Neutrophils (%) (Auto) 48.7 % Lymphocytes (%) (Auto) 40.0 % Monocytes (%) (Auto) 7.6 % Eosinophils (%) (Auto) 3.2 % Basophils (%) (Auto) 0.5 % Neutrophils # (Auto) 4.1 TH/MM3 Lymphocytes # (Auto) 3.4 TH/MM3 Monocytes # (Auto) 0.6 TH/MM3 Eosinophils # (Auto) 0.3 TH/MM3 Basophils # (Auto) 0.0 TH/MM3 CBC Comment DIFF FINAL Differential Comment Sodium Level 139 MEQ/L Potassium Level 3.9 MEQ/L Chloride Level 105 MEQ/L Carbon Dioxide Level 21.9 MEQ/L Anion Gap 12 MEQ/L Blood Urea Nitrogen 12 MG/DL Creatinine 0.85 MG/DL Estimat Glomerular Filtration 70 ML/MIN Rate Random Glucose 102 MG/DL Calcium Level 9.3 MG/DL Total Bilirubin 0.3 MG/DL Aspartate Amino Transf 27 U/L (AST/SGOT) Alanine Aminotransferase 22 U/L (ALT/SGPT) Alkaline Phosphatase 135 U/L Total Protein 7.9 GM/DL Albumin 4.1 GM/DL Phenytoin (Dilantin) Level 0.6 MCG/ML Ethyl Alcohol Level 4 MG/DL Blood Gas Puncture Site LT RADIAL Blood Gas Patient Temperature 98.6 Blood Gas HCO3 25 mmol/L Blood Gas Base Excess 0.4 mmol/L Blood Gas Oxygen Saturation 90 % Arterial Blood pH 7.41 Arterial Blood Partial 40 mmHg Pressure CO2 Arterial Blood Partial 66 mmHG Pressure O2 Arterial Blood Oxygen Content 16.0 Vol % Arterial Blood 2.1 % Carboxyhemoglobin Arterial Blood Methemoglobin 0.6 % Blood Gas Hemoglobin 12.6 G/DL Oxygen Delivery Device ROOM AIR Blood Gas Inspired Oxygen 21 % [facility] Medical Decision Making Medical Screen Exam Complete: Yes Emergency Medical Condition: Yes Interpretation(s) Afebrile, tachycardic, hypertensive No leukocytosis Electrolytes are reassuring Phenytoin is 0.6 ABG is reassuring Last [address] 09/30/16 0000 Signed Impressions: Service Date/Time: Friday, September 30, 2016 14:54 - CONCLUSION: Stable exam. Small old lacunar infarct head of the right caudate nucleus. No evidence of acute infarct, hemorrhage, mass or edema. Frank Villa MD Differential Diagnosis Seizure, noncompliance, substance intoxication, electrolyte abnormality, intracranial hemorrhage Narrative Course This is a 56-year-old female who presents to the emergency department having had several witnessed seizures at home. She is been hospitalized multiple times for this in the past. Here her phenytoin level is 0.6 despite having a full pill bottle with her. On arrival she was given 2 mg of IV Ativan and 2 g of IM Ativan. She was loaded with Dilantin and Keppra. Labs were reassuring and CT of the head was reassuring. She was awake and alert on reassessment, eager to go home. She has a normal neurologic exam. I don't think this patient would benefit from additional admission to the hospital. She's had 2 long admissions in August. I think his long as she is compliant with her medication she will likely stay seizure free. Patient was discharged home. Diagnosis Primary Impression: Seizure disorder Additional Impression: Noncompliance with medication regimen Patient Instructions: General Instructions Additional Instructions: If you develop severe worsening headache, persistent vomiting, numbness, weakness, difficulty walking or difficulty talking return to the emergency department immediately. Med/Other Pt SpecificInfo: No Change to Meds Disposition: 01 DISCHARGE HOME Condition: Stable Pattie Hammond MD September 30, 2016 14:26
[2016-09-30 14:54] LABS: ANION GAP 12 MEQ/L (5-15); AST (GOT) 27 U/L (15-37); BICARBONATE 21.9 MEQ/L (21.0-32.0); BLOOD UREA NITROGEN 12 MG/DL (7-18); CHLORIDE 105 MEQ/L (98-107); GLOMERULAR FILTRATION RATE 70 ML/MIN (>89); POTASSIUM 3.9 MEQ/L (3.5-5.1); SODIUM (NA) 139 MEQ/L (136-145)
[2016-09-30 14:56] LABS: ALKALINE PHOSPHATASE 135 U/L (45-117); ALT (GPT) 22 U/L (10-53); TOTAL BILIRUBIN ADULT 0.3 MG/DL (0.2-1.0)
--- NOTE | 2016-09-30 15:13 | RADRPT ---
EXAM DATE/TIME: 09/30/2016 14:54 [facility] COMPARISON: CT BRAIN W/O CONTRAST, August 28, 2016, 22:51. INDICATIONS : Altered mental status with seizures. RADIATION DOSE: 31.34 CTDIvol (mGy) MEDICAL HISTORY : Seizures. Carcinoma, breast. SURGICAL HISTORY : None. ENCOUNTER: Initial ACUITY: 1 day PAIN SCALE: 0/10 LOCATION: TECHNIQUE: Multiple contiguous axial images were obtained of the head. Using automated exposure control and adjustment of the mA and/or kV according to patient size, radiation dose was kept as low as reasonably achievable to obtain optimal diagnostic quality images. FINDINGS: CEREBRUM: The ventricles are normal for age. Small old stable lacunar infarcts identified in the head of the right caudate nucleus. No evidence of midline shift, mass lesion, hemorrhage or acute in farction. No extra-axial fluid collections are seen. POSTERIOR FOSSA: The cerebellum and brainstem are intact. The 4th ventricle is midline. The cer ebellopontine angle is unremarkable. EXTRACRANIAL: The visualized portion of the orbits is intact. SKULL: The calvaria is intact. No evidence of skull fracture. CONCLUSION: Stable exam. Small old lacunar infarct head of the right caudate nucleus. No evidence of acute infarct, hemorrhage, mass or edema. Frank Villa MD on September 30, 2016 at 15:10 Board Certified Radiologist. This report was verified electronically.
[2016-09-30] MEDS ORDERED: FOSPHENYTOIN INJ 1,000 MGPE in SODIUM CHLORIDE 0.9% INJ 50 ML IV ONE (15:15)
[2016-09-30 15:28] LABS: BLOOD GAS BASE EXCESS 0.4 mmol/L (-2-2); BLOOD GAS CARBOXYHEMOGLOBIN 2.1 % (0-4); BLOOD GAS HCO3 25 mmol/L (22-26); BLOOD GAS METHEMOGLOBIN 0.6 % (0-2); BLOOD GAS O2 HGB SATURATION 90 % (90-100); BLOOD GAS PCO2 40 mmHg (38-42); BLOOD GAS PO2 66 mmHG (61-120); BLOOD GAS TOTAL HGB 12.6 G/DL (12.0-16.0); TEMP CORR TO 98.6
[2016-09-30 15:29] LABS: CRITICAL VALUE NO; DRAW SITE LT RADIAL; FIO2 21 %; NUMBER OF ARTERIAL PUNCTURES 1; OXYGEN DEVICE ROOM AIR; STAT YES
[2016-09-30] MEDS ORDERED: levETIRAcetam INJ 1,000 MG in SODIUM CHLORIDE 0.9% INJ 100 ML IV ONE (15:45)
[2016-09-30] MEDS ORDERED: levETIRAcetam 1000 MG INJ 100 ML IV ONE (16:00)
[2016-09-30 16:01] VITALS: BP 127/72; PULSE 91; RESP 16; O2SAT 98
[2016-09-30 17:56] VITALS: BP 121/76
--- NOTE | 2016-10-01 13:36 | EKG ---
Date Performed: 09/30/2016 Time Performed: 13:57:07 PTAGE: 56 years EKG: SINUS TACHYCARDIA POSSIBLE RIGHT VENTRICULAR CONDUCTION DELAY Compared to previous tracing, the sinus tachycardia is new. ABNORMAL RHYTHM ECG PREVIOUS TRACING : 09/15/2016 02.00 DOCTOR: Jodi Kaplan Interpretating Date/Time 10/01/2016 13:36:05
[2016-11-10] MEDS ORDERED: HYDR50CA PO (16:00)
[2016-11-10] MEDS ORDERED: AMIT50TA3 PO (16:00)
[2016-11-10] MEDS ORDERED: QUET-88 PO (16:00)
[2016-11-10] MEDS ORDERED: OXCA300T PO (16:00)
[2016-11-10] MEDS ORDERED: GABA300C5 PO (16:37)
== END 2016-09-30 18:50 | disposition home or self-care (01) ==
LOC: NEPE 13:34
DX: R56.9 Unspecified convulsions (principal); R00.0 Tachycardia, unspecified; J45.909 Unspecified asthma, uncomplicated; J44.9 Chronic obstructive pulmonary disease, unspecified; I10 Essential (primary) hypertension; Z91.14 Patient's other noncompliance with medication regimen; Z72.0 Tobacco use
CPT/HCPCS: 36600; 70450; 80053; 80177; 80185; 80307; 82805; 85025; 93005; 96361; 96365; 96372; 96375; 99284; J1953; J2060; J7030; Q2009

== ENCOUNTER 2016-10-01 11:33 | Emergency (ER) | payer OTHER ==
[~2016-10-01] VITALS: Ht 157.5 cm; Wt 50.0 kg
[2016-10-01 11:54] VITALS: BP 126/75; PULSE 92; RESP 20; TEMP 98.1; O2SAT 99
[2016-10-01] MEDS ORDERED: diphenhydrAMINE HCL 50 MG/ML VIAL IM ONE (12:00)
[2016-10-01] MEDS ORDERED: methylPREDNISolone SOD SUCC 125 MG/2 ML VIAL IM SCH (12:00)
--- NOTE | 2016-10-01 12:00 | PD ---
HPI Chief Complaint: Skin Problem Time Seen by Provider: 11:43 Travel History International Travel<30 days: No Contact w/Intl Traveler<30days: No Traveled to known affect area: No History of Present Illness HPI This is a 56-year-old female who has a history of seizure disorder who presents to the emergency department reporting diffuse itching. She was seen in the emergency department by me yesterday for seizures and she was given IV Keppra and load of fosphenytoin. She says ever since the infusion of the Dilantin she' s had burning and itching in her skin, constant, all over, moderate severity. She's had no wheezing or difficulty breathing. She says that she has always done really well just on Keppra and she admits that she was not taking her Keppra as prescribed leading up to the onset of her seizures yesterday. PFSH Past Medical History Arthritis: Yes (lower back) Asthma: Yes Blood Disorders: No Bipolar Disorder: Yes Anxiety: No Depression: No Heart Rhythm Problems: No Cancer: Yes (Left and back breast cancer) Cardiovascular Problems: No High Cholesterol: No Chemotherapy: No Chest Pain: No Congestive Heart Failure: No COPD: Yes Cerebrovascular Accident: No Diabetes: No Diminished Hearing: No Endocrine: No Gastrointestinal Disorders: No Genitourinary: No Headaches: Yes Hypertension: Yes Immune Disorder: No Implanted Vascular Access Dvce: No Insomnia: Yes Musculoskeletal: No Neurologic: No Psychiatric: No Reproductive: No Respiratory: Yes Immunizations Current: Yes Migraines: Yes Radiation Therapy: No Seizures: Yes (Onset age 16, denies knowledge as to etiology) Sleep Apnea: No Thyroid Disease: No Menopausal: Yes : 5 Para: 4 Miscarriage: 1 Ectopic : Yes Past Surgical History Abdominal Surgery: Yes (Exploratory, Trauma ) Cardiac Surgery: No Ear Surgery: No Endocrine Surgery: No Eye Surgery: No Genitourinary Surgery: No Gynecologic Surgery: No Oral Surgery: No Thoracic Surgery: No Other Surgery: Yes (ORIF R FOREARM/ R ANKLE, ABD'L EXPLOR. LAP) Social History Tobacco Use: Yes Substance Use: No Allergies-Medications (Allergen,Severity, Reaction): Coded Allergies: Iodine (Verified Adverse Reaction, Severe, Anaphylaxis, 09/12/16) Penicillin (Verified Adverse Reaction, Severe, Anaphylaxis, 09/12/16) *MDRO Multi-Drug Resistant Organism (Verified Adverse Reaction, Unknown, Cleared, 09/12/16) MRSA PCR (nares) positive - 08/12/15 Cleared - MRSA PCR (nares) nagative on 11/11/15 & 08/24/16 Reported Meds & Prescriptions Reported Meds & Active Scripts Active Cipro (Ciprofloxacin HCl) 500 Mg Tab 500 Mg PO BID 3 Days Ventolin Hfa 18 GM Inh (Albuterol Sulfate) 90 Mcg/Act Aer 2 Puff INH Q4H PRN Dilantin (Phenytoin Extended) 100 Mg Cap 100 Mg PO Q8HR Keppra (Levetiracetam) 1,000 Mg Tab 1,000 Mg PO BID Folate (Folic Acid) 1 Mg Tab 1 Mg PO DAILY Vitamin B-1 (Thiamine HCl) 100 Mg Tab 100 Mg PO DAILY Review of Systems Except as stated in HPI: all other systems reviewed are Neg Physical Exam Narrative GENERAL:Well appearing, no acute distress SKIN: Scattered erythematous excoriated lesions in the bilateral lower extremities with no hives HEAD: Atraumatic. Normocephalic. EYES: Pupils equal and round. No injection or drainage. ENT: Moist mucous membranes NECK: Trachea midline. CARDIOVASCULAR: Regular rate and rhythm. No murmur appreciated. RESPIRATORY: Clear to auscultation. Breath sounds equal bilaterally. GASTROINTESTINAL: Abdomen soft, non-tender, nondistended. MUSCULOSKELETAL: No obvious deformities. NEUROLOGICAL: Awake and alert. No obvious cranial nerve deficits. Moving all extremities. PSYCHIATRIC: Appropriate mood and affect; insight and judgment normal. Data Data Orders Diphenhydramine Inj (Benadryl Inj) (10/01/16 12:00) Methylprednisolone So Succ Inj (Solumedr (10/01/16 12:00) MDM Medical Decision Making Medical Screen Exam Complete: Yes Emergency Medical Condition: Yes Differential Diagnosis Drug reaction, allergic reaction, anaphylaxis Narrative Course This is a 56-year-old female who is well-known to me as I seen her multiple times in the emergency department for refractory seizures. She has a history of substance problems and noncompliance with her seizure medications. I saw her yesterday in the emergency department and her Dilantin level was 0.6. I gave her loads of both fosphenytoin and Keppra. She was able to tell me today that she had not been taking her Keppra as prescribed. Unfortunately her Keppra level is still not back. She says she was doing really well with her seizure control when she was just on Keppra. She would like to discontinue the Dilantin as she thinks it's causing her symptoms today. She does appear to be having a drug reaction. She has no signs of anaphylaxis. She was given IM Benadryl and IM steroids in the emergency Department. I think it's reasonable for her to discontinue Dilantin. She is currently in a treatment program and they are assisting with her medication compliance. I advised her to continue with her Keppra and follow up with a neurologist. Diagnosis Primary Impression: Drug-induced hypersensitivity reaction Qualified Code: T78.40XA - Drug-induced hypersensitivity reaction, initial encounter Patient Instructions: General Instructions Additional Instructions: If you develop shortness of breath, chest pain, or trouble breathing return to the emergency department. Stop taking her Dilantin but continue taking her Keppra as prescribed. Take Benadryl as needed for itching. Med/Other Pt SpecificInfo: Med Stopped (Dilantin) Disposition: 01 DISCHARGE HOME Condition: Stable Pattie Hammond MD October 01, 2016 12:00
[2016-11-10] MEDS ORDERED: QUET-88 PO (16:00)
[2016-11-10] MEDS ORDERED: AMIT50TA3 PO (16:00)
[2016-11-10] MEDS ORDERED: HYDR50CA PO (16:00)
[2016-11-10] MEDS ORDERED: OXCA300T PO (16:00)
[2016-11-10] MEDS ORDERED: GABA300C5 PO (16:37)
== END 2016-10-01 12:47 | disposition home or self-care (01) ==
LOC: NEPD 11:33
DX: L29.9 Pruritus, unspecified (principal); T42.0X5A Adverse effect of hydantoin derivatives, initial encounter; Y92.009 Unspecified place in unspecified non-institutional (private) residence as the place of occurrence of the external cause; J45.909 Unspecified asthma, uncomplicated; J44.9 Chronic obstructive pulmonary disease, unspecified; I10 Essential (primary) hypertension
CPT/HCPCS: 96372; 99283; J1200; J2930

== ENCOUNTER 2016-10-12 17:08 | Emergency (ER) | payer OTHER ==
[~2016-10-12] VITALS: Ht 157.5 cm; Wt 49.5 kg
[2016-10-12 17:09] VITALS: BP 177/104; PULSE 97; RESP 20; TEMP 97.6; O2SAT 99
--- NOTE | 2016-10-12 17:16 | PD ---
Physical Exam Time Seen by Provider: 17:13 Narrative 56yo F c/o neck pain and upper back pain since yesterday. Denies injury. Aslo c/o pressure CUMMINGS. +Numbness and tingling in both hands. Denies IVD use, F, V. Patient seen in triage. VS reviewed. Awaiting bed placement. Data Data Last Documented VS Vital Signs Date Time Temp Pulse Resp B/P Pulse Ox O2 Delivery O2 Flow Rate FiO2 10/12/16 17:09 97.6 97 20 177/104 99 Room Air MDM Supervised Visit with JAYCOB: Beth Thompson October 12, 2016 17:16
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
[2016-10-12] MEDS ORDERED: SODIUM CHLORIDE 0.9% FLUSH 10 ML FLUSH IV FLUSH PRN (18:00)
[2016-10-12] MEDS ORDERED: KETOROLAC TROMETHAMINE 30 MG/ML (IVP) VIAL IVP ONE (18:00)
[2016-10-12] MEDS ORDERED: CYCLOBENZAPRINE HCL 10 MG TAB PO ONE (18:00)
[2016-10-12 18:26] VITALS: O2SAT 97
[2016-10-12 18:34] LABS: AUTOMATED NEUTROPHIL # 3.7 TH/MM3 (1.8-7.7); BASOPHIL % 0.6 % (0.0-2.0); EOSINOPHIL # 0.3 TH/MM3 (0-0.4); EOSINOPHIL % 3.7 % (0.0-4.0); HEMATOCRIT 38.3 % (35.0-46.0); HEMO FLAGS DIFF FINAL; LYMPHOCYTE # 2.7 TH/MM3 (1.0-4.8); MEAN CELL VOLUME 90.1 FL (80.0-100.0); MEAN CORPUSCULAR HEMOGLOBIN 30.2 PG (27.0-34.0); MEAN CORPUSCULAR HGB CONC 33.5 % (32.0-36.0); MONO % 8.3 % (0.0-8.0); NEUT % 50.4 % (16.0-70.0); PLATELET COUNT 245 TH/MM3 (150-450); RED BLOOD COUNT 4.25 MIL/MM3 (4.00-5.30); RED CELL DISTRIBUTION WIDTH 12.5 % (11.6-17.2); WHITE BLOOD COUNT 7.3 TH/MM3 (4.0-11.0)
[2016-10-12 18:42] LABS: BICARBONATE 26.8 MEQ/L (21.0-32.0); POTASSIUM 4.3 MEQ/L (3.5-5.1)
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
[2016-10-12 19:23] VITALS: BP 148/87; PULSE 78; RESP 16; O2SAT 98
--- NOTE | 2016-10-12 19:28 | RADRPT ---
EXAM DATE/TIME: 10/12/2016 19:19 [facility] COMPARISON: No previous studies available for comparison. INDICATIONS : Neck pain after seizure. MEDICAL HISTORY : None. SURGICAL HISTORY : None. ENCOUNTER: Initial ACUITY: 1 day PAIN SCORE: Non-responsive. LOCATION: neck pain. FINDINGS: Five view examination was performed. There is normal alignment and curvature of the vertebral bodies down to the level of C7. No evidence of fracture or subluxation. Vertebral body height is normal. The disc spaces are maintained. The prevertebral soft tissues are of normal thickness. The atlanto -axial articulation is intact. The bony neural foramen are patent bilaterally. CONCLUSION: Severe degenerative changes are noted as above. Rafi Woodward MD on October 12, 2016 at 19:26 Board Certified Radiologist. This report was verified electronically.
--- NOTE | 2016-10-12 20:37 | RADRPT ---
EXAM DATE/TIME: 10/12/2016 20:03 [facility] COMPARISON: MRI CERVICAL SPINE W/O CONTRAST, August 15, 2015, 12:19. INDICATIONS : Left upper extremity weakness and neck pain. MEDICAL HISTORY : Hypertension. SURGICAL HISTORY : Right ankle surgery. ENCOUNTER: Subsequent ACUITY: 2 day PAIN SCORE: 7/10 LOCATION: neck. TECHNIQUE: Multiplanar, multisequence MRI examination of the cervical spine was performed. FINDINGS: Normal alignment. Severe disc space narrowing throughout the cervical spine from C3-4 through C6-7. P rominent associated anterior osteophyte formation greatest at C3-C5. There is diffuse disc desiccatio n. The bone marrow signal intensity is normal. Spinal cord signal intensity is normal. C2-C3: The thecal sac has a normal configuration. There is no evidence of disc herniation or spinal canal s tenosis. The neural foramina are patent bilaterally. C3-C4: Diffuse disc osteophyte complex with severe right, mild left foraminal narrowing and mild canal narro wing. This is stable in C4-C5: Diffuse disc osteophyte complex abuts the cord with moderate canal stenosis. There is severe bilatera l left greater than right foraminal narrowing secondary to uncovertebral hypertrophy, this is stable. C5-C6: Diffuse disc osteophyte complex is noted with mild canal narrowing and uncovertebral hypertrophy with moderate bilateral foraminal stenosis. This is stable. C6-C7: Diffuse disc osteophyte complex with moderate canal narrowing and severe left, moderate right foramin al stenosis secondary to uncovertebral hypertrophy this is stable. C7-T1: The thecal sac has a normal configuration. There is no evidence of disc herniation or spinal canal s tenosis. The neural foramina are patent bilaterally. CONCLUSION: Severe degenerative changes are again seen, and not significantly changed. Rafi Woodward MD on October 12, 2016 at 20:33 Board Certified Radiologist. This report was verified electronically.
[2016-11-10] MEDS ORDERED: OXCA300T PO (16:00)
[2016-11-10] MEDS ORDERED: HYDR50CA PO (16:00)
[2016-11-10] MEDS ORDERED: AMIT50TA3 PO (16:00)
[2016-11-10] MEDS ORDERED: QUET-88 PO (16:00)
[2016-11-10] MEDS ORDERED: GABA300C5 PO (16:37)
== END 2016-10-12 21:23 | disposition home or self-care (01) ==
LOC: NEPD 17:08
DX: M54.12 Radiculopathy, cervical region (principal); J45.909 Unspecified asthma, uncomplicated; I10 Essential (primary) hypertension; Z72.0 Tobacco use
CPT/HCPCS: 72050; 72141; 80048; 85025; 96374; 99285; J1885

== ENCOUNTER → 2016-12-08 | Outpatient (CLI) | payer OTHER ==
[~2016-12-08] MED LIST changes: +ALBUAER3 INH; +AMIT50TA3 PO; -CIPR-9 PO; -DILA100C PO; -FOLI1TAB4 PO; +GABA300C5 PO; +HYDR50CA PO; +OXCA300T PO; +QUET-88 PO; +TRIL300T PO; -VENTAER INH; -VITA100T2 PO
[2016-12-08 11:21] LABS: HDL CHOLESTEROL 62.1 MG/DL (40.0-60.0)
== END ==
LOC: CLAB 10:22
PROVIDERS: ATTEND Family Medicine
DX: M54.12 Radiculopathy, cervical region (principal); G40.909 Epilepsy, unspecified, not intractable, without status epilepticus; Z72.0 Tobacco use
CPT/HCPCS: 36415; 80061; 84443

== ENCOUNTER 2017-01-03 09:00 | Inpatient (IN) | payer OTHER ==
[2017-01-03] VITALS (12 sets, daily range): BP systolic 101–140; BP diastolic 65–98; PULSE 79–98; RESP 14–22; TEMP 97.8–98.8; O2SAT 94–99
[~2017-01-03] VITALS: Ht 157.5 cm; Wt 55.5 kg
[2017-01-03] MEDS ORDERED: LORazepam 2 MG/ML VIAL ONE (09:23)
[2017-01-03] MEDS ORDERED: MIRTA15 PO (09:36)
[2017-01-03] MEDS ORDERED: RISP2TAB2 PO (09:36)
[2017-01-03] MEDS ORDERED: SODIUM CHLOR 0.9% 1000 ML INJ 1,000 ML IV ONE (09:52)
[2017-01-03] MEDS ORDERED: levETIRAcetam 1000 MG INJ 100 ML IV ONE ×2 (10:00→19:15)
[2017-01-03] MEDS ORDERED: SODIUM CHLORIDE 0.9% FLUSH 10 ML FLUSH IVF PRN (10:00)
[2017-01-03] MEDS: LORazepam 2 MG/ML VIAL ONE ×2 (10:16→11:18)
[2017-01-03 10:23] LABS: BASOPHIL % 0.5 % (0.0-2.0); EOSINOPHIL # 0.5 TH/MM3 (0-0.4); EOSINOPHIL % 7.1 % (0.0-4.0); HEMATOCRIT 36.3 % (35.0-46.0); HEMO FLAGS DIFF FINAL; LYMPH % 25.8 % (9.0-44.0); LYMPHOCYTE # 1.7 TH/MM3 (1.0-4.8); MEAN CORPUSCULAR HGB CONC 34.5 % (32.0-36.0); MONO % 7.4 % (0.0-8.0); NEUT % 59.2 % (16.0-70.0); PLATELET COUNT 273 TH/MM3 (150-450); RED BLOOD COUNT 4.17 MIL/MM3 (4.00-5.30); RED CELL DISTRIBUTION WIDTH 12.6 % (11.6-17.2); WHITE BLOOD COUNT 6.8 TH/MM3 (4.0-11.0)
[2017-01-03 10:33] LABS: ALKALINE PHOSPHATASE 115 U/L (45-117); TOTAL BILIRUBIN ADULT 0.3 MG/DL (0.2-1.0)
[2017-01-03 10:43] LABS: ALT (GPT) 28 U/L (10-53); ANION GAP 8 MEQ/L (5-15); AST (GOT) 49 U/L (15-37); BICARBONATE 23.9 MEQ/L (21.0-32.0); BLOOD UREA NITROGEN 12 MG/DL (7-18); CHLORIDE 107 MEQ/L (98-107); GLOMERULAR FILTRATION RATE 73 ML/MIN (>89); SODIUM (NA) 139 MEQ/L (136-145)
[2017-01-03 10:50] LABS: ALCOHOL LESS THAN 3 MG/DL (0-5); POTASSIUM 4.7 MEQ/L (3.5-5.1)
[2017-01-03] MEDS ORDERED: LORazepam 2 MG/ML VIAL IV PUSH ONE (11:00)
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
[2017-01-03] MEDS ORDERED: LORazepam 1 MG TAB PO PRN (12:00)
[2017-01-03] MEDS ORDERED: SODIUM CHLORIDE 0.9% FLUSH 10 ML FLUSH IV FLUSH PRN (12:00)
[2017-01-03] MEDS ORDERED: FLUMAZENIL 0.5 MG/5 ML VIAL IV PUSH PRN (12:00)
[2017-01-03] MEDS ORDERED: MAGNESIUM HYDROXIDE SUSP 30 ML CUP PO PRN (12:00)
[2017-01-03] MEDS ORDERED: SENNOSIDES 8.6 MG TAB PO PRN (12:00)
[2017-01-03] MEDS ORDERED: BISACODYL 10 MG SUPP RECTAL PRN (12:00)
[2017-01-03] MEDS ORDERED: LORazepam 2 MG TAB PO PRN (12:00)
[2017-01-03] MEDS ORDERED: LACTULOSE SYRUP 20 GM/30 ML CUP PO PRN (12:00)
[2017-01-03] MEDS ORDERED: NALOXONE HCL 0.4 MG/ML AMP IV PRN (12:00)
[2017-01-03] MEDS ORDERED: ONDANSETRON HCL 4 MG/2 ML VIAL IVP PRN (12:00)
[2017-01-03] MEDS ORDERED: LORazepam 2 MG/ML VIAL IV PUSH PRN ×4 (12:00)
[2017-01-03] MEDS ORDERED: ACETAMINOPHEN 325 MG TAB PO PRN (12:00)
[2017-01-03] MEDS ORDERED: LORazepam 2 MG/ML VIAL IV PRN (12:15)
[2017-01-03] MEDS: SODIUM CHLOR 0.9% 1000 ML INJ 1,000 ML IV SCH ×2 (12:21→20:40)
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
--- NOTE | 2017-01-03 13:39 | EKG ---
Date Performed: 01/03/2017 Time Performed: 10:13:48 PTAGE: 56 years EKG: Sinus rhythm NORMAL ECG Compared to the PREVIOUS TRACING rate has decreased . PREVIOUS TRACIN09/30/2016 13.57 DOCTOR: Cameron Juarez Interpretating Date/Time 01/03/2017 13:38:20
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
[2017-01-03] MEDS ORDERED: PHENYTOIN SODIUM 100 MG CAP PO SCH (17:30)
[2017-01-03] MEDS ORDERED: FOSPHENYTOIN INJ 1,000 MGPE in SODIUM CHLORIDE 0.9% INJ 50 ML IV ONE ×2 (17:30→19:30)
--- NOTE | 2017-01-03 17:58 | HHI.PR ---
Addendum to Inpatient Note Addendum Reason: Additional Documentation Additional Information S: Gurpreet heard by resident team on overhead page. Did not receive either call or page from call center. Patient is a 56-year-old woman with a history of seizures on Keppra and a history of alcohol use who had a seizure in the elevator as she was being transferred from the emergency department to the [facility]. Patient was noted to be seizing in the hallway by the time we reach the patient. I ordered pulse ox to be placed on the patient as well as IV Ativan. After administration of Ativan, patient seemed to be answering nurse's questions. She denies any chest pain. But she reported some shortness of breath. O: Vitals: O2 sat initially read 89, which arelis to 95% before application of oxygen by nasal cannula. Pulse initially in the 100s. Vitals: Blood pressure 148/87, pulse 95, oxygen saturation 100% on 3 L nasal cannula Gen.: Patient with generalized tonic-clonic seizure, after administration of Ativan, patient seemed to be responding to nurse's questions and wanted information relayed to her daughter HEENT: Mildly dry lips but Moist mucous membranes Cardiovascular: Regular rate and rhythm, normal S1 and S2, no murmurs rubs or gallops Respiratory: Clear to auscultation bilaterally with some transmitted upper airway sounds Abdomen: Patient reports tenderness to palpation diffusely, but she does not wince or withdraw or guard from palpation Extremities: Patient reports pain to palpation of her legs diffusely, but she does not wince or withdraw from palpation A/P: Patient is a 56-year-old woman with a history of seizures on Keppra and a history of alcohol use who had a seizure in the elevator as she was being transferred from the emergency department to the [facility] floor. Patient was noted to be seizing in the hallway by the time we reach the patient. I ordered pulse ox to be placed on the patient as well as IV Ativan. Patient satting 100% on oxygen Patient stopped seizing with administration of Ativan 2 mg IV Instructed nursing staff to call neurologist Dr. Marks and primary Dr. Tanner Per nursing staff, Dr. Marks ordered Cerebyx 1 g IV as well as Keppra [address] Tanner agreed with transfer to ICU for closer monitoring and because nursing staff did not feel comfortable keeping this patient on the floor recently, Glucose 100, electrolytes within normal limits, FSBG >120, per nursing Patient seen and discussed with Dr. Malave. Shekhar Barlow MD R2 Jan 03, 2017 17:58
[2017-01-03] MEDS: levETIRAcetam 500 MG TAB PO SCH (18:35)
[2017-01-03] MEDS: DIVALPROEX SODIUM E.R. 500 MG TAB PO SCH ×2 (19:34→21:00)
[2017-01-03] MEDS: SODIUM CHLORIDE 0.9% FLUSH 10 ML FLUSH IV FLUSH SCH (20:36)
[2017-01-03] MEDS: ACETAMINOPHEN/HYDROcodone 325 MG/5 MG TAB PO PRN (20:48)
[2017-01-03] MEDS: DOCUSATE SODIUM 50 MG/SENNA 8.6 MG TAB PO SCH (20:48)
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
[2017-01-04] VITALS (11 sets, daily range): BP systolic 120–149; BP diastolic 69–84; PULSE 80–100; RESP 13–34; TEMP 97.6–98.8; O2SAT 91–96
[2017-01-04] MEDS: ACETAMINOPHEN/HYDROcodone 325 MG/5 MG TAB PO PRN ×5 (02:41→20:57)
[2017-01-04 05:27] LABS: AUTOMATED NEUTROPHIL # 2.5 TH/MM3 (1.8-7.7); BASOPHIL # 0.1 TH/MM3 (0-0.2); BASOPHIL % 0.9 % (0.0-2.0); EOSINOPHIL # 0.8 TH/MM3 (0-0.4); EOSINOPHIL % 13.1 % (0.0-4.0); HEMATOCRIT 36.1 % (35.0-46.0); HEMO FLAGS DIFF FINAL; LYMPH % 36.2 % (9.0-44.0); LYMPHOCYTE # 2.2 TH/MM3 (1.0-4.8); MEAN CELL VOLUME 87.4 FL (80.0-100.0); MEAN CORPUSCULAR HGB CONC 34.3 % (32.0-36.0); MONO % 7.4 % (0.0-8.0); NEUT % 42.4 % (16.0-70.0); PLATELET COUNT 243 TH/MM3 (150-450); RED BLOOD COUNT 4.13 MIL/MM3 (4.00-5.30); RED CELL DISTRIBUTION WIDTH 12.6 % (11.6-17.2)
[2017-01-04 05:41] LABS: ALT (GPT) 24 U/L (10-53); ANION GAP 7 MEQ/L (5-15); AST (GOT) 22 U/L (15-37); BICARBONATE 23.3 MEQ/L (21.0-32.0); BLOOD UREA NITROGEN 8 MG/DL (7-18); CHLORIDE 112 MEQ/L (98-107); GLOMERULAR FILTRATION RATE 102 ML/MIN (>89); POTASSIUM 4.1 MEQ/L (3.5-5.1); SODIUM (NA) 142 MEQ/L (136-145)
[2017-01-04 05:44] LABS: ALKALINE PHOSPHATASE 103 U/L (45-117); TOTAL BILIRUBIN ADULT 0.3 MG/DL (0.2-1.0)
--- NOTE | 2017-01-04 07:40 | HHI.PR ---
Review/Management Diagnosis/Plan: (1) Epilepsy Plan: depakote, keppra and topamax eeg-pending d/c later today if eeg stable, no active sz's STOP VISTARIL (d/w pt and friend. gets this from darcy leidayonas) TAKE KEPPRA, TOPAMAX, AND DEPAKOTE PRESCRIBED. SHE CAN BE WEANED OFF KEPPRA AND CONTINUED ON TOPAMAX AND DEPAKOTE IN THE FUTURE BY DR. JACKSON s/b d/w of meds depakote should help her bipolar and sz. topamax should help migraines and sz. keppra does not appear to be effective for her no driving d/w pt and friend at length Subjective Subjective Comments recurrent sz's on floor, transferred to icu; no further events. was given ativan cerebryx "can i go home today" friend at bedside No headache No chest pain No dyspnea Active Medications Current Medications Medications (Trade) Dose Ordered Sig/Jesus Route Start Time Stop Time Status Last Admin (NS 1000 ml Inj) 1,000 ml @ 100 mls/hr Q10H IV 01/03/17 11:56 01/03/17 20:40 (NS Flush) 2 ml UNSCH PRN IV FLUSH 01/03/17 12:00 (NS Flush) 2 ml BID IV FLUSH 01/03/17 21:00 (Zofran Inj) 4 mg Q6H PRN IVP 01/03/17 12:00 (Tylenol) 650 mg Q6H PRN PO 01/03/17 12:00 ([place] 5-325 Mg) 1 tab Q6H PRN PO 01/03/17 12:00 01/04/17 06:23 (Narcan Inj) 0.4 mg UNSCH PRN IV 01/03/17 12:00 (Mily-Colace) 1 tab BID PO 01/03/17 21:00 (Milk Of Magnesia Liq) 30 ml Q12H PRN PO 01/03/17 12:00 (Senokot) 17.2 mg Q12H PRN PO 01/03/17 12:00 (Dulcolax Supp) 10 mg DAILY PRN RECTAL 01/03/17 12:00 (Lactulose Liq) 30 ml DAILY PRN PO 01/03/17 12:00 (Romazicon Inj) 0.2 mg Q1M PRN IV PUSH 01/03/17 12:00 (Ativan) 1 mg Q4H PRN PO 01/03/17 12:00 (Ativan Inj) 1 mg Q4H PRN IV PUSH 01/03/17 12:00 (Ativan) 2 mg Q2H PRN PO 01/03/17 12:00 (Ativan Inj) 2 mg Q2H PRN IV PUSH 01/03/17 12:00 01/03/17 21:49 (Ativan Inj) 2 mg Q1H PRN IV PUSH 01/03/17 12:00 (Ativan Inj) 2 mg Q15M PRN IV PUSH 01/03/17 12:00 (Ativan Inj) 2 mg Q10M PRN IV 01/03/17 12:15 (Keppra) 1,000 mg TID PO 01/03/17 18:00 01/03/17 18:35 (Depakote Er) 500 mg BID PO 01/03/17 18:00 01/03/17 19:34 (Folate) 1 mg DAILY PO 01/04/17 09:00 01/09/17 08:59 (Vitamin B1) 100 mg DAILY PO 01/04/17 09:00 (Theragran M Tab) 1 tab DAILY PO 01/04/17 09:00 01/09/17 08:59 Allergies Allergies Coded Allergies iodine (Verified Allergy, Severe, Anaphylaxis, 01/03/17) penicillin G (Verified Allergy, Severe, Anaphylaxis, 01/03/17) potassium iodide (Verified Allergy, Severe, Anaphylaxis, 01/03/17) povidone-iodine (Verified Allergy, Severe, Anaphylaxis, 01/03/17) sodium iodide (Verified Allergy, Severe, Anaphylaxis, 01/03/17) sodium iodide (Verified Allergy, Severe, Anaphylaxis, 01/03/17) *MDRO Multi-Drug Resistant Organism (Verified Adverse Reaction, Unknown, Cleared, 01/03/17) Review of Systems All other ROS: ROS reviewed as documented in chart Exam I&O / VS 01/03/17 01/03/17 01/04/17 15:00 23:00 07:00 Intake Total 1454 ml 542 ml Output Total 750 ml Balance 704 ml 542 ml Intake Oral 420 ml IV Total 1034 ml 542 ml Output Urine Total 750 ml # Voids 2 3 # Bowel Movements 0 Vital Signs Date Time Temp Pulse Resp B/P Pulse Ox O2 Delivery O2 Flow Rate FiO2 01/04/17 06:00 93 01/04/17 04:00 88 01/04/17 04:00 98.1 88 15 124/75 96 01/04/17 02:00 92 01/04/17 00:00 97.7 100 34 120/84 94 01/04/17 00:00 100 01/03/17 22:00 95 01/03/17 20:00 91 01/03/17 20:00 97.8 91 22 125/65 99 01/03/17 18:00 98.8 96 20 132/83 99 01/03/17 16:02 97.8 86 16 138/76 100 01/03/17 16:00 97.8 79 16 102/67 99 Room Air 01/03/17 14:00 98 16 112/98 99 Room Air 2 01/03/17 13:00 94 16 120/69 98 Room Air 2 01/03/17 12:25 97.8 89 16 101/67 99 Room Air 01/03/17 10:06 14 98 Nasal Cannula 2 01/03/17 09:32 98 16 122/77 94 Nasal Cannula 2 01/03/17 09:05 97.8 92 17 140/88 97 General: Alert and Oriented, No acute distress Eye: EOMI Respiratory: Non-labored respirations Neurologic: Alert, Oriented, Normal motor, No focal defects, CN II-XII intact Psychiatric: Cooperative, Appropriate mood & affect, Normal judgement, Non- suicidal Objective Micro and Labs Laboratory Tests Test 01/03/17 01/03/17 01/04/17 09:50 10:28 04:45 White Blood Count 6.8 6.0 Red Blood Count 4.17 4.13 Hemoglobin 12.5 12.4 Hematocrit 36.3 36.1 Mean Corpuscular Volume 87.0 87.4 Mean Corpuscular Hemoglobin 30.0 30.0 Mean Corpuscular Hemoglobin 34.5 34.3 Concent Red Cell Distribution Width 12.6 12.6 Platelet Count 273 243 Mean Platelet Volume 7.3 6.5 Neutrophils (%) (Auto) 59.2 42.4 Lymphocytes (%) (Auto) 25.8 36.2 Monocytes (%) (Auto) 7.4 7.4 Eosinophils (%) (Auto) 7.1 13.1 Basophils (%) (Auto) 0.5 0.9 Neutrophils # (Auto) 4.0 2.5 Lymphocytes # (Auto) 1.7 2.2 Monocytes # (Auto) 0.5 0.4 Eosinophils # (Auto) 0.5 0.8 Basophils # (Auto) 0.0 0.1 CBC Comment DIFF FINAL DIFF FINAL Differential Comment Sodium Level 139 142 Potassium Level 4.7 4.1 Chloride Level 107 112 Carbon Dioxide Level 23.9 23.3 Anion Gap 8 7 Blood Urea Nitrogen 12 8 Creatinine 0.82 0.61 Estimat Glomerular Filtration 73 102 Rate Random Glucose 100 90 Calcium Level 8.6 8.2 Total Bilirubin 0.3 0.3 Aspartate Amino Transf 49 22 (AST/SGOT) Alanine Aminotransferase 28 24 (ALT/SGPT) Alkaline Phosphatase 115 103 Total Protein 7.2 6.6 Albumin 3.5 3.2 Ethyl Alcohol Level LESS THAN 3 Urine Opiates Screen NEG Urine Barbiturates Screen NEG Urine Amphetamines Screen NEG Urine Benzodiazepines Screen NEG Urine Cocaine Screen NEG Urine Cannabinoids Screen NEG Problem Qualifiers (1) Epilepsy: Alden Marks MD Jan 04, 2017 07:40
[2017-01-04] MEDS: SODIUM CHLOR 0.9% 1000 ML INJ 1,000 ML IV SCH ×2 (07:56→17:47)
[2017-01-04] MEDS: SODIUM CHLORIDE 0.9% FLUSH 10 ML FLUSH IV FLUSH SCH ×2 (09:00→20:57)
[2017-01-04] MEDS: FOLIC ACID 1 MG TAB PO SCH (10:17)
[2017-01-04] MEDS: THIAMINE HCL 100 MG TAB PO SCH (10:17)
[2017-01-04] MEDS: MULTIVITAMINS/MINERALS THERAPEUTIC TAB PO SCH (10:17)
[2017-01-04] MEDS: DOCUSATE SODIUM 50 MG/SENNA 8.6 MG TAB PO SCH ×2 (10:17→20:57)
[2017-01-04] MEDS: DIVALPROEX SODIUM E.R. 500 MG TAB PO SCH ×2 (10:17→20:57)
[2017-01-04] MEDS: levETIRAcetam 500 MG TAB PO SCH ×3 (10:17→17:47)
[2017-01-04] MEDS: TOPIRAMATE 25 MG TAB PO SCH ×2 (10:20→20:56)
--- NOTE | 2017-01-04 10:29 | MG ---
cc: DAWIT SLAUGHTER M.D. Lab No: [id number] Date: 01/04/2017 Age: ___ Sex: F Race: __ INDICATIONS Generalized tonic clonic seizure, anxiety. MEDICATIONS 1. Keppra 2. Depakote 3. [place] 4. Ativan DESCRIPTION Diffuse alpha and beta rhythms are noted. A 10 Hz 60 microvolt posterior rhythm is noted bilaterally. There is some asymmetry of the background and a little bit higher amplitudes in the left temporal than the right temporal chains. The patient is noted to be asleep at the beginning of the recording, although it has not quite reached stage II sleep until epoch 60 when there are symmetric sleep spindles noted. Photic stimulation was performed without significant posterior driving. A little bit of phase reversing alpha waves are seen epoch 113 over the left posterior temporal head region on the bipolar montage, not as well appreciated on the transverse montage. No spikes are noted. A phase reversing alpha wave is seen at epoch 138 over T5 and some other rhythms also seen prominent over T5 alpha rhythms. Hyperventilation was performed without significant change in the background. No seizure activity was noted. IMPRESSION There is some slight left posterior temporal lobe changes. No spikes are noted, but a left posterior temporal abnormality should be ruled out. Please see above for further discussion. No prolonged seizure activity is noted here. MD MILADYS Clarke/TANIA /9:58 AM /10:14 AM MYLENE
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
[2017-01-05] VITALS: BP 125/70; PULSE 101; RESP 18; TEMP 98.3; O2SAT 96
[2017-01-05] MEDS: ACETAMINOPHEN/HYDROcodone 325 MG/5 MG TAB PO PRN ×2 (03:14→09:26)
[2017-01-05] MEDS: SODIUM CHLOR 0.9% 1000 ML INJ 1,000 ML IV SCH (03:50)
[2017-01-05 04:00] VITALS: BP 138/79; PULSE 98; RESP 18; TEMP 98.2; O2SAT 94
[2017-01-05 08:00] VITALS: BP 152/86; PULSE 87; RESP 14; TEMP 98.6; O2SAT 95
[2017-01-05] MEDS: DOCUSATE SODIUM 50 MG/SENNA 8.6 MG TAB PO SCH (09:00)
--- NOTE | 2017-01-05 09:20 | HHI.PR ---
Review/Management Diagnosis/Plan: (1) Epilepsy Plan: depakote, keppra and topamax eeg-no active sz d/c today STOP VISTARIL (d/w pt and friend. gets this from darcy cool) TAKE KEPPRA, TOPAMAX, AND DEPAKOTE PRESCRIBED. SHE CAN BE WEANED OFF KEPPRA AND CONTINUED ON TOPAMAX AND DEPAKOTE IN THE FUTURE BY DR. PATIÑO s/b d/w of meds depakote should help her bipolar and sz. topamax should help migraines and sz. keppra does not appear to be effective for her f/u with Dr. Patiño no driving d/w pt , medical Subjective Subjective Comments No acute events reported; no sz's No headache No chest pain No dyspnea Active Medications Current Medications Medications (Trade) Dose Ordered Sig/Jesus Route Start Time Stop Time Status Last Admin (NS 1000 ml Inj) 1,000 ml @ 100 mls/hr Q10H IV 01/03/17 11:56 01/05/17 03:50 (NS Flush) 2 ml UNSCH PRN IV FLUSH 01/03/17 12:00 (NS Flush) 2 ml BID IV FLUSH 01/03/17 21:00 01/04/17 20:57 (Zofran Inj) 4 mg Q6H PRN IVP 01/03/17 12:00 01/04/17 11:50 (Tylenol) 650 mg Q6H PRN PO 01/03/17 12:00 01/04/17 10:38 (Hobson 5-325 Mg) 1 tab Q6H PRN PO 01/03/17 12:00 01/05/17 03:14 (Narcan Inj) 0.4 mg UNSCH PRN IV 01/03/17 12:00 (Mily-Colace) 1 tab BID PO 01/03/17 21:00 01/04/17 20:57 (Milk Of Magnesia Liq) 30 ml Q12H PRN PO 01/03/17 12:00 (Senokot) 17.2 mg Q12H PRN PO 01/03/17 12:00 (Dulcolax Supp) 10 mg DAILY PRN RECTAL 01/03/17 12:00 (Lactulose Liq) 30 ml DAILY PRN PO 01/03/17 12:00 (Romazicon Inj) 0.2 mg Q1M PRN IV PUSH 01/03/17 12:00 (Ativan) 1 mg Q4H PRN PO 01/03/17 12:00 (Ativan Inj) 1 mg Q4H PRN IV PUSH 01/03/17 12:00 (Ativan) 2 mg Q2H PRN PO 01/03/17 12:00 (Ativan Inj) 2 mg Q2H PRN IV PUSH 01/03/17 12:00 01/03/17 21:49 (Ativan Inj) 2 mg Q1H PRN IV PUSH 01/03/17 12:00 (Ativan Inj) 2 mg Q15M PRN IV PUSH 01/03/17 12:00 (Ativan Inj) 2 mg Q10M PRN IV 01/03/17 12:15 (Keppra) 1,000 mg TID PO 01/03/17 18:00 01/04/17 17:47 (Depakote Er) 500 mg BID PO 01/03/17 18:00 01/04/17 20:57 (Folate) 1 mg DAILY PO 01/04/17 09:00 01/09/17 08:59 01/04/17 10:17 (Vitamin B1) 100 mg DAILY PO 01/04/17 09:00 01/04/17 10:17 (Theragran M Tab) 1 tab DAILY PO 01/04/17 09:00 01/09/17 08:59 01/04/17 10:17 (Topamax) 50 mg Q12HR PO 01/04/17 09:00 01/04/17 20:56 Allergies Allergies Coded Allergies iodine (Verified Allergy, Severe, Anaphylaxis, 01/03/17) penicillin G (Verified Allergy, Severe, Anaphylaxis, 01/03/17) potassium iodide (Verified Allergy, Severe, Anaphylaxis, 01/03/17) povidone-iodine (Verified Allergy, Severe, Anaphylaxis, 01/03/17) sodium iodide (Verified Allergy, Severe, Anaphylaxis, 01/03/17) sodium iodide (Verified Allergy, Severe, Anaphylaxis, 01/03/17) *MDRO Multi-Drug Resistant Organism (Verified Adverse Reaction, Unknown, Cleared, 01/03/17) Review of Systems All other ROS: ROS reviewed as documented in chart Exam I&O / VS 01/04/17 01/04/1701/05/17 14:59 22:59 06:59 Intake Total 1286 ml 675 ml Output Total 400 ml Balance 1286 ml 275 ml Intake Oral 240 ml 220 ml IV Total 1046 ml 455 ml Output Urine Total 400 ml # Voids 5 # Bowel Movements 0 0 Vital Signs Date Time Temp Pulse Resp B/P Pulse Ox O2 Delivery O2 Flow Rate FiO2 01/05/17 04:00 98.2 98 18 138/79 94 01/05/17 00:00 98.3 101 18 125/70 96 01/04/17 20:00 97.6 89 20 120/82 95 01/04/17 18:00 98 01/04/17 16:00 98.7 84 14 139/79 94 01/04/17 16:00 84 01/04/17 14:00 84 01/04/17 12:00 98.4 92 22 140/69 93 01/04/17 12:00 92 01/04/17 10:00 84 General: Alert and Oriented, No acute distress Eye: EOMI Respiratory: Non-labored respirations Neurologic: Alert, Oriented, Normal motor, No focal defects, CN II-XII intact Psychiatric: Cooperative, Appropriate mood & affect, Normal judgement, Non- suicidal Problem Qualifiers (1) Epilepsy: Alden Marks MD Jan 05, 2017 09:20
[2017-01-05] MEDS: THIAMINE HCL 100 MG TAB PO SCH (09:25)
[2017-01-05] MEDS: TOPIRAMATE 25 MG TAB PO SCH (09:25)
[2017-01-05] MEDS: FOLIC ACID 1 MG TAB PO SCH (09:25)
[2017-01-05] MEDS: MULTIVITAMINS/MINERALS THERAPEUTIC TAB PO SCH (09:25)
[2017-01-05] MEDS: levETIRAcetam 500 MG TAB PO SCH (09:25)
[2017-01-05] MEDS: DIVALPROEX SODIUM E.R. 500 MG TAB PO SCH (09:25)
[2017-01-05] MEDS: SODIUM CHLORIDE 0.9% FLUSH 10 ML FLUSH IV FLUSH SCH (09:26)
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
[2017-01-05] MEDS ORDERED: LEVE500 PO (09:38)
[2017-01-05] MEDS ORDERED: DEPA500T3 PO (09:38)
[2017-01-05] MEDS ORDERED: TOPA25TA8 PO (09:38)
[2017-02-28] MEDS ORDERED: LEVE500 PO (13:45)
== END 2017-01-05 12:03 | disposition home or self-care (01) | DRG 101 ==
LOC: NEPC 09:00 → NEDA 11:58 → OBSVTOIN 12:01 → N03B 18:00 → N05B 01-04 18:54
PROVIDERS: ADMIT Hospitalist; ATTEND Hospitalist
DX: G40.919 Epilepsy, unspecified, intractable, without status epilepticus (principal); I10 Essential (primary) hypertension; J44.9 Chronic obstructive pulmonary disease, unspecified; J45.909 Unspecified asthma, uncomplicated; F10.20 Alcohol dependence, uncomplicated; Z72.0 Tobacco use; F14.90 Cocaine use, unspecified, uncomplicated; F31.9 Bipolar disorder, unspecified; Z86.73 Personal history of transient ischemic attack (TIA), and cerebral infarction without residual deficits; Z87.820 Personal history of traumatic brain injury
CPT/HCPCS: 70450; 80053; 80164; 80307; 85025; 93005; 95819; 96365; 96375; J1953; J2060; J2405; J7030; P9612; Q2009

== ENCOUNTER 2017-04-18 14:51 | Inpatient (IN) | payer OTHER ==
[~2017-04-18] VITALS: Ht 157.5 cm; Wt 58.0 kg
[~2017-04-18 14:51] MED LIST changes: -ALBUAER3 INH; -AMIT50TA3 PO; +DEPA500T3 PO; -GABA300C5 PO; -HYDR50CA PO; -KEPP10002 PO; +LEVE500 PO; -OXCA300T PO; -QUET-88 PO; +TOPI25 PO; -TRIL300T PO
[2017-04-18 14:56] VITALS: BP 132/78; PULSE 83; RESP 20; O2SAT 100
[2017-04-18] MEDS ORDERED: SODIUM CHLORIDE 0.9% FLUSH 10 ML FLUSH IVF PRN (15:15)
[2017-04-18] MEDS ORDERED: levETIRAcetam 500 MG TAB PO ONE (15:15)
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
[2017-04-18 15:40] LABS: AUTOMATED NEUTROPHIL # 5.8 TH/MM3 (1.8-7.7); BASOPHIL % 0.4 % (0.0-2.0); EOSINOPHIL # 0.1 TH/MM3 (0-0.4); EOSINOPHIL % 1.4 % (0.0-4.0); HEMO FLAGS DIFF FINAL; LYMPH % 28.7 % (9.0-44.0); LYMPHOCYTE # 2.8 TH/MM3 (1.0-4.8); MEAN CELL VOLUME 90.3 FL (80.0-100.0); MEAN CORPUSCULAR HEMOGLOBIN 30.4 PG (27.0-34.0); MEAN CORPUSCULAR HGB CONC 33.7 % (32.0-36.0); MONO % 10.1 % (0.0-8.0); NEUT % 59.4 % (16.0-70.0); PLATELET COUNT 215 TH/MM3 (150-450); RED BLOOD COUNT 3.98 MIL/MM3 (4.00-5.30); WHITE BLOOD COUNT 9.7 TH/MM3 (4.0-11.0)
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
[2017-04-18 15:58] LABS: ALT (GPT) 15 U/L (10-53); ANION GAP 8 MEQ/L (5-15); AST (GOT) 15 U/L (15-37); BICARBONATE 24.1 MEQ/L (21.0-32.0); BLOOD UREA NITROGEN 20 MG/DL (7-18); CHLORIDE 108 MEQ/L (98-107); GLOMERULAR FILTRATION RATE 78 ML/MIN (>89); SODIUM (NA) 140 MEQ/L (136-145)
[2017-04-18 16:01] LABS: ALKALINE PHOSPHATASE 73 U/L (45-117); TOTAL BILIRUBIN ADULT 0.2 MG/DL (0.2-1.0)
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
[2017-04-18 17:24] VITALS: BP 138/90; PULSE 72; RESP 16; O2SAT 97
[2017-04-18] MEDS ORDERED: SODIUM CHLORIDE 0.9% FLUSH 10 ML FLUSH IV FLUSH PRN (17:30)
[2017-04-18] MEDS ORDERED: LORazepam 2 MG/ML VIAL IV PUSH PRN (17:30)
[2017-04-18] MEDS ORDERED: NALOXONE HCL 0.4 MG/ML AMP IV PUSH PRN (17:30)
[2017-04-18] MEDS ORDERED: ONDANSETRON HCL 4 MG/2 ML VIAL IVP PRN (17:30)
[2017-04-18 18:00] VITALS: BP 129/96; PULSE 78; RESP 23; O2SAT 98
[2017-04-18] MEDS ORDERED: levETIRAcetam 500 MG TAB PO SCH (18:00)
[2017-04-18] MEDS: SODIUM CHLOR 0.9% 1000 ML INJ 1,000 ML IV SCH (18:00)
[2017-04-18] MEDS ORDERED: GADODIAMIDE PF 287 MG/ML 10 ML VIAL (for RAD MRI) IV PUSH ONE (19:10)
--- NOTE | 2017-04-18 19:49 | RADRPT ---
EXAM DATE/TIME: 04/18/2017 19:00 [facility] COMPARISON: MRI BRAIN W & W/O CONTRAST, November 12, 2015, 14:08. INDICATIONS : Seizures. CONTRAST: 10 cc Omniscan (gadodiamide) IV MEDICAL HISTORY : Carcinoma, breast. Seizures. Hypertension. TBI. COPD. SURGICAL HISTORY : Right ankle. ENCOUNTER: Subsequent ACUITY: 1 day PAIN SCORE: 3/10 LOCATION: cranial TECHNIQUE: Multiplanar, multisequence MRI of the brain was performed both prior to and following the administrat ion of paramagnetic contrast. FINDINGS: CEREBRUM: The ventricles are normal for age. Areas of high flair abnormality are noted within the frontal lobes . Lacunes in the right basal ganglia again seen and unchanged. No evidence of midline shift, mass les ion, hemorrhage or acute infarction. No extraaxial fluid collections are seen. The pituitary gland and suprasellar cistern are normal in configuration. WHITE MATTER: No significant signal abnormalities are seen in the white matter. POSTERIOR FOSSA: The cerebellum and brainstem are intact. The 4th ventricle is midline. The cerebellopontine angle is unremarkable. The cerebellar tonsils are normal in position. DIFFUSION IMAGING: No focal areas of restricted diffusion are seen. No evidence of acute infarction. EXTRACRANIAL: The visualized portions of the orbits and paranasal sinuses are unremarkable. POST-CONTRAST: No abnormal areas of parenchymal or dural enhancement. No evidence of blood-brain barrier breakdown. CONCLUSION: 1. No acute intracranial abnormalities. 2. The lacunes in the right basal ganglia are unchanged. 3. Areas of high flair abnormality in the frontal lobes bilaterally nonspecific but unchanged. No act phuong enhancement. Yousif Erickson MD on April 18, 2017 at 19:41 Board Certified Radiologist. This report was verified electronically.
[2017-04-18 20:00] VITALS: BP 125/93; PULSE 69; RESP 13; TEMP 98.3; O2SAT 96
[2017-04-18] MEDS: ENOXAPARIN SODIUM 40 MG/0.4 ML SYRINGE SQ SCH (20:56)
[2017-04-18] MEDS: SODIUM CHLORIDE 0.9% FLUSH 10 ML FLUSH IV FLUSH SCH (20:56)
[2017-04-18 22:00] VITALS: PULSE 74
[2017-04-18] MEDS: DIVALPROEX SODIUM E.R. 500 MG TAB PO SCH (22:50)
[2017-04-18] MEDS: TOPIRAMATE 25 MG TAB PO SCH (22:50)
[2017-04-18] MEDS: levETIRAcetam 500 MG TAB PO SCH (22:51)
[2017-04-19] VITALS (19 sets, daily range): BP systolic 90–154; BP diastolic 51–93; PULSE 61–84; RESP 12–36; TEMP 98.1–98.6; O2SAT 84–98
[2017-04-19] MEDS ORDERED: CHLORHEXIDINE GLUCONATE 2 % 1 PACK (2 CLOTHS)(extra cloths) TOPICAL PRN (02:00)
[2017-04-19] MEDS: CHLORHEXIDINE GLUCONATE 2 % 1 PACK (2 CLOTHS)(taper/protocol) TOPICAL SCH (04:00)
[2017-04-19] MEDS: SODIUM CHLOR 0.9% 1000 ML INJ 1,000 ML IV SCH ×3 (05:02→12:24)
--- NOTE | 2017-04-19 05:17 | EKG ---
Date Performed: 04/18/2017 Time Performed: 15:22:46 PTAGE: 56 years EKG: Sinus rhythm POSSIBLE RIGHT VENTRICULAR CONDUCTION DELAY BORDERLINE ECG INTERPRETATION BASED ON A DEFAULT AGE OF 40 YEARS No significant change from prior electrocardiogram. PREVIOUS TRACING : 01/03/2017 10.13 DOCTOR: Cameron Juarez Interpretating Date/Time 04/19/2017 05:15:16
[2017-04-19 06:49] LABS: AUTOMATED NEUTROPHIL # 3.3 TH/MM3 (1.8-7.7); BASOPHIL % 0.6 % (0.0-2.0); EOSINOPHIL # 0.2 TH/MM3 (0-0.4); EOSINOPHIL % 3.2 % (0.0-4.0); HEMATOCRIT 34.8 % (35.0-46.0); HEMO FLAGS DIFF FINAL; LYMPH % 38.4 % (9.0-44.0); LYMPHOCYTE # 2.7 TH/MM3 (1.0-4.8); MEAN CELL VOLUME 91.1 FL (80.0-100.0); MONO % 9.8 % (0.0-8.0); PLATELET COUNT 188 TH/MM3 (150-450); RED BLOOD COUNT 3.82 MIL/MM3 (4.00-5.30); RED CELL DISTRIBUTION WIDTH 13.9 % (11.6-17.2); WHITE BLOOD COUNT 6.9 TH/MM3 (4.0-11.0)
[2017-04-19 07:13] LABS: ANION GAP 6 MEQ/L (5-15); AST (GOT) 17 U/L (15-37); BICARBONATE 23.9 MEQ/L (21.0-32.0); BLOOD UREA NITROGEN 17 MG/DL (7-18); CHLORIDE 108 MEQ/L (98-107); GLOMERULAR FILTRATION RATE 102 ML/MIN (>89); POTASSIUM 3.9 MEQ/L (3.5-5.1); SODIUM (NA) 138 MEQ/L (136-145)
[2017-04-19 07:15] LABS: ALT (GPT) 12 U/L (10-53)
[2017-04-19 07:17] LABS: ALKALINE PHOSPHATASE 66 U/L (45-117); TOTAL BILIRUBIN ADULT 0.5 MG/DL (0.2-1.0)
[2017-04-19] MEDS: levETIRAcetam 500 MG TAB PO SCH ×3 (09:06→18:28)
[2017-04-19] MEDS: TOPIRAMATE 25 MG TAB PO SCH ×2 (09:06→20:44)
[2017-04-19] MEDS: DIVALPROEX SODIUM E.R. 500 MG TAB PO SCH ×2 (09:06→20:44)
[2017-04-19] MEDS: SODIUM CHLORIDE 0.9% FLUSH 10 ML FLUSH IV FLUSH SCH ×2 (09:06→20:44)
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
[2017-04-19] MEDS ORDERED: ACETAMINOPHEN 325 MG TAB PO PRN (11:30)
[2017-04-19] MEDS: NICOTINE 14 MG/24 HR PATCH T-DERMAL SCH (14:00)
--- NOTE | 2017-04-19 16:50 | MG ---
cc: DI CURTIS MD Lab No: Date: 04/19/2017 Age: Sex: F Race: ELECTROENCEPHALOGRAM RECORD NUMBER [id number] DATE OF 1960 HISTORY A 56-year-old with a history of seizure like activity witnessed staring off. Trauma. Dizziness. Migraines. DESCRIPTION A posterior rhythm demonstrates 6-8 Hz activity, 20-50 microvolts with an increased beta frequency on the frontal channels. Attenuation of the background noted with appearance of drowsy state followed by a possibly stage I sleep. Increased beta frequencies. Movement and muscle tension artifact noted. Hyperventilation performed with good effort. No abnormal activity. Reasonable driving with photic stimulation. Single lead EKG showing sinus rhythm. Mild sharply contoured waveforms left parietal region at times. No active seizures. INTERPRETATION Mild nonspecific changes noted above, otherwise stable awake, sleep EEG and slight increase in beta frequencies which may be related to psychotropic medication. Clinical correlation. MD KRYSTYNA Dow/KK /4:04 PM /4:25 PM
[2017-04-19] MEDS ORDERED: ASPIRIN 325 MG/CAFFEINE 40 MG/BUTALBITAL 50 MG CAP PO PRN (17:00)
[2017-04-19] MEDS ORDERED: ACETAMIN 325 MG/BUTALBITAL 50 MG/CAFFEINE 40 MG TAB PO PRN (18:00)
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
[2017-04-19] MEDS: ENOXAPARIN SODIUM 40 MG/0.4 ML SYRINGE SQ SCH (20:44)
[2017-04-19] MEDS ORDERED: REMOVE OLD PATCH T-DERMAL SCH (21:00)
[2017-04-20] VITALS: BP 120/77; PULSE 69; RESP 13; TEMP 98.8; O2SAT 98
[2017-04-20 02:00] VITALS: PULSE 60
[2017-04-20 04:00] VITALS: BP 122/62; PULSE 64; RESP 13; TEMP 98.5; O2SAT 97
[2017-04-20] MEDS: CHLORHEXIDINE GLUCONATE 2 % 1 PACK (2 CLOTHS)(taper/protocol) TOPICAL SCH (04:00)
[2017-04-20] MEDS: SODIUM CHLOR 0.9% 1000 ML INJ 1,000 ML IV SCH (05:50)
[2017-04-20 06:00] VITALS: PULSE 74
[2017-04-20 06:50] LABS: AUTOMATED NEUTROPHIL # 3.2 TH/MM3 (1.8-7.7); BASOPHIL % 0.3 % (0.0-2.0); EOSINOPHIL # 0.3 TH/MM3 (0-0.4); EOSINOPHIL % 3.7 % (0.0-4.0); HEMATOCRIT 36.3 % (35.0-46.0); HEMO FLAGS DIFF FINAL; LYMPH % 40.5 % (9.0-44.0); LYMPHOCYTE # 2.8 TH/MM3 (1.0-4.8); MEAN CELL VOLUME 90.9 FL (80.0-100.0); MEAN CORPUSCULAR HEMOGLOBIN 31.1 PG (27.0-34.0); MEAN CORPUSCULAR HGB CONC 34.2 % (32.0-36.0); MONO % 9.2 % (0.0-8.0); NEUT % 46.3 % (16.0-70.0); PLATELET COUNT 209 TH/MM3 (150-450); RED CELL DISTRIBUTION WIDTH 13.3 % (11.6-17.2); WHITE BLOOD COUNT 6.9 TH/MM3 (4.0-11.0)
--- NOTE | 2017-04-20 07:04 | HHI.DCPOC ---
Discharge Care Plan Diagnosis: (1) Recurrent seizures (2) Seizure disorder Goals to Promote Your Health * To prevent worsening of your condition and complications * To maintain your health at the optimal level Directions to Meet Your Goals Take your medications as prescribed Follow your dietary instruction Follow activity as directed Keep your appointments as scheduled Take your immunizations and boosters as scheduled If your symptoms worsen call your PCP, if no PCP go to Urgent Care Center or Emergency Room Smoking is Dangerous to Your Health. Avoid second hand smoke Call the 24-hour hour crisis hotline for domestic abuse at Laura Roman MD R1 Apr 20, 2017 07:04
[2017-04-20] MEDS ORDERED: TOPI25 PO (07:05)
[2017-04-20 07:08] LABS: ANION GAP 9 MEQ/L (5-15); AST (GOT) 17 U/L (15-37); BICARBONATE 23.6 MEQ/L (21.0-32.0); BLOOD UREA NITROGEN 15 MG/DL (7-18); CHLORIDE 108 MEQ/L (98-107); GLOMERULAR FILTRATION RATE 95 ML/MIN (>89); MAGNESIUM 1.9 MG/DL (1.5-2.5); POTASSIUM 3.7 MEQ/L (3.5-5.1); SODIUM (NA) 141 MEQ/L (136-145)
[2017-04-20 07:10] LABS: ALT (GPT) 13 U/L (10-53)
[2017-04-20 07:11] LABS: ALKALINE PHOSPHATASE 72 U/L (45-117); TOTAL BILIRUBIN ADULT 0.4 MG/DL (0.2-1.0)
[2017-04-20 08:00] VITALS: BP 128/77; PULSE 73; RESP 19; TEMP 97.6; O2SAT 95
[2017-04-20] MEDS: TOPIRAMATE 25 MG TAB PO SCH (08:38)
[2017-04-20] MEDS: levETIRAcetam 500 MG TAB PO SCH (08:38)
[2017-04-20] MEDS: NICOTINE 14 MG/24 HR PATCH T-DERMAL SCH (08:39)
[2017-04-20] MEDS: SODIUM CHLORIDE 0.9% FLUSH 10 ML FLUSH IV FLUSH SCH (08:39)
[2017-04-20] MEDS: DIVALPROEX SODIUM E.R. 500 MG TAB PO SCH (08:39)
--- NOTE | 2017-04-20 09:39 | HHI.FPPN ---
Subjective Remarks No acute events overnight. Afebrile, vital stable. Patient denies any confusion , focal neuro symptoms. Denying numbness, tingling, weakness of any extremity. She does have complaints of left shoulder pain/discomfort which she states she believes has been there for about 1 week. She is unsure if she has had any falls to the area. She denies neck pain or radicular symptoms through her left arm. Tolerating diet well. Denies fevers or chills, chest pain, shortness of breath. Objective Vitals Vital Signs Date Time Temp Pulse Resp B/P (MAP) Pulse Ox O2 Delivery O2 Flow Rate FiO2 04/20/17 08:00 73 04/20/17 06:00 74 04/20/17 04:00 64 04/20/17 04:00 98.5 64 13 122/62 (82) 97 04/20/17 02:00 60 04/20/17 00:00 69 04/20/17 00:00 98.8 69 13 120/77 (91) 98 04/19/17 22:00 74 04/19/17 20:00 77 04/19/17 20:00 98.4 77 24 154/70 (98) 96 04/19/17 18:00 84 04/19/17 16:00 82 04/19/17 16:00 98.6 82 27 150/89 (109) 97 04/19/17 15:04 79 27 137/86 (103) 97 04/19/17 14:08 82 36 150/88 (108) 95 04/19/17 14:00 80 04/19/17 13:00 78 16 131/72 (91) 97 04/19/17 12:00 78 04/19/17 12:00 98.3 78 16 123/71 (88) 95 04/19/17 11:00 82 33 112/93 (99) 94 04/19/17 10:00 76 04/19/17 10:00 76 13 126/75 (92) 98 I/O 04/19/17 04/19/17 04/19/17 04/20/17 04/20/17 04/20/17 07:00 15:00 23:00 07:00 15:00 23:00 Intake Total 1964 ml 335 ml 1574 ml 1478 ml Output Total 300 ml 550 ml Balance 1964 ml 35 ml 1024 ml 1478 ml Intake Oral 240 ml 700 ml 500 ml IV Total 1724 ml 335 ml 874 ml 978 ml Output Urine Total 300 ml 550 ml # Voids 1 1 3 5 Result Diagram: 04/20/1753104/20/17531 Objective Remarks GENERAL: NAD, lying comfortably in bed eating breakfast NEURO: Alert. Normal speech. photo optics technician intact. SKIN: Warm and dry. No rashes or erythema. HEAD: Normocephalic. Atraumatic. EYES: Right eye slightly more dilated compared to left eye. Both eyes are reactive. EOMI. No scleral icterus. No injection or drainage. ENT: No nasal drainage. Moist mucous membranes. No oral ulcers or lesions. NECK: Supple, trachea midline. No JVD or lymphadenopathy. No carotid bruits. CARDIOVASCULAR: Regular rate and rhythm without murmurs, rubs, or gallops. Peripheral pulses 2+. RESPIRATORY: Breath sounds clear to auscultation and equal bilaterally, without wheezes, rales, or rhonchi. No accessory muscle use. GASTROINTESTINAL: Abdomen soft, nontender, nondistended MUSCULOSKELETAL: No lower extremity edema. A/P Assessment and Plan 56-year-old female admitted for further evaluation due to recurrent seizures. Discharge Planning Stable for discharge today Informed patient of the need to establish and follow up with a neurologist Problem List: (1) Recurrent seizures ICD Codes: G40.909 - Epilepsy, unspecified, not intractable, without status epilepticus Status: Acute Plan: Patient seems to be having recurrent absence seizures, vs pseudoseizures , other seizure disorder, hypoglycemia, or possible substance abuse - Topamax increased to 100 mg q12h per neurology recommendations Continue other home anticonvulsants as follows: - Depakote 500 mg bid - Keppra 1000 mg tid Neurology consulted, appreciate recommendations MRI brain nonacute EEG showing mild nonspecific changes, slight increase in beta frequencies may be related to psychotropic medications, no active seizures Seizure precautions Head of bed elevated to 30 (2) Nutrition, metabolism, and development symptoms ICD Codes: R63.8 - Other symptoms and signs concerning food and fluid intake Status: Acute Plan: Fluids: PO Electrolytes: WNL Nutrition: Regular DVT ppx: Lovenox 40 mg sq q24h Khurram Jefferson MD R2 Apr 20, 2017 09:39
[2017-04-20] MEDS ORDERED: DIAS12.5 RECTAL (09:44)
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
== END 2017-04-20 10:30 | disposition home or self-care (01) | DRG 101 ==
LOC: NEPE 14:51 → NEDA 16:25 → INTOOBSV 16:25 → OBSVTOIN 16:40 → HIME 17:35
PROVIDERS: ADMIT Family Medicine; ATTEND Family Medicine
DX: G40.909 Epilepsy, unspecified, not intractable, without status epilepticus (principal); I10 Essential (primary) hypertension; J44.9 Chronic obstructive pulmonary disease, unspecified; F17.210 Nicotine dependence, cigarettes, uncomplicated; F41.9 Anxiety disorder, unspecified; Z87.820 Personal history of traumatic brain injury; M25.512 Pain in left shoulder
CPT/HCPCS: 70450; 70553; 80053; 80164; 80307; 82948; 83735; 85025; 87641; 93005; 95819; A9579; J1650; J2060; J7030

== ENCOUNTER 2017-06-13 12:43 | Emergency (ER) | payer OTHER ==
[~2017-06-13] VITALS: Ht 152.4 cm; Wt 50.0 kg
[~2017-06-13 12:43] MED LIST changes: +DIAS12.5 RECTAL
[2017-06-13 12:46] VITALS: BP 120/78; PULSE 82; RESP 13; TEMP 98.8; O2SAT 98
--- NOTE | 2017-06-13 14:07 | RADRPT ---
EXAM DATE/TIME: 06/13/2017 13:44 [facility] COMPARISON: No previous studies available for comparison. INDICATIONS : Chest pain, and left arm pain. MEDICAL HISTORY : Chronic obstructive pulmonary disease. Epilepsy SURGICAL HISTORY : None. ENCOUNTER: Initial ACUITY: 2 days PAIN SCORE: 9/10 LOCATION: Bilateral chest FINDINGS: PA and lateral views of the chest demonstrate the lungs to be symmetrically aerated without evidence of mass, infiltrate or effusion. The cardiomediastinal contours are unremarkable. Osseous structure s are intact. CONCLUSION: 1. No acute cardiopulmonary disease. Zhou Matta MD on June 13, 2017 at 14:05 Board Certified Radiologist. This report was verified electronically.
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
[2017-06-13 14:56] LABS: AUTOMATED NEUTROPHIL # 2.9 TH/MM3 (1.8-7.7); BASOPHIL % 0.3 % (0.0-2.0); EOSINOPHIL # 0.2 TH/MM3 (0-0.4); EOSINOPHIL % 2.8 % (0.0-4.0); HEMOGLOBIN 13.6 GM/DL (11.6-15.3); LYMPH % 41.8 % (9.0-44.0); LYMPHOCYTE # 2.5 TH/MM3 (1.0-4.8); MEAN CELL VOLUME 93.8 FL (80.0-100.0); MEAN CORPUSCULAR HEMOGLOBIN 31.8 PG (27.0-34.0); MEAN CORPUSCULAR HGB CONC 33.9 % (32.0-36.0); MEAN PLATELET VOLUME 7.9 FL (7.0-11.0); MONO % 7.2 % (0.0-8.0); MONOCYTE # 0.4 TH/MM3 (0-0.9); NEUT % 47.9 % (16.0-70.0); PLATELET COUNT 160 TH/MM3 (150-450); RED BLOOD COUNT 4.27 MIL/MM3 (4.00-5.30); RED CELL DISTRIBUTION WIDTH 13.3 % (11.6-17.2)
[2017-06-13 15:07] LABS: PROTHROMBIN TIME - PATIENT 10.6 SEC (9.8-11.6)
--- NOTE | 2017-06-13 15:26 | RADRPT ---
EXAM DATE/TIME: 06/13/2017 14:54 [facility] COMPARISON: CT BRAIN W/O CONTRAST, April 18, 2017, 15:43. INDICATIONS : Transient ishemic attack, left sided chest and arm pain RADIATION DOSE: 56.35 CTDIvol (mGy) MEDICAL HISTORY : Chronic obstructive pulmonary disease. Metastatic, breast. SURGICAL HISTORY : None. ENCOUNTER: Initial ACUITY: 1 day PAIN SCALE: 8/10 LOCATION: cranial TECHNIQUE: Multiple contiguous axial images were obtained of the head. Using automated exposure control and adj ustment of the mA and/or kV according to patient size, radiation dose was kept as low as reasonably a chievable to obtain optimal diagnostic quality images. DICOM format image data is available electro nically for review and comparison. FINDINGS: CEREBRUM: Mild diffuse to atrophy. Redemonstration of lacunar infarct in the right caudate head. The ventricles are normal for age. No evidence of midline shift, mass lesion, hemorrhage or acute infarction. No extra-axial fluid collections are seen. POSTERIOR FOSSA: The cerebellum and brainstem are intact. The 4th ventricle is midline. The cerebellopontine angle i s unremarkable. EXTRACRANIAL: The visualized portion of the orbits is intact. Partially imaged small mucus retention cyst in the le ft maxillary sinus. SKULL: The calvaria is intact. No evidence of skull fracture. CONCLUSION: 1. Stable senescent changes with old right caudate lacunar infarct. 2. No acute intracranial abnormality. 1. Zhou Matta MD on June 13, 2017 at 15:22 Board Certified Radiologist. This report was verified electronically.
[2017-06-13 17:37] LABS: BICARBONATE 23.9 MEQ/L (21.0-32.0); BLOOD UREA NITROGEN 20 MG/DL (7-18); CALCIUM 7.9 MG/DL (8.5-10.1); CHLORIDE 113 MEQ/L (98-107); CREATININE 0.69 MG/DL (0.50-1.00); GLOMERULAR FILTRATION RATE 89 ML/MIN (>89); GLUCOSE,RANDOM 86 MG/DL (74-106); MAGNESIUM 2.1 MG/DL (1.5-2.5); SODIUM (NA) 143 MEQ/L (136-145); TROPONIN I LESS THAN 0.02 NG/ML (0.02-0.05)
--- NOTE | 2017-06-13 21:36 | EKG ---
Date Performed: 06/13/2017 Time Performed: 13:36:42 PTAGE: 56 years EKG: Sinus rhythm POSSIBLE RIGHT VENTRICULAR CONDUCTION DELAY BORDERLINE ECG PREVIOUS TRACING : 04/18/2017 15.22 Since previous tracing, no significant change noted DOCTOR: Gardenia Valverde Interpretating Date/Time 06/13/2017 21:35:54
== END 2017-06-13 18:34 | disposition home or self-care (01) ==
LOC: NEPE 12:43
DX: G40.909 Epilepsy, unspecified, not intractable, without status epilepticus (principal); J44.9 Chronic obstructive pulmonary disease, unspecified; F31.9 Bipolar disorder, unspecified; I10 Essential (primary) hypertension; R94.31 Abnormal electrocardiogram [ECG] [EKG]; F17.200 Nicotine dependence, unspecified, uncomplicated; Z86.73 Personal history of transient ischemic attack (TIA), and cerebral infarction without residual deficits; Z85.3 Personal history of malignant neoplasm of breast
CPT/HCPCS: 70450; 71046; 80048; 80164; 82550; 83735; 84484; 85025; 85610; 85730; 93005; 99285

== ENCOUNTER 2017-07-06 13:39 | Emergency (ER) | payer OTHER ==
[~2017-07-06] VITALS: Ht 152.4 cm; Wt 50.0 kg
[2017-07-06 13:40] VITALS: BP 149/68; PULSE 75; RESP 16; TEMP 98.4; O2SAT 97
[2017-07-06] MEDS ORDERED: LIDOCAINE 1%/EPINEPHrine 1:100,000 SOLN 20 ML VIAL INFIL ONE ×2 (15:15)
[2017-07-06] MEDS ORDERED: LIDOCAINE 1%/EPINEPHrine 1:100,000 SOLN 30 ML VIAL INFIL ONE (15:15)
--- NOTE | 2017-07-06 15:39 | PD ---
Physical Exam Date Seen by Provider: Jul 06, 2017 Time Seen by Provider: 15:37 Data Data Last Documented VS Vital Signs Date Time Temp Pulse Resp B/P (MAP) Pulse Ox O2 Delivery O2 Flow Rate FiO2 07/06/17 13:40 98.4 75 16 149/68 (95) 97 Orders Orders Lidocai-Epi 1%-1:100,000 Inj (Xylocaine- (07/06/17 15:15) Lidocai-Epi 1%-1:100,000 Inj (Xylocaine- (07/06/17 15:15) MDM Supervised Visit with JAYCOB: No Narrative Course I was asked to evaluate this patient's abdominal wall abscess The patient was initially seen by Dr. Ohara. Please see his note for full H& P. On my exam there is an indurated area in the right upper quadrant abdominal wall which measures about 2 cm cm in diameter. It is fluctuant but there is no pointing or drainage. There is a zone of inflammation around it but no lymphangitis.. Abscess I&D was performed. Please see my procedure note for details. Dr. Ohara retains care of this patient. Please see his note for disposition. Procedures Procedure Narrative INCISION AND DRAINAGE OF ABSCESS: The area was prepped and was sterilely draped. A subcutaneous wheal of 1% Xylocaine with a total number 3 mL was used to anesthetize the area properly. A number 11 scalpel was used to make a 1 -cm incision across the area of the abscess. The abscess was drained, complex loculations were broken down, and irrigated with normal saline. Cultures were obtained. Sterile dressing applied. Patient tolerated the procedure well. Nohemi Fitch Jul 06, 2017 15:39
[2017-07-06] MEDS ORDERED: BACT800T5 PO (15:56)
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
== END 2017-07-06 16:22 | disposition home or self-care (01) ==
LOC: NEPE 13:39
DX: L02.211 Cutaneous abscess of abdominal wall (principal); I10 Essential (primary) hypertension; F17.210 Nicotine dependence, cigarettes, uncomplicated; Z88.0 Allergy status to penicillin
CPT/HCPCS: 10060

== ENCOUNTER 2017-09-09 01:54 | Emergency (ER) | payer OTHER ==
[~2017-09-09] VITALS: Ht 162.6 cm; Wt 70.0 kg
[~2017-09-09 01:54] MED LIST changes: +BACT800T5 PO
[2017-09-09 01:59] VITALS: BP 137/87; PULSE 86; RESP 14; TEMP 97.8; O2SAT 98
[2017-09-09] MEDS ORDERED: SODIUM CHLORIDE 0.9% FLUSH 10 ML FLUSH IVF PRN (02:00)
[2017-09-09 02:04] VITALS: O2SAT 98
[2017-09-09 02:40] LABS: AUTOMATED NEUTROPHIL # 3.7 TH/MM3 (1.8-7.7); BASOPHIL % 0.4 % (0.0-2.0); EOSINOPHIL # 0.2 TH/MM3 (0-0.4); EOSINOPHIL % 3.1 % (0.0-4.0); HEMATOCRIT 38.5 % (35.0-46.0); HEMOGLOBIN 13.2 GM/DL (11.6-15.3); LYMPH % 42.3 % (9.0-44.0); LYMPHOCYTE # 3.2 TH/MM3 (1.0-4.8); MEAN CORPUSCULAR HEMOGLOBIN 31.5 PG (27.0-34.0); MEAN CORPUSCULAR HGB CONC 34.3 % (32.0-36.0); MEAN PLATELET VOLUME 6.7 FL (7.0-11.0); MONO % 5.6 % (0.0-8.0); MONOCYTE # 0.4 TH/MM3 (0-0.9); NEUT % 48.6 % (16.0-70.0); PLATELET COUNT 252 TH/MM3 (150-450); RED BLOOD COUNT 4.18 MIL/MM3 (4.00-5.30); RED CELL DISTRIBUTION WIDTH 13.2 % (11.6-17.2); WHITE BLOOD COUNT 7.5 TH/MM3 (4.0-11.0)
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
[2017-09-09 02:54] LABS: ALKALINE PHOSPHATASE 92 U/L (45-117); TOTAL BILIRUBIN ADULT 0.1 MG/DL (0.2-1.0); TOTAL PROTEIN 7.4 GM/DL (6.4-8.2)
[2017-09-09 02:59] LABS: ALT (GPT) 21 U/L (10-53); AST (GOT) 22 U/L (15-37); BICARBONATE 24.9 MEQ/L (21.0-32.0); BLOOD UREA NITROGEN 14 MG/DL (7-18); CALCIUM 8.4 MG/DL (8.5-10.1); CHLORIDE 109 MEQ/L (98-107); CREATININE 0.76 MG/DL (0.50-1.00); GLOMERULAR FILTRATION RATE 79 ML/MIN (>89); GLUCOSE,RANDOM 87 MG/DL (74-106); SODIUM (NA) 143 MEQ/L (136-145)
== END 2017-09-09 03:47 | disposition home or self-care (01) ==
LOC: NEPE 01:54
DX: R41.82 Altered mental status, unspecified (principal); R56.9 Unspecified convulsions; I10 Essential (primary) hypertension; J44.9 Chronic obstructive pulmonary disease, unspecified; F31.9 Bipolar disorder, unspecified; F17.210 Nicotine dependence, cigarettes, uncomplicated; Z85.3 Personal history of malignant neoplasm of breast; Z86.73 Personal history of transient ischemic attack (TIA), and cerebral infarction without residual deficits; Z88.0 Allergy status to penicillin; Z88.8 Allergy status to other drugs, medicaments and biological substances; Z79.899 Other long term (current) drug therapy
CPT/HCPCS: 80053; 80307; 83690; 85025; 99283

== ENCOUNTER 2017-11-12 02:56 | Emergency (ER) | payer SELFPAY ==
[~2017-11-12] VITALS: Ht 160 cm; Wt 56.0 kg
[2017-11-12 03:01] VITALS: BP 124/89; PULSE 83; RESP 20; TEMP 98.2; O2SAT 95
[2017-11-12 03:14] VITALS: RESP 18; O2SAT 96
[2017-11-12] MEDS ORDERED: SODIUM CHLORIDE 0.9% FLUSH 10 ML FLUSH IVF PRN (03:15)
[2017-11-12] MEDS ORDERED: levETIRAcetam INJ 500 MG in SODIUM CHLORIDE 0.9% INJ 100 ML IV ONE (03:15)
[2017-11-12 03:34] LABS: AUTOMATED NEUTROPHIL # 3.5 TH/MM3 (1.8-7.7); BASOPHIL % 0.5 % (0.0-2.0); EOSINOPHIL # 0.1 TH/MM3 (0-0.4); HEMATOCRIT 37.3 % (35.0-46.0); HEMOGLOBIN 13.3 GM/DL (11.6-15.3); LYMPH % 41.9 % (9.0-44.0); LYMPHOCYTE # 2.9 TH/MM3 (1.0-4.8); MEAN CELL VOLUME 91.4 FL (80.0-100.0); MEAN CORPUSCULAR HEMOGLOBIN 32.7 PG (27.0-34.0); MEAN CORPUSCULAR HGB CONC 35.7 % (32.0-36.0); MEAN PLATELET VOLUME 6.7 FL (7.0-11.0); MONO % 6.6 % (0.0-8.0); MONOCYTE # 0.5 TH/MM3 (0-0.9); PLATELET COUNT 259 TH/MM3 (150-450); RED BLOOD COUNT 4.08 MIL/MM3 (4.00-5.30); RED CELL DISTRIBUTION WIDTH 12.7 % (11.6-17.2)
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
[2017-11-12 04:00] LABS: ALBUMIN 4.1 GM/DL (3.4-5.0); ALT (GPT) 21 U/L (10-53); AST (GOT) 17 U/L (15-37); BICARBONATE 21.9 MEQ/L (21.0-32.0); BLOOD UREA NITROGEN 7 MG/DL (7-18); CALCIUM 8.2 MG/DL (8.5-10.1); CHLORIDE 112 MEQ/L (98-107); CREATININE 0.77 MG/DL (0.50-1.00); GLOMERULAR FILTRATION RATE 78 ML/MIN (>89); GLUCOSE,RANDOM 111 MG/DL (74-106); SODIUM (NA) 145 MEQ/L (136-145)
[2017-11-12 04:02] LABS: ALKALINE PHOSPHATASE 101 U/L (45-117); TOTAL BILIRUBIN ADULT 0.3 MG/DL (0.2-1.0); TOTAL PROTEIN 7.5 GM/DL (6.4-8.2)
[2017-11-12] MEDS ORDERED: DIVALPROEX SODIUM E.R. 500 MG TAB PO ONE (04:15)
--- NOTE | 2017-11-12 13:43 | EKG ---
Date Performed: 11/12/2017 Time Performed: 02:59:00 PTAGE: 57 years EKG: Sinus rhythm NORMAL ECG Since PREVIOUS TRACING , no significant change noted PREVIOUS TRACIN06/13/2017 13.36 DOCTOR: Phillip Brock Interpretating Date/Time 11/12/2017 13:41:39
== END 2017-11-12 07:07 | disposition home or self-care (01) ==
LOC: NEPC 02:56
DX: G40.909 Epilepsy, unspecified, not intractable, without status epilepticus (principal); F10.929 Alcohol use, unspecified with intoxication, unspecified; F41.9 Anxiety disorder, unspecified; I10 Essential (primary) hypertension; J45.909 Unspecified asthma, uncomplicated; Z88.0 Allergy status to penicillin
CPT/HCPCS: 70450; 80053; 80164; 80307; 85025; 93005; 96365; 99285; J1953

== ENCOUNTER 2018-01-24 10:13 | Inpatient (IN) ==
--- NOTE | 2018-01-24 12:20 | XR ---
EXAM DATE: 01/24/2018 12:07 PM EDT AGE/SEX: 57 years / Female INDICATIONS: Short of breath. CLINICAL DATA: This is the patient's initial encounter. Patient reports that signs and symptoms have been present for 1 week and indicates a pain score of 9/10. MEDICAL/SURGICAL HISTORY: . asthma, smokes None. COMPARISON: [facility] [place], 12/23/2017. . FINDINGS: A single AP view of the chest demonstrates the lungs to be symmetrically aerated without evidence of mass, infiltrate or effusion. The cardiomediastinal contours are unremarkable. Osseous structures a re intact. Hyperinflation. CONCLUSION: Hyperinflation. Electronically signed by: Rafi Woodward MD 01/24/2018 12:18 PM EDT
[2018-01-24 12:38] LABS: Baso % (Auto) 0.2 % (0.0-2.0); Eos # (Auto) 0.1 th/mm3 (0.0-0.4); Eos % (Auto) 1.2 % (0.0-4.0); Hematocrit 42.7 % (35.0-46.0); Hemoglobin 14.5 gm/dL (11.6-15.3); Lymph # (Auto) 1.6 th/mm3 (1.0-4.8); Lymph % (Auto) 19.9 % (9.0-44.0); Mean Corpuscular HGB Conc 33.8 % (32.0-36.0); Mean Corpuscular Hemoglobin 31.1 pg (27.0-34.0); Mean Corpuscular Volume 91.9 fL (80.0-100.0); Mean Platelet Volume 7.4 fL (7.0-11.0); Mono # (Auto) 0.3 th/mm3 (0.0-0.9); Mono % (Auto) 3.4 % (0.0-8.0); Neut # (Auto) 5.9 th/mm3 (1.8-7.7); Neut % (Auto) 75.3 % (16.0-70.0); Platelet Count 285 th/mm3 (150-450); Red Blood Count 4.65 mil/mm3 (4.00-5.30); White Blood Count 7.8 th/mm3 (4.0-11.0)
[2018-01-24 12:52] LABS: Albumin 3.9 g/dL (3.4-5.0); Anion Gap 10 meq/L (5-15); Aspartate Aminotransferase 35 U/L (15-37); Blood Urea Nitrogen 12 mg/dL (7-18); Calcium 8.9 mg/dL (8.5-10.1); Carbon Dioxide 26.2 meq/L (21.0-32.0); Chloride 107 meq/L (98-107); Glomerular Filtration Rate Greater Than 89 mL/min (>89); Glucose,Random 156 mg/dL (74-106); Potassium 3.6 meq/L (3.5-5.1); Sodium 143 meq/L (136-145)
[2018-01-24 12:56] LABS: Alanine Aminotransferase 34 U/L (10-53); Alkaline Phosphatase 115 U/L (45-117); Total Protein 7.6 g/dL (6.4-8.2)
--- NOTE | 2018-01-24 13:15 | ED ---
HPI General Stated complaint: SOB Time Seen by Provider: 01/24/18 10:46 Source: patient Mode of arrival: EMS Limitations: no limitations History of Present Illness HPI narrative: Patient is a 57 year old female who comes in complaining of shortness of breath. She has history of COPD and is trying to quit smoking. She says this has been going on for the past week. She was seen at a hospital in [facility] and discharged with prescription for Albuterol and Prednisone. She says she took all of the Prednisone, but is unable to afford the Albuterol. She says she went to [facility] today, who is trying to help her get her inhaler, but she couldn't breath, so they sent her here. She says she never really felt better. She smoked one cigarette today. She says her chest feels tight and she has pain when she coughs. She denies fever or chills. She denies nausea or vomiting. Severity is moderate. Related Data Home Medications Medication Instructions Recorded Confirmed Kehiramra 01/24/18 Latuda 01/24/18 gabapentin 01/24/18 Allergies Allergy/AdvReac Type Severity Reaction Status Date / Time iodine Allergy Severe Anaphylaxis Verified 01/24/18 11:23 penicillin G Allergy Severe Anaphylaxis Verified 01/24/18 11:23 phenytoin Allergy Severe BODY ON Verified 01/24/18 11:23 FIRE potassium iodide Allergy Severe Anaphylaxis Verified 01/24/18 11:23 povidone-iodine Allergy Severe Anaphylaxis Verified 01/24/18 11:23 sodium iodide Allergy Severe Anaphylaxis Verified 01/24/18 11:23 sodium iodide Allergy Severe Anaphylaxis Verified 01/24/18 11:23 Review of Systems ROS: all other systems reviewed are negative Constitutional Denies chills and Denies fever(s) ENT Denies nasal congestion Cardiovascular Denies syncope and Denies edema Respiratory Reports cough, Reports dyspnea and Reports wheezing Gastrointestinal Denies nausea and Denies vomiting Musculoskeletal Denies myalgias and Denies arthralgias Integumentary/Breasts Denies rash and Denies sores Neurologic Denies focal weakness and Denies numbness [facility] Medical History Medical History Aneurysm (Acute) Seizure (Acute) Social History Social History Substance History: No History of Abuse Second Hand Smoke Exposure: Yes Smoking Status: Former smoker Tobacco Type: Cigarettes How Often Do You Have a Drink Containing Alcohol: 4 or more times a week Recent Travel in [facility] within the Last 8 Weeks: No Recent Out of Country Travel within the Last 8 Weeks: No Exam Narrative Exam Narrative: GENERAL: Awake and alert, in no acute distress. SKIN: Focused skin assessment warm/dry. No wounds or signs of infection. HEAD: Atraumatic. Normocephalic. EYES: Pupils equal and round. No scleral icterus. ENT: Mucous membranes pink and moist. NECK: Trachea midline. No JVD. CARDIOVASCULAR: Regular rate and rhythm. No murmur appreciated. RESPIRATORY: No accessory muscle use. Decreased breath sounds throughout both lungs. Breath sounds equal bilaterally. GASTROINTESTINAL: Abdomen soft, non-tender, nondistended. MUSCULOSKELETAL: No obvious deformities. No clubbing. No cyanosis. No edema. NEUROLOGICAL: Awake and alert. No obvious cranial nerve deficits. Motor grossly within normal limits. Normal speech. PSYCHIATRIC: Appropriate mood and affect; insight and judgment normal. Course Initial Documented Vital Signs Pulse Rate 88 01/24/18 11:15 Respiratory Rate 20 01/24/18 11:15 Last Documented Vital Signs Pulse Rate 87 01/24/18 13:18 Respiratory Rate 18 01/24/18 13:18 Pulse Oximetry 92 L 01/24/18 11:21 Medical Decision Making MDM Narrative Medical decision making narrative: Patient is a 57 year old female who comes in complaining of shortness of breath. Exam shows decreased breath sounds throughout both lungs. Given 3 DuoNeb. She was given solumedrol by EMS. Labs sent show no acute abnormalities. CXR shows hyperinflation, no pneumonia. Patient improved after treatment with better air movement. Given additional albuterol. Patient still with a large amount of wheezing and decreased air movement. Patient will require admission. Medical Screen Exam Complete: Yes Emergency Medical Condition: Yes Differential Diagnosis Differential Diagnosis: COPD exacerbation versus pneumonia versus bronchitis Medical Records Medical records reviewed: Yes I reviewed the patient's medical records. Lab Data Lab results reviewed: Yes I reviewed the patient's lab results. Result diagrams: 01/24/18 11:30 01/24/18 11:30 Lab Results 01/24/18 01/24/18 Range/Units 11:30 11:30 WBC 7.8 (4.0-11.0) th/mm3 RBC 4.65 (4.00-5.30) mil/mm3 Hgb 14.5 (11.6-15.3) gm/dL Hct 42.7 (35.0-46.0) % MCV 91.9 (80.0-100.0) fL MCH 31.1 (27.0-34.0) pg MCHC 33.8 (32.0-36.0) % RDW 13.0 (11.6-17.2) % Plt Count 285 (150-450) th/mm3 MPV 7.4 (7.0-11.0) fL Neut % (Auto) 75.3 H (16.0-70.0) % Lymph % (Auto) 19.9 (9.0-44.0) % [place] % (Auto) 3.4 (0.0-8.0) % Eos % (Auto) 1.2 (0.0-4.0) % Baso % (Auto) 0.2 (0.0-2.0) % Neut # (Auto) 5.9 (1.8-7.7) th/mm3 Lymph # (Auto) 1.6 (1.0-4.8) th/mm3 [place] # (Auto) 0.3 (0.0-0.9) th/mm3 Eos # (Auto) 0.1 (0.0-0.4) th/mm3 Baso # (Auto) 0.0 (0.0-0.2) th/mm3 WBC Differential . Differential Comment Auto diff final Sodium 143 (136-145) meq/L Potassium 3.6 (3.5-5.1) meq/L Chloride 107 (98-107) meq/L Carbon Dioxide 26.2 (21.0-32.0) meq/L Anion Gap 10 (5-15) meq/L BUN 12 (7-18) mg/dL Creatinine 0.59 (0.50-1.00) mg/dL Estimated GFR Greater than 89 (>89) mL/min Random Glucose 156 H (74-106) mg/dL Calcium 8.9 (8.5-10.1) mg/dL Total Bilirubin 0.5 (0.2-1.0) mg/dL AST 35 (15-37) U/L ALT 34 (10-53) U/L Alkaline Phosphatase 115 (45-117) U/L Troponin I Less than 0.02 L (0.02-0.05) ng/mL Total Protein 7.6 (6.4-8.2) g/dL Albumin 3.9 (3.4-5.0) g/dL Imaging Data Radiologist's impression: Chest X-Ray 01/24/18 11:05 CONCLUSION: Hyperinflation. ECG Data EKG Prior to Arrival: No Attestation: I personally reviewed and interpreted this ECG as follows: Interpretation: ECG shows normal sinus rhythm at a rate of 89, no ST elevation or depression, normal intervals. Discharge Plan Discharge Disposition Patient Disposition: 30 Still Patient Discharge Condition Condition: Stable Discharge Details Diagnosis: Acute exacerbation of chronic obstructive pulmonary disease (COPD) Physicians Team ED Provider: Ana Luisa Romero Primary Care Provider: Primary Care SummeriKarma Rxs /Orders / Referrals /Forms Prescriptions: No Action Keppra RF: 0 Latuda RF: 0 gabapentin RF: 0 Discharge Instructions Patient Printed Instructions: COPD (Chronic Obstructive Pulmonary Disease) (DC) Status ED Status: With Doctor
[2018-01-24] MEDS ORDERED: Ibuprofen 400 MG Tablet PO ONE (15:29)
[2018-01-24] MEDS ORDERED: Bisacodyl 10 MG Supp RECTAL PRN (15:39)
[2018-01-24 15:54] LABS: ABG PCO2 38 mmHg (38-42); ABG PO2 55 mmHg (61-120)
[2018-01-24] MEDS: Acetaminophen 325 MG Tablet PO PRN ×2 (18:07→19:55)
--- NOTE | 2018-01-24 18:19 | P.HPIM ---
History of Present Illness Service: [facility] Primary Care Physician: No Primary Care Physician Chief Complaint: Shortness of breath History of Present Illness: patient is a 57-year-old female who came in complaining of increasing shortness of breath.She has a known history of COPD and is states she is trying to quit smoking. She states that this is been going on for the past week. She states that she was seen at the hospital in [facility] and was discharged with a prescription for albuterol and prednisone. She states she took all the prednisone but she was unable to afford the albuterol. She states that she went to [facility] today who was trying to help her get her inhaler. But she still can breathe so [facility] She states she has never improved. She states she smoked 1 cigarette today and she states that her chest felt tight and she had pain when she coughs. Denies any fever chills denies any nausea vomiting severity was moderate. Patient states that she has some incontinence when she coughs Patient will be admitted for COPD exacerbation and noncompliance since she is was unable to get the medications to treat her COPD Will be continued on duo nebs and Mucinex and Symbicort and steroids and Levaquin Inpatient Certification: I certify that the inpatient services were ordered in accordance with Medicare regulations governing the order. This includes certification that hospital inpatient services are reasonable and necessary and in the case of services not specified as inpatient-only under 42 CFR 419.22(n), that they are appropriately provided as inpatient services in accordance to with the 2-midnight benchmark under 43 CFR 412.3(e) Estimated Total Length of Stay (Days): 3 Plans for Post Hospital Care: Home Review of Systems All other systems reviewed negative except as stated in HPI [facility] - History History Provided By: Patient, Manager Storage / EMT - Medical History Medical History: Medical History (Last Updated 01/24/18 @ 18:10 by Epifanio Rodriguez DO) Subarachnoid hematoma Aneurysm Seizure - Surgical History Surgical History: Surgical History (Last Updated 01/24/18 @ 18:10 by Epifanio Rodriguez DO) History of exploratory laparotomy - Family History Family History: Family History (Last Updated 01/24/18 @ 18:11 by Epifanio Rodriguez DO) Other Family history unknown - Social History I have reviewed the patient's Social History: Yes - Tobacco History Second Hand Smoke Exposure: Yes Smoking Status: Former smoker Tobacco Type: Cigarettes - Alcohol History How Often Do You Have a Drink Containing Alcohol: 4 or more times a week - Substance Use History Substance History: No History of Abuse - Travel History History of Recent Travel: No Recent Travel in the [place] Within the Last 8 Weeks: No Recent Travel Out of the Country Within the Last 8 Weeks: No Medications and Allergies Active Medications: Active Medications Acetaminophen (Tylenol) 650 mg PO Q4H PRN PRN Reason: Temp > 100.4 Al Hydroxide/Mg Hydroxide (Milk Of Magnesia Liq) 30 ml PO Q12H PRN PRN Reason: Mild Constipation Albuterol (Duoneb Neb (Michel)) 1 ampul NEB Q4HR NEB [facility] Last Admin: 01/24/18 17:07 Dose: 1 ampul Albuterol (Duoneb Neb (Prn)) 1 ampul NEB Q2HR NEB PRN PRN Reason: SHORTNESS OF BREATH Bisacodyl (Dulcolax Supp) 10 mg RECTAL DAILY PRN PRN Reason: SEVERE CONSITIPATION Budesonide/Formoterol Fumarate (Symbicort 160/4.5 Mcg Inh) 2 puff INH BID [facility] Clonidine HCl (Catapres) 0.1 mg PO Q6H PRN PRN Reason: HYPERTENSION Enoxaparin Sodium (Lovenox Inj) 40 mg SQ Q24H [facility] Guaifenesin (Mucinex Er) 600 mg PO BID [facility] Levofloxacin/Dextrose (Levaquin 750 Mg Premix Inj) 150 mls @ 100 mls/hr IV.SIG Q24H [facility] Sodium Chloride (Ns Inj) 1,000 mls @ 100 mls/hr IV.CONT .Q10H [facility] Lactulose (Lactulose Liq) 30 ml PO DAILY PRN PRN Reason: SEVERE CONSITIPATION Methylprednisolone Sodium Succinate (Solumedrol Inj) 60 mg IV.PUSH Q6H [facility] Nicotine (Habitrol 21 Mg Patch.24 Hr) 1 patch T-DERMAL DAILY [facility] Ondansetron HCl (Zofran Inj) 4 mg IV.PUSH Q6H PRN PRN Reason: NAUSEA OR VOMITING Patch Removal (Remove Old Patch) 1 each T-DERMAL DAILY [facility] Senna/Docusate Sodium (Mily-Colace) 1 tab PO BID [facility] Sennosides (Senokot) 17.2 mg PO Q12H PRN PRN Reason: Moderate Constipation Sodium Chloride (Ns Flush) 2 ml IV.FLUSH BID MICHEL Sodium Chloride (Ns Flush) 2 ml IV.FLUSH PRN PRN PRN Reason: FLUSH AFTER USING IV ACCESS Zolpidem Tartrate (Ambien) 5 mg PO HS PRN PRN Reason: INSOMNIA Allergies Allergy/AdvReac Type Severity Reaction Status Date / Time iodine Allergy Severe Anaphylaxis Verified 01/24/18 11:23 penicillin G Allergy Severe Anaphylaxis Verified 01/24/18 11:23 phenytoin Allergy Severe BODY ON Verified 01/24/18 11:23 FIRE potassium iodide Allergy Severe Anaphylaxis Verified 01/24/18 11:23 povidone-iodine Allergy Severe Anaphylaxis Verified 01/24/18 11:23 sodium iodide Allergy Severe Anaphylaxis Verified 01/24/18 11:23 sodium iodide Allergy Severe Anaphylaxis Verified 01/24/18 11:23 Home Medications Medication Instructions Recorded Confirmed Type Keppra 01/24/18 History Latuda 01/24/18 History gabapentin 01/24/18 History Exam Vital signs: Vital Signs 01/24/18 10:30 01/24/18 11:15 01/24/18 11:21 Temperature 98.2 F Pulse Rate 98 H 88 Respiratory Rate 20 20 Blood Pressure 147/87 H Pulse Oximetry 94 L 92 L 01/24/18 13:18 01/24/18 17:08 Temperature Pulse Rate 87 100 H Respiratory Rate 18 26 H Blood Pressure Pulse Oximetry Intake & Output 01/23/18 01/24/18 01/24/18 18:59 06:59 18:59 Weight 47.627 kg Narrative: GENERAL: Awake alert and oriented 3 talkative and cooperative appears to be in some distress SKIN: Warm and dry. HEAD: Atraumatic. Normocephalic. EYES: Pupils equal and round. No scleral icterus. No injection or drainage. ENT: No nasal bleeding or discharge. Mucous membranes pink and moist. NECK: Trachea midline. No JVD. CARDIOVASCULAR: Regular rate and rhythm. S1-S2 no S3 or S4 RESPIRATORY: No accessory muscle use. Coarse breath sounds bilaterally with rhonchi and wheezes bilaterally. Breath sounds equal bilaterally. GASTROINTESTINAL: Abdomen soft, non-tender, nondistended. Hepatic and splenic margins not palpable. MUSCULOSKELETAL: Extremities without clubbing, cyanosis, or edema. No obvious deformities. NEUROLOGICAL: Awake and alert. No obvious cranial nerve deficits. Motor grossly within normal limits. Five out of 5 muscle strength in the arms and legs. Normal speech. PSYCHIATRIC: Appropriate mood and affect; insight and judgment normal. Results - Labs CBC & Chem 7: 01/24/18 11:30 01/24/18 11:30 Labs: Short CBC 01/24/18 Range/Units 11:30 WBC 7.8 (4.0-11.0) th/mm3 Hgb 14.5 (11.6-15.3) gm/dL Hct 42.7 (35.0-46.0) % Plt Count 285 (150-450) th/mm3 BMP 01/24/18 11:30 Sodium 143 Potassium 3.6 Chloride 107 Carbon Dioxide 26.2 BUN 12 Creatinine 0.59 Calcium 8.9 Cardiac Enzymes 01/24/18 Range/Units 11:30 Troponin I Less than 0.02 L (0.02-0.05) ng/mL Liver Function 01/24/18 Range/Units 11:30 Total Bilirubin 0.5 (0.2-1.0) mg/dL AST 35 (15-37) U/L ALT 34 (10-53) U/L Alkaline Phosphatase 115 (45-117) U/L Albumin 3.9 (3.4-5.0) g/dL - Imaging Impressions Chest X-Ray 01/24/18 11:05 CONCLUSION: Hyperinflation. Caprini VTE Risk Assessment Caprini VTE Risk Assessment: Moderate/High Risk (score >= 2) Caprini Risk Assessment Model: Point Value = 1 Point Value = 2 Point Value = 3 Point Value = 5 Age 41-60 Minor surgery BMI > 25 kg/m2 Swollen legs Varicose veins or History of unexplained or recurrent spontaneous Oral contraceptives or hormone replacement Sepsis (< 1 month) Serious lung disease, including pneumonia (< 1 month) Abnormal pulmonary function Acute myocardial infarction Congestive heart failure (< 1 month) History of inflammatory bowel disease Medical patient at bed rest Age 61-74 Arthroscopic surgery Major open surgery (> 45 min) Laparoscopic surgery (> 45 min) Malignancy Confined to bed (> 72 hours) Immobilizing plaster cast Central venous access Age >= 75 History of VTE Family history of VTE Factor V Leiden Prothrombin [id number] Lupus anticoagulant Anticardiolipin antibodies Elevated serum homocysteine Heparin-induced thrombocytopenia Other congenital or acquired thrombophilia Stroke (< 1 month) Elective arthroplasty Hip, pelvis, or leg fracture Acute spinal cord injury (< 1 month) Prophylaxis Regimen: Total Risk Factor Score Risk Level Prophylaxis Regimen 0-1 Low Early ambulation 2 Moderate Order ONE of the following: *Sequential Compression Device (SCD) *Heparin 5000 units SQ BID 3-4 Higher Order ONE of the following medications: *Heparin 5000 units SQ TID *Enoxaparin/Lovenox 40 mg SQ daily (WT < 150 kg, CrCl > 30 mL/min) *Enoxaparin/Lovenox 30 mg SQ daily (WT < 150 kg, CrCl > 10-29 mL/min) *Enoxaparin/Lovenox 30 mg SQ BID (WT < 150 kg, CrCl > 30 mL/min) AND/OR *Sequential Compression Device (SCD) 5 or more Highest Order ONE of the following medications: *Heparin 5000 units SQ TID (Preferred with Epidurals) *Enoxaparin/Lovenox 40 mg SQ daily (WT < 150 kg, CrCl > 30 mL/min) *Enoxaparin/Lovenox 30 mg SQ daily (WT < 150 kg, CrCl > 10-29 mL/min) *Enoxaparin/Lovenox 30 mg SQ BID (WT < 150 kg, CrCl > 30 mL/min) AND *Sequential Compression Device (SCD) Assessment and Plan - Plan COPD exacerbation -Continue on duo nebs -Continue on Mucinex- -continue on Solu-Medrol -Continue on Symbicort -Continue on Levaquin IV -Check an ABG -Oxygen and incentive spirometry HYPOXIA ON ABG WILL NEED ALL OF THE ABOVE HOPEFULLY DOES NOT NEED OXYGEN AT [place] CANNOT AFFORD NEBULIZER AND NEBULIZED MEDICATIONS SHE STATE CONSULT CASE MANAGEMENT FOR [facility] History of seizure disorder continue on Keppra History of manic depression bipolar try to obtain Keppra dose Try to obtain Latuda dose Try to obtain gabapentin dose GI prophylaxis DVT prophylaxis Activity as tolerated Smoking cessation recommended No smoking of any type [place] BE marijuana or tobacco Code Status: FULL CODE Discussed Condition With: ER PHYSICIAN AND RN AND PATIENT Discharge Planning: ONCE BREATHING BETTER
[2018-01-24 18:31] LABS: Creatine Kinase 113 U/L (26-192)
[2018-01-24 18:34] LABS: Bacteria,Urine Rare /hpf; Bilirubin,Urine Negative (Negative); Clarity,Urine Hazy (Clear); Color,Urine Yellow (Yellw/Straw); Glucose,Urine (UA) Negative (Negative); Leukocyte Esterase,Urine Negative (Negative); Mucus,Urine Few /lpf (Occasional); Nitrite,Urine Negative (Negative); Specific Gravity,Urine 1.018 (1.002-1.035); Squamous Epithelial Cell,Urine 1 /hpf (0-5)
[2018-01-24] MEDS: Sod Chloride 0.9% Inj 1,000 ML IV.CONT SCH (19:12)
[2018-01-24] MEDS: Gabapentin 300 MG Capsule PO SCH (19:55)
[2018-01-24] MEDS: Enoxaparin Inj 40 MG/0.4 ML Syringe SQ SCH (19:55)
[2018-01-24] MEDS: MethylPREDNISolone Sod Succinate Inj 40 MG/ML Vial IV.PUSH SCH (19:55)
[2018-01-24] MEDS: levETIRAcetam 500 MG Tablet PO SCH (21:35)
[2018-01-24] MEDS: guaiFENesin 600 MG ER Tablet PO SCH (21:35)
[2018-01-24] MEDS: Budesonide-Formoterol 160/4.5 MCG 6 GM Inhaler INH SCH (21:36)
[2018-01-24] MEDS: Senna/Docusate Sodium 8.6/50 MG Tablet PO SCH (21:36)
[2018-01-24 22:45] LABS: Creatine Kinase 85 U/L (26-192)
[2018-01-24] MEDS ORDERED: LORazepam 0.5 MG Tablet PO ONE (23:40)
[2018-01-25] MEDS: MethylPREDNISolone Sod Succinate Inj 40 MG/ML Vial IV.PUSH SCH ×4 (00:17→17:27)
[2018-01-25] MEDS: Sod Chloride 0.9% Inj 1,000 ML IV.CONT SCH ×2 (04:26→14:25)
[2018-01-25 08:08] LABS: Baso % (Auto) 0.1 % (0.0-2.0); Hematocrit 36.9 % (35.0-46.0); Hemoglobin 12.6 gm/dL (11.6-15.3); Lymph % (Auto) 10.1 % (9.0-44.0); Mean Corpuscular HGB Conc 34.3 % (32.0-36.0); Mean Corpuscular Hemoglobin 31.4 pg (27.0-34.0); Mean Corpuscular Volume 91.7 fL (80.0-100.0); Mean Platelet Volume 7.1 fL (7.0-11.0); Mono # (Auto) 0.4 th/mm3 (0.0-0.9); Neut # (Auto) 8.4 th/mm3 (1.8-7.7); Neut % (Auto) 85.8 % (16.0-70.0); Platelet Count 277 th/mm3 (150-450); Red Blood Count 4.02 mil/mm3 (4.00-5.30); Red Cell Distribution Width 13.1 % (11.6-17.2); White Blood Count 9.8 th/mm3 (4.0-11.0)
[2018-01-25 08:49] LABS: Alanine Aminotransferase 26 U/L (10-53); Albumin 3.2 g/dL (3.4-5.0); Alkaline Phosphatase 96 U/L (45-117); Anion Gap 12 meq/L (5-15); Aspartate Aminotransferase 17 U/L (15-37); Blood Urea Nitrogen 14 mg/dL (7-18); Calcium 8.4 mg/dL (8.5-10.1); Carbon Dioxide 23.3 meq/L (21.0-32.0); Chloride 108 meq/L (98-107); Free T4 (Free Thyroxine) 0.96 ng/dL (0.76-1.46); Glomerular Filtration Rate 88 mL/min (>89); Glucose,Random 165 mg/dL (74-106); Magnesium 2.1 mg/dL (1.5-2.5); Phosphorus 3.6 mg/dL (2.5-4.9); Potassium 3.5 meq/L (3.5-5.1); Sodium 143 meq/L (136-145); Thyroid Stimulating Hormone 0.588 uIU/mL (0.358-3.740); Total Protein 6.7 g/dL (6.4-8.2)
[2018-01-25] MEDS: Senna/Docusate Sodium 8.6/50 MG Tablet PO SCH ×2 (09:33→20:29)
[2018-01-25] MEDS: Gabapentin 300 MG Capsule PO SCH ×3 (09:33→17:26)
[2018-01-25] MEDS: levETIRAcetam 500 MG Tablet PO SCH ×3 (09:33→20:29)
[2018-01-25] MEDS: guaiFENesin 600 MG ER Tablet PO SCH ×2 (09:34→20:29)
[2018-01-25] MEDS: Budesonide-Formoterol 160/4.5 MCG 6 GM Inhaler INH SCH ×2 (09:34→21:18)
[2018-01-25 16:22] LABS: Hemoglobin A1c 5.8 % (4.3-6.0)
--- NOTE | 2018-01-25 17:20 | P.PN ---
Subjective Interval history: follow up for COPD exacerbation: Physical Exam Vital signs: Vital Signs 01/24/18 18:09 01/24/18 19:39 01/24/18 20:07 Temperature Pulse Rate 78 88 112 H Respiratory Rate 20 20 20 Blood Pressure 136/80 120/68 Pulse Oximetry 95 97 95 01/24/18 22:29 01/24/18 23:12 01/25/18 01:36 Temperature 97.5 F L Pulse Rate 101 H 104 H 97 H Respiratory Rate 26 H Blood Pressure 134/81 Pulse Oximetry 97 01/25/18 03:07 01/25/18 03:53 01/25/18 08:00 Temperature 97.5 F L 97.7 F Pulse Rate 101 H 95 H 95 H Respiratory Rate 24 18 16 Blood Pressure 141/84 H 138/103 H Pulse Oximetry 95 96 01/25/18 08:21 01/25/18 10:01 01/25/18 10:04 Temperature Pulse Rate 87 93 H Respiratory Rate 16 Blood Pressure Pulse Oximetry 96 01/25/18 13:00 01/25/18 13:09 01/25/18 13:42 Temperature 97.5 F L Pulse Rate 87 107 H 118 H Respiratory Rate 20 20 Blood Pressure 141/92 H Pulse Oximetry 96 01/25/18 16:13 Temperature Pulse Rate 93 H Respiratory Rate 16 Blood Pressure Pulse Oximetry Intake & Output 01/24/18 01/25/18 01/25/18 18:59 06:59 18:59 Intake Total 1100 / 1100 1000 / 1000 Balance 1100 / 1100 1000 / 1000 Weight 47.627 kg 53.3 kg Intake: IV 1100 / 1100 1000 / 1000 NS Inj 1,000 ML @ 100 mls/hr IV 1000 / 1000 1000 / 1000 .CONT .Q10H MICHEL Rx#:[id number] Levaquin 750 mg Premix Inj 150 100 / 100 ML @ 100 mls/hr IV.SIG Q24H MICHEL Rx#:[id number] Other: # Voids 3 Date of Last Bowel Movement 01/24/18 01/25/18 # Bowel Movements 1 Weight On Admission 47.627 kg Narrative: GENERAL: 57-year-old thin built female SKIN: Warm and dry. HEAD: Atraumatic. Normocephalic. EYES: Pupils equal and round. No scleral icterus. No injection or drainage. ENT: No nasal bleeding or discharge. Mucous membranes pink and moist. NECK: Trachea midline. No JVD. CARDIOVASCULAR: Regular rate and rhythm. RESPIRATORY: Expiratory wheezing, nonproductive cough. GASTROINTESTINAL: Abdomen soft, non-tender, nondistended. Hepatic and splenic margins not palpable. MUSCULOSKELETAL: Extremities without clubbing, cyanosis, or edema. No obvious deformities. NEUROLOGICAL: Awake and alert. No obvious cranial nerve deficits. Motor grossly within normal limits. Five out of 5 muscle strength in the arms and legs. Normal speech. PSYCHIATRIC: Appropriate mood and affect; insight and judgment normal. Results - Labs CBC & Chem 7: 01/25/18 06:50 01/25/18 06:50 Laboratory Results - last 24 hr 01/24/18 01/24/18 01/24/18 17:30 18:00 21:40 WBC RBC Hgb Hct MCV MCH MCHC RDW Plt Count MPV Neut % (Auto) Lymph % (Auto) [place] % (Auto) Eos % (Auto) Baso % (Auto) Neut # (Auto) Lymph # (Auto) [place] # (Auto) Eos # (Auto) Baso # (Auto) WBC Differential Differential Comment Sodium Potassium Chloride Carbon Dioxide Anion Gap BUN Creatinine Estimated GFR Random Glucose Hemoglobin A1c Calcium Phosphorus Magnesium Total Bilirubin AST ALT Alkaline Phosphatase Total Creatine Kinase 113 85 Troponin I Less than 0.02 L Less than 0.02 L Total Protein Albumin TSH Free T4 Urine Color Yellow Urine Clarity Hazy H Urine pH 6.0 Ur Specific [place] 1.018 Urine Protein 100 H Urine Glucose (UA) Negative Urine Ketones Negative Urine Occult Blood Moderate H Urine Nitrate Negative Urine Bilirubin Negative Urine Urobilinogen Less than 2 Ur Leukocyte Esterase Negative Urine RBC 16 H Urine WBC 4 Ur Squamous Epith Cells 1 Urine Bacteria Rare H Urine Mucus Few H Micro UA Comment Culture not ind Ur Microscopic Review Not Reportable Urine Culture Comments Culture not ind 01/25/18 01/25/18 01/25/18 06:50 06:50 06:50 WBC 9.8 RBC 4.02 Hgb 12.6 Hct 36.9 MCV 91.7 MCH 31.4 MCHC 34.3 RDW 13.1 Plt Count 277 MPV 7.1 Neut % (Auto) 85.8 H Lymph % (Auto) 10.1 [place] % (Auto) 4.0 Eos % (Auto) 0.0 Baso % (Auto) 0.1 Neut # (Auto) 8.4 H Lymph # (Auto) 1.0 [place] # (Auto) 0.4 Eos # (Auto) 0.0 Baso # (Auto) 0.0 WBC Differential . Differential Comment Auto diff final Sodium 143 Potassium 3.5 Chloride 108 H Carbon Dioxide 23.3 Anion Gap 12 BUN 14 Creatinine 0.69 Estimated GFR 88 L Random Glucose 165 H Hemoglobin A1c 5.8 Calcium 8.4 L Phosphorus 3.6 Magnesium 2.1 Total Bilirubin 0.3 AST 17 ALT 26 Alkaline Phosphatase 96 Total Creatine Kinase Troponin I Total Protein 6.7 D Albumin 3.2 L D TSH 0.588 Free T4 0.96 Urine Color Urine Clarity Urine pH Ur Specific [place] Urine Protein Urine Glucose (UA) Urine Ketones Urine Occult Blood Urine Nitrate Urine Bilirubin Urine Urobilinogen Ur Leukocyte Esterase Urine RBC Urine WBC Ur Squamous Epith Cells Urine Bacteria Urine Mucus Micro UA Comment Ur Microscopic Review Urine Culture Comments Microbiology 01/24/18 14:45 Sputum - Expectorated Sputum Gram Stain - Final 01/24/18 14:45 Sputum - Expectorated Sputum Sputum Culture - Preliminary Immature growth - reincubate 01/24/18 17:30 Blood - Peripheral Aerobic Blood Culture - Preliminary No growth in 1 day 01/24/18 17:30 Blood - Peripheral Anaerobic Blood Culture - Preliminary No growth in 1 day 01/24/18 17:30 Blood - Peripheral Aerobic Blood Culture - Preliminary No growth in 1 day 01/24/18 17:30 Blood - Peripheral Anaerobic Blood Culture - Preliminary No growth in 1 day Assessment and Plan - Assessment (1) Tobacco abuse Code(s): Z72.0 - Tobacco use Status: Acute (2) Acute exacerbation of chronic obstructive pulmonary disease (COPD) Code(s): J44.1 - Chronic obstructive pulmonary disease with (acute) exacerbation Status: Acute - Plan -Assessment/plan 57-year-old female who came in complaining of increasing shortness of breath. She has a known history of COPD and states she is trying to quit smoking. Was treated at another hospital and discharged on albuterol and prednisone. Indicates that she completed prednisone however unable to afford albuterol. Patient is homeless. COPD exacerbation Hypoxia on ABG Continue with supplemental oxygen for now, keep sats greater than 90. Hopefully we can wean off oxygen. Will have RN check sats on room air tomorrow Continue with IV steroids Continue with Mucinex Continue with Symbicort Continue with empiric antibiotics, Levaquin Compliance Discussed with patient did need to complete treatment Tobacco abuse Patient indicates she is trying to quit Tobacco abuse counseling History of seizure disorder - continue on Keppra History of manic depression bipolar -Continue Latuda Case management consultation, patient will need assistance with medications Patient remains with shortness of breath and wheezing although improved today Plan to discharge tomorrow
[2018-01-25] MEDS: Enoxaparin Inj 40 MG/0.4 ML Syringe SQ SCH (17:26)
[2018-01-25] MEDS: Zolpidem Tartrate 5 MG Tablet PO PRN (20:37)
--- NOTE | 2018-01-26 00:09 | ECG ---
Date Performed: 01/24/2018 Time Performed: 23:02:17 PTAGE: 57 years EKG: SINUS TACHYCARDIA ABNORMAL RHYTHM ECG PREVIOUS TRACING : 01/24/2018 11.30 Since the previous tracing, rate has increased DOCTOR: Juventino Ohara Interpretating Date/Time 01/26/2018 00:08:03
--- NOTE | 2018-01-26 00:53 | ECG ---
Date Performed: 01/24/2018 Time Performed: 11:30:55 PTAGE: 57 years EKG: Sinus rhythm NORMAL ECG PREVIOUS TRACING : 11/12/2017 02.59 Since the previous tracing, no significant change noted DOCTOR: Juventino Ohara Interpretating Date/Time 01/26/2018 00:52:33
[2018-01-26] MEDS: MethylPREDNISolone Sod Succinate Inj 40 MG/ML Vial IV.PUSH SCH ×4 (01:00→17:20)
[2018-01-26] MEDS: Sod Chloride 0.9% Inj 1,000 ML IV.CONT SCH ×5 (02:57→18:33)
[2018-01-26] MEDS: levETIRAcetam 500 MG Tablet PO SCH ×4 (07:05→21:52)
[2018-01-26 07:28] LABS: Hematocrit 38.1 % (35.0-46.0); Lymph # (Auto) 0.7 th/mm3 (1.0-4.8); Lymph % (Auto) 6.6 % (9.0-44.0); Mean Corpuscular HGB Conc 34.1 % (32.0-36.0); Mean Corpuscular Hemoglobin 31.3 pg (27.0-34.0); Mean Corpuscular Volume 91.8 fL (80.0-100.0); Mean Platelet Volume 6.8 fL (7.0-11.0); Mono # (Auto) 0.3 th/mm3 (0.0-0.9); Mono % (Auto) 2.5 % (0.0-8.0); Neut % (Auto) 90.9 % (16.0-70.0); Platelet Count 284 th/mm3 (150-450); Red Blood Count 4.15 mil/mm3 (4.00-5.30); Red Cell Distribution Width 13.2 % (11.6-17.2)
[2018-01-26 07:58] LABS: Albumin 3.1 g/dL (3.4-5.0); Anion Gap 13 meq/L (5-15); Aspartate Aminotransferase 12 U/L (15-37); Blood Urea Nitrogen 12 mg/dL (7-18); Carbon Dioxide 24.5 meq/L (21.0-32.0); Chloride 107 meq/L (98-107); Glomerular Filtration Rate 69 mL/min (>89); Glucose,Random 205 mg/dL (74-106); Sodium 144 meq/L (136-145)
[2018-01-26 08:01] LABS: Alanine Aminotransferase 24 U/L (10-53); Alkaline Phosphatase 85 U/L (45-117); Total Protein 6.6 g/dL (6.4-8.2)
[2018-01-26] MEDS: Gabapentin 300 MG Capsule PO SCH ×3 (08:28→17:19)
[2018-01-26] MEDS: Budesonide-Formoterol 160/4.5 MCG 6 GM Inhaler INH SCH ×2 (08:29→21:53)
[2018-01-26] MEDS: guaiFENesin 600 MG ER Tablet PO SCH ×2 (08:29→21:52)
[2018-01-26] MEDS: Senna/Docusate Sodium 8.6/50 MG Tablet PO SCH ×2 (08:29→21:53)
--- NOTE | 2018-01-26 10:41 | P.PNIM ---
Subjective Interval history: patient is a 57-year-old female who came in complaining of increasing shortness of breath.She has a known history of COPD and is states she is trying to quit smoking. She states that this is been going on for the past week. She states that she was seen at the hospital in [facility] and was discharged with a prescription for albuterol and prednisone. She states she took all the prednisone but she was unable to afford the albuterol. She states that she went to [facility] today who was trying to help her get her inhaler. But she still can breathe so they sent her to the emergency department here at [facility]. She states she has never improved. She states she smoked 1 cigarette today and she states that her chest felt tight and she had pain when she coughs. Denies any fever chills denies any nausea vomiting severity was moderate. Patient states that she has some incontinence when she coughs Patient will be admitted for COPD exacerbation and noncompliance since she is was unable to get the medications to treat her COPD Will be continued on duo nebs and Mucinex and Symbicort and steroids and Levaquin 9-6 follow up for COPD exacerbation: 9-7 STILL SOME SOB STILL SOME COUGH IS HOMELESS LIVING ON THE STREETS VERY SLOW IMPROVEMENT COULD NOT AFFORD HER MEDICATIONS [place] FROM [facility] THEREFORE IS STILL WORSE Physical Exam Vital signs: Vital Signs 01/25/18 13:00 01/25/18 13:09 01/25/18 13:42 Temperature 97.5 F L Pulse Rate 87 107 H 118 H Respiratory Rate 20 20 Blood Pressure 141/92 H Pulse Oximetry 96 01/25/18 16:00 01/25/18 16:13 01/25/18 19:29 Temperature 97.7 F Pulse Rate 92 H 93 H 115 H Respiratory Rate 16 16 35 H Blood Pressure 138/82 Pulse Oximetry 93 L 94 L 01/25/18 20:00 01/25/18 23:25 01/26/18 00:00 Temperature 98 F 98.1 F Pulse Rate 115 H 101 H 96 H Respiratory Rate 19 20 18 Blood Pressure 158/84 H 136/70 Pulse Oximetry 94 L 93 L 98 01/26/18 03:08 01/26/18 03:56 01/26/18 04:00 Temperature 97.8 F Pulse Rate 88 100 H 96 H Respiratory Rate 17 18 Blood Pressure 142/84 H Pulse Oximetry 94 L 01/26/18 07:42 01/26/18 08:00 Temperature 97.9 F Pulse Rate 84 110 H Respiratory Rate 16 20 Blood Pressure 149/90 H Pulse Oximetry 98 94 L Intake & Output 01/25/18 01/26/18 01/26/18 18:59 06:59 18:59 Intake Total 1050 / 1050 1630 / 1630 Balance 1050 / 1050 1630 / 1630 Weight 49.8 kg Intake: IV 1050 / 1050 1150 / 1150 NS Inj 1,000 ML @ 100 mls/hr IV 1000 / 1000 1000 / 1000 .CONT .Q10H MICHEL Rx#:[id number] Levaquin 750 mg Premix Inj 150 50 / 50 150 / 150 ML @ 100 mls/hr IV.SIG Q24H MICHEL Rx#:[id number] Oral 480 / 480 Other: # Voids 3 7 Date of Last Bowel Movement 01/25/18 01/25/18 # Bowel Movements 1 Narrative: GENERAL: 57-year-old thin built female awake alert and oriented 3 talkative and cooperative SKIN: Warm and dry. HEAD: Atraumatic. Normocephalic. EYES: Pupils equal and round. No scleral icterus. No injection or drainage. ENT: No nasal bleeding or discharge. Mucous membranes pink and moist. NECK: Trachea midline. No JVD. CARDIOVASCULAR: Regular rate and rhythm. S1-S2 no S3 or S4 RESPIRATORY: Expiratory wheezing, nonproductive cough. GASTROINTESTINAL: Abdomen soft, non-tender, nondistended. Hepatic and splenic margins not palpable. MUSCULOSKELETAL: Extremities without clubbing, cyanosis, or edema. No obvious deformities. NEUROLOGICAL: Awake and alert. No obvious cranial nerve deficits. Motor grossly within normal limits. Five out of 5 muscle strength in the arms and legs. Normal speech. PSYCHIATRIC: Appropriate mood and affect; insight and judgment normal. Results - Labs CBC & Chem 7: 01/26/18 06:58 01/26/18 06:58 Laboratory Results - last 24 hr 01/25/18 01/26/18 01/26/18 06:50 06:58 06:58 WBC 11.0 RBC 4.15 Hgb 13.0 Hct 38.1 MCV 91.8 MCH 31.3 MCHC 34.1 RDW 13.2 Plt Count 284 MPV 6.8 L Neut % (Auto) 90.9 H Lymph % (Auto) 6.6 L [place] % (Auto) 2.5 Eos % (Auto) 0.0 Baso % (Auto) 0.0 Neut # (Auto) 10.0 H Lymph # (Auto) 0.7 L [place] # (Auto) 0.3 Eos # (Auto) 0.0 Baso # (Auto) 0.0 WBC Differential . Differential Comment Auto diff final Sodium 144 Potassium 4.0 Chloride 107 Carbon Dioxide 24.5 Anion Gap 13 BUN 12 Creatinine 0.86 Estimated GFR 69 L Random Glucose 205 H Hemoglobin A1c 5.8 Calcium 8.0 L Total Bilirubin 0.3 AST 12 L ALT 24 Alkaline Phosphatase 85 Total Protein 6.6 Albumin 3.1 L Microbiology 01/24/18 14:45 Sputum - Expectorated Sputum Gram Stain - Final 01/24/18 14:45 Sputum - Expectorated Sputum Sputum Culture - Preliminary Immature growth - reincubate 01/24/18 17:30 Blood - Peripheral Aerobic Blood Culture - Preliminary No growth in 1 day 01/24/18 17:30 Blood - Peripheral Anaerobic Blood Culture - Preliminary No growth in 1 day 01/24/18 17:30 Blood - Peripheral Aerobic Blood Culture - Preliminary No growth in 1 day 01/24/18 17:30 Blood - Peripheral Anaerobic Blood Culture - Preliminary No growth in 1 day - Imaging Chest X-Ray 01/24/18 11:05 CONCLUSION: Hyperinflation. - Procedures NONE Assessment and Plan - Assessment (1) Tobacco abuse Code(s): Z72.0 - Tobacco use Status: Acute (2) Acute exacerbation of chronic obstructive pulmonary disease (COPD) Code(s): J44.1 - Chronic obstructive pulmonary disease with (acute) exacerbation Status: Acute - Plan 57-year-old female who came in complaining of increasing shortness of breath. She has a known history of COPD and states she is trying to quit smoking. Was treated at another hospital and discharged on albuterol and prednisone. Indicates that she completed prednisone however unable to afford albuterol. Patient is homeless. COPD exacerbation Hypoxia on ABG Continue with supplemental oxygen for now, keep sats greater than 90. Hopefully we can wean off oxygen. Will have RN check sats on room air tomorrow Continue with IV steroids Continue with Mucinex Continue with Symbicort Continue with empiric antibiotics, Levaquin WILL GET WALK TEST WAS NOT ABLE TO AFFORD MEDICATIONS AT [place] WILL NEED A NEBULIZER BUT IS HOMELESS ST Compliance Discussed with patient did need to complete treatment Tobacco abuse Patient indicates she is trying to quit Tobacco abuse counseling History of seizure disorder - continue on Keppra History of manic depression bipolar -Continue Latuda Case management consultation, patient will need assistance with medications Patient remains with shortness of breath and wheezing although A LITTLE IMPROVED NOT IMPROVED ENOUGH FOR DC YET Code Status: FULL CODE Discussed Condition With: RN AND PT AND CM Discharge Planning: ONCE BREATHING BETTER
--- NOTE | 2018-01-26 14:15 | ECHRPT ---
Indication: HTN CONCLUSIONS The left ventricular systolic function is normal with an estimated ejection fraction in the range of 60-65%. Normal left ventricular size. Wall thickness is normal. No regional wall motion abnormalities are present. The pulmonary valve is not well visualized. BP: / HR: Rhythm: Sinus Technical Quality:Good FINDINGS LEFT VENTRICLE The left ventricular systolic function is normal with an estimated ejection fraction in the range of 60-65%. Normal left ventricular size. Wall thickness is normal. No regional wall motion abnormalities are present. RIGHT VENTRICLE Normal right ventricular size and systolic function. LEFT ATRIUM The left atrial size is normal. RIGHT ATRIUM The right atrial size is normal. ATRIAL SEPTUM Normal atrial septal thickness without atrial level shunting by limited color doppler interrogation. AORTA The aortic root and proximal ascending aorta are normal in size on limited imaging. MITRAL VALVE Structurally normal mitral valve. No mitral valve stenosis or regurgitation. AORTIC VALVE Trileaflet aortic valve. No aortic valve stenosis or regurgitation. TRICUSPID VALVE Structurally normal tricuspid valve. No tricuspid valve stenosis or regurgitation. PULMONARY VALVE The pulmonary valve is not well visualized. VESSELS The inferior vena cava is normal in size. PERICARDIUM No pericardial effusion. Zoltan Hernandez MD, FACC (Electronically Signed) Final Date:26 January 2018 14:14
[2018-01-26] MEDS: Enoxaparin Inj 40 MG/0.4 ML Syringe SQ SCH (17:20)
[2018-01-26] MEDS: Zolpidem Tartrate 5 MG Tablet PO PRN (21:51)
[2018-01-27] MEDS: MethylPREDNISolone Sod Succinate Inj 40 MG/ML Vial IV.PUSH SCH ×3 (00:59→13:14)
[2018-01-27] MEDS: Sod Chloride 0.9% Inj 1,000 ML IV.CONT SCH ×4 (01:01→17:45)
[2018-01-27 09:19] LABS: Hematocrit 37.7 % (35.0-46.0); Hemoglobin 12.6 gm/dL (11.6-15.3); Lymph # (Auto) 0.8 th/mm3 (1.0-4.8); Mean Corpuscular HGB Conc 33.5 % (32.0-36.0); Mean Corpuscular Hemoglobin 30.9 pg (27.0-34.0); Mean Corpuscular Volume 92.4 fL (80.0-100.0); Mean Platelet Volume 6.8 fL (7.0-11.0); Mono # (Auto) 0.3 th/mm3 (0.0-0.9); Mono % (Auto) 3.2 % (0.0-8.0); Neut # (Auto) 8.4 th/mm3 (1.8-7.7); Neut % (Auto) 88.8 % (16.0-70.0); Platelet Count 271 th/mm3 (150-450); Red Blood Count 4.08 mil/mm3 (4.00-5.30); Red Cell Distribution Width 13.2 % (11.6-17.2); White Blood Count 9.5 th/mm3 (4.0-11.0)
[2018-01-27] MEDS: levETIRAcetam 500 MG Tablet PO SCH ×2 (09:24→09:26)
[2018-01-27] MEDS: Senna/Docusate Sodium 8.6/50 MG Tablet PO SCH (09:25)
[2018-01-27] MEDS: guaiFENesin 600 MG ER Tablet PO SCH (09:25)
[2018-01-27] MEDS: Gabapentin 300 MG Capsule PO SCH ×2 (09:25→13:14)
[2018-01-27] MEDS: Budesonide-Formoterol 160/4.5 MCG 6 GM Inhaler INH SCH (09:35)
[2018-01-27 09:52] LABS: Anion Gap 10 meq/L (5-15); Aspartate Aminotransferase 19 U/L (15-37); Blood Urea Nitrogen 11 mg/dL (7-18); Calcium 8.3 mg/dL (8.5-10.1); Carbon Dioxide 23.8 meq/L (21.0-32.0); Chloride 108 meq/L (98-107); Glomerular Filtration Rate Greater Than 89 mL/min (>89); Glucose,Random 181 mg/dL (74-106); Magnesium 2.1 mg/dL (1.5-2.5); Potassium 3.8 meq/L (3.5-5.1); Sodium 142 meq/L (136-145)
[2018-01-27 10:03] LABS: Alanine Aminotransferase 27 U/L (10-53); Alkaline Phosphatase 77 U/L (45-117); Phosphorus 2.5 mg/dL (2.5-4.9)
--- NOTE | 2018-01-27 11:49 | P.PNIM ---
Subjective Interval history: patient is a 57-year-old female who came in complaining of increasing shortness of breath.She has a known history of COPD and is states she is trying to quit smoking. She states that this is been going on for the past week. She states that she was seen at the hospital in [facility] and was discharged with a prescription for albuterol and prednisone. She states she took all the prednisone but she was unable to afford the albuterol. She states that she went to [facility] today who was trying to help her get her inhaler. But she still can breathe so they sent her to the emergency department here at [facility]. She states she has never improved. She states she smoked 1 cigarette today and she states that her chest felt tight and she had pain when she coughs. Denies any fever chills denies any nausea vomiting severity was moderate. Patient states that she has some incontinence when she coughs Patient will be admitted for COPD exacerbation and noncompliance since she is was unable to get the medications to treat her COPD Will be continued on duo nebs and Mucinex and Symbicort and steroids and Levaquin 9-6 follow up for COPD exacerbation: 9-7 STILL SOME SOB STILL SOME COUGH IS HOMELESS LIVING ON THE STREETS VERY SLOW IMPROVEMENT COULD NOT AFFORD HER MEDICATIONS AT [place] FROM [facility] THEREFORE IS STILL WORSE 9-8 BREATHING BETTER WANTS TO GO HOME STATES WILL STAY WITH BF HE HAS A PLACE TO LIVE DC TO HOME DW RN AND PT AND CM Physical Exam Vital signs: Vital Signs 01/26/18 11:50 01/26/18 12:00 01/26/18 15:26 Temperature 97.4 F L Pulse Rate 103 H Respiratory Rate 19 Blood Pressure 127/83 Pulse Oximetry 94 L 98 Pulse Oximetry [Exertion on Room Air] 90 L Pulse Oximetry [Resting on Room Air] 92 L 01/26/18 15:27 01/26/18 16:00 01/26/18 19:44 Temperature 97.5 F L Pulse Rate 93 H 105 H 105 H Respiratory Rate 18 18 20 Blood Pressure 132/91 H Pulse Oximetry 94 L Pulse Oximetry [Exertion on Room Air] Pulse Oximetry [Resting on Room Air] 01/26/18 20:00 01/26/18 23:50 01/27/18 00:00 Temperature 98.1 F 97.9 F Pulse Rate 104 H 115 H 103 H Respiratory Rate 18 23 15 Blood Pressure 168/81 H 136/69 Pulse Oximetry 94 L 91 L 93 L Pulse Oximetry [Exertion on Room Air] Pulse Oximetry [Resting on Room Air] 01/27/18 04:00 01/27/18 04:27 01/27/18 08:00 Temperature 98.1 F 97.9 F Pulse Rate 91 H 94 H 95 H Respiratory Rate 18 17 18 Blood Pressure 138/92 H 132/73 Pulse Oximetry 98 94 L Pulse Oximetry [Exertion on Room Air] Pulse Oximetry [Resting on Room Air] 01/27/18 08:36 Temperature Pulse Rate 97 H Respiratory Rate 17 Blood Pressure Pulse Oximetry 98 Pulse Oximetry [Exertion on Room Air] Pulse Oximetry [Resting on Room Air] Intake & Output 01/26/18 01/27/18 01/27/18 18:59 06:59 18:59 Intake Total 1710 / 1710 2460 / 2460 Output Total 840 / 840 Balance 870 / 870 2460 / 2460 Weight 50.8 kg Intake: IV 1150 / 1150 1999 NS Inj 1,000 ML @ 100 mls/hr IV 1000 / 1000 1999 .CONT .Q10H MICHEL Rx#:[id number] Levaquin 750 mg Premix Inj 150 150 / 150 ML @ 100 mls/hr IV.SIG Q24H MICHEL Rx#:[id number] Oral 560 / 560 460 / 460 Output: Urine 840 / 840 Other: # Voids 6 Narrative: GENERAL: 57-year-old thin built female awake alert and oriented 3 talkative and cooperative SKIN: Warm and dry. HEAD: Atraumatic. Normocephalic. EYES: Pupils equal and round. No scleral icterus. No injection or drainage. ENT: No nasal bleeding or discharge. Mucous membranes pink and moist. NECK: Trachea midline. No JVD. CARDIOVASCULAR: Regular rate and rhythm. S1-S2 no S3 or S4 RESPIRATORY: LESS Expiratory wheezing, nonproductive cough. GASTROINTESTINAL: Abdomen soft, non-tender, nondistended. Hepatic and splenic margins not palpable. MUSCULOSKELETAL: Extremities without clubbing, cyanosis, or edema. No obvious deformities. NEUROLOGICAL: Awake and alert. No obvious cranial nerve deficits. Motor grossly within normal limits. Five out of 5 muscle strength in the arms and legs. Normal speech. PSYCHIATRIC: Appropriate mood and affect; insight and judgment normal. Results - Labs CBC & Chem 7: 01/27/18 08:31 01/27/18 08:31 Laboratory Results - last 24 hr 01/27/18 01/27/18 08:31 08:31 WBC 9.5 RBC 4.08 Hgb 12.6 Hct 37.7 MCV 92.4 MCH 30.9 MCHC 33.5 RDW 13.2 Plt Count 271 MPV 6.8 L Neut % (Auto) 88.8 H Lymph % (Auto) 8.0 L [place] % (Auto) 3.2 Eos % (Auto) 0.0 Baso % (Auto) 0.0 Neut # (Auto) 8.4 H Lymph # (Auto) 0.8 L [place] # (Auto) 0.3 Eos # (Auto) 0.0 Baso # (Auto) 0.0 WBC Differential . Differential Comment Auto diff final Sodium 142 Potassium 3.8 Chloride 108 H Carbon Dioxide 23.8 Anion Gap 10 BUN 11 Creatinine 0.64 Estimated GFR Greater than 89 Random Glucose 181 H Calcium 8.3 L Phosphorus 2.5 Magnesium 2.1 Total Bilirubin 0.2 AST 19 ALT 27 Alkaline Phosphatase 77 Total Protein 6.0 L D Albumin 3.0 L Microbiology 01/24/18 17:30 Blood - Peripheral Aerobic Blood Culture - Preliminary No growth in 3 days 01/24/18 17:30 Blood - Peripheral Anaerobic Blood Culture - Preliminary No growth in 3 days 01/24/18 17:30 Blood - Peripheral Aerobic Blood Culture - Preliminary No growth in 3 days 01/24/18 17:30 Blood - Peripheral Anaerobic Blood Culture - Preliminary No growth in 3 days 01/24/18 14:45 Sputum - Expectorated Sputum Gram Stain - Final 01/24/18 14:45 Sputum - Expectorated Sputum Sputum Culture - Final Heavy growth normal respiratory kyle - Imaging Chest X-Ray 01/24/18 11:05 CONCLUSION: Hyperinflation. - Procedures NONE Assessment and Plan - Assessment (1) Tobacco abuse Code(s): Z72.0 - Tobacco use Status: Acute (2) Acute exacerbation of chronic obstructive pulmonary disease (COPD) Code(s): J44.1 - Chronic obstructive pulmonary disease with (acute) exacerbation Status: Acute - Plan 57-year-old female who came in complaining of increasing shortness of breath. She has a known history of COPD and states she is trying to quit smoking. Was treated at another hospital and discharged on albuterol and prednisone. Indicates that she completed prednisone however unable to afford albuterol. Patient is homeless. COPD exacerbation Hypoxia on ABG Continue with supplemental oxygen for now, keep sats greater than 90. Hopefully we can wean off oxygen. Will have RN check sats on room air tomorrow Continue with IV steroids Continue with Mucinex Continue with Symbicort Continue with empiric antibiotics, Levaquin WILL GET WALK TEST WAS NOT ABLE TO AFFORD MEDICATIONS AT DC WILL NEED A NEBULIZER Compliance Discussed with patient did need to complete treatment Tobacco abuse Patient indicates she is trying to quit Tobacco abuse counseling History of seizure disorder - continue on Keppra History of manic depression bipolar -Continue Latuda Case management consultation, patient will need assistance with medications Patient remains with shortness of breath and wheezing although A LITTLE IMPROVED WANTS TO GO HOME STATES CAN STAY WITH BF HELENA RN AND PT AND CM Code Status: FULL CODE Discussed Condition With: RN AND PT AND CM Discharge Planning: DC TO HOME TODAY
--- NOTE | 2018-01-27 12:02 | P.DS ---
Date of admission: 01/24/18 15:35 Primary care physician: No Primary Care Physician Attending physician on discharge: Epifanio Rodriguez Anticipated date of discharge: 01/27/18 Brief History from admission: patient is a 57-year-old female who came in complaining of increasing shortness of breath.She has a known history of COPD and is states she is trying to quit smoking. She states that this is been going on for the past week. She states that she was seen at the hospital in [facility] and was discharged with a prescription for albuterol and prednisone. She states she took all the prednisone but she was unable to afford the albuterol. She states that she went to [facility] today who was trying to help her get her inhaler. But she still can breathe so they sent her to the emergency department here at [facility]. She states she has never improved. She states she smoked 1 cigarette today and she states that her chest felt tight and she had pain when she coughs. Denies any fever chills denies any nausea vomiting severity was moderate. Patient states that she has some incontinence when she coughs Patient will be admitted for COPD exacerbation and noncompliance since she is was unable to get the medications to treat her COPD Will be continued on duo nebs and Mucinex and Symbicort and steroids and Levaquin Patient update on day of discharge: patient is a 57-year-old female who came in complaining of increasing shortness of breath.She has a known history of COPD and is states she is trying to quit smoking. She states that this is been going on for the past week. She states that she was seen at the hospital in [facility] and was discharged with a prescription for albuterol and prednisone. She states she took all the prednisone but she was unable to afford the albuterol. She states that she went to [facility] today who was trying to help her get her inhaler. But she still can breathe so they sent her to the emergency department here at [facility]. She states she has never improved. She states she smoked 1 cigarette today and she states that her chest felt tight and she had pain when she coughs. Denies any fever chills denies any nausea vomiting severity was moderate. Patient states that she has some incontinence when she coughs Patient will be admitted for COPD exacerbation and noncompliance since she is was unable to get the medications to treat her COPD Will be continued on duo nebs and Mucinex and Symbicort and steroids and Levaquin 9-6 follow up for COPD exacerbation: 9-7 STILL SOME SOB STILL SOME COUGH IS HOMELESS LIVING ON THE STREETS VERY SLOW IMPROVEMENT COULD NOT AFFORD HER MEDICATIONS AT [place] FROM [facility] THEREFORE IS STILL WORSE 9-8 BREATHING BETTER WANTS TO GO HOME STATES WILL STAY WITH BF HE HAS A PLACE TO LIVE DC TO HOME DW RN AND PT AND CM DS: Diagnosis - Discharge Diagnosis (1) Tobacco abuse Status: Chronic (2) Acute exacerbation of chronic obstructive pulmonary disease (COPD) Status: Acute DS: Medications - Discharge Medications Prescriptions: albuterol sulfate 2 puff INHALATION Q4H PRN #2 inh PRN Reason: SOB budesonide-formoterol [Symbicort] 2 puff INH BID #1 inh famotidine [Pepcid] 20 mg PO BID #60 tab guaifenesin [Mucinex] 600 mg PO BID #60 tab ipratropium-albuterol 1 amp NEB Q4HR NEB #180 amp nicotine 1 patch TRANSDERMAL DAILY #30 ea prednisone 1 pack PO PER PKG DIR #1 each DS: Summary Hospital Course: patient is a 57-year-old female who came in complaining of increasing shortness of breath.She has a known history of COPD and is states she is trying to quit smoking. She states that this is been going on for the past week. She states that she was seen at the hospital in [facility] and was discharged with a prescription for albuterol and prednisone. She states she took all the prednisone but she was unable to afford the albuterol. She states that she went to [facility] today who was trying to help her get her inhaler. But she still can breathe so they sent her to the emergency department here at [facility]. She states she has never improved. She states she smoked 1 cigarette today and she states that her chest felt tight and she had pain when she coughs. Denies any fever chills denies any nausea vomiting severity was moderate. Patient states that she has some incontinence when she coughs Patient will be admitted for COPD exacerbation and noncompliance since she is was unable to get the medications to treat her COPD Will be continued on duo nebs and Mucinex and Symbicort and steroids and Levaquin 9-6 follow up for COPD exacerbation: 9-7 STILL SOME SOB STILL SOME COUGH IS HOMELESS LIVING ON THE STREETS VERY SLOW IMPROVEMENT COULD NOT AFFORD HER MEDICATIONS AT DC FROM [facility] THEREFORE IS STILL WORSE 9-8 BREATHING BETTER WANTS TO GO HOME STATES WILL STAY WITH BF HE HAS A PLACE TO LIVE DC TO HOME DW RN AND PT AND CM - Time Spent with Patient Total time spent providing and/or coordinating discharge services: Greater than 30 minutes - Quality: VTE Deep Vein Thrombosis/Pulmonary Embolism Present on Admission: No Exam Vital signs: Vital Signs 01/26/18 11:50 01/26/18 12:00 01/26/18 15:26 Temperature 97.4 F L Pulse Rate 103 H Respiratory Rate 19 Blood Pressure 127/83 Pulse Oximetry 94 L 98 Pulse Oximetry [Exertion on Room Air] 90 L Pulse Oximetry [Resting on Room Air] 92 L 01/26/18 15:27 01/26/18 16:00 01/26/18 19:44 Temperature 97.5 F L Pulse Rate 93 H 105 H 105 H Respiratory Rate 18 18 20 Blood Pressure 132/91 H Pulse Oximetry 94 L Pulse Oximetry [Exertion on Room Air] Pulse Oximetry [Resting on Room Air] 01/26/18 20:00 01/26/18 23:50 01/27/18 00:00 Temperature 98.1 F 97.9 F Pulse Rate 104 H 115 H 103 H Respiratory Rate 18 23 15 Blood Pressure 168/81 H 136/69 Pulse Oximetry 94 L 91 L 93 L Pulse Oximetry [Exertion on Room Air] Pulse Oximetry [Resting on Room Air] 01/27/18 04:00 01/27/18 04:27 01/27/18 08:00 Temperature 98.1 F 97.9 F Pulse Rate 91 H 94 H 95 H Respiratory Rate 18 17 18 Blood Pressure 138/92 H 132/73 Pulse Oximetry 98 94 L Pulse Oximetry [Exertion on Room Air] Pulse Oximetry [Resting on Room Air] 01/27/18 08:36 Temperature Pulse Rate 97 H Respiratory Rate 17 Blood Pressure Pulse Oximetry 98 Pulse Oximetry [Exertion on Room Air] Pulse Oximetry [Resting on Room Air] Intake & Output 01/26/18 01/27/18 01/27/18 18:59 06:59 18:59 Intake Total 1710 / 1710 2460 / 2460 Output Total 840 / 840 Balance 870 / 870 2460 / 2460 Weight 50.8 kg Intake: IV 1150 / 1150 1999 / 1999 NS Inj 1,000 ML @ 100 mls/hr IV 1000 / 1000 1999 .CONT .Q10H MICHEL Rx#:[id number] Levaquin 750 mg Premix Inj 150 150 / 150 ML @ 100 mls/hr IV.SIG Q24H MICHEL Rx#:[id number] Oral 560 / 560 460 / 460 Output: Urine 840 / 840 Other: # Voids 6 Narrative: GENERAL: 57-year-old thin built female awake alert and oriented 3 talkative and cooperative SKIN: Warm and dry. HEAD: Atraumatic. Normocephalic. EYES: Pupils equal and round. No scleral icterus. No injection or drainage. ENT: No nasal bleeding or discharge. Mucous membranes pink and moist. NECK: Trachea midline. No JVD. CARDIOVASCULAR: Regular rate and rhythm. S1-S2 no S3 or S4 RESPIRATORY: LESS Expiratory wheezing, nonproductive cough. GASTROINTESTINAL: Abdomen soft, non-tender, nondistended. Hepatic and splenic margins not palpable. MUSCULOSKELETAL: Extremities without clubbing, cyanosis, or edema. No obvious deformities. NEUROLOGICAL: Awake and alert. No obvious cranial nerve deficits. Motor grossly within normal limits. Five out of 5 muscle strength in the arms and legs. Normal speech. PSYCHIATRIC: Appropriate mood and affect; insight and judgment normal. Results Procedures completed during hospitalization: NONE Completed studies during hospitalization: Laboratory Results WBC 9.5 th/mm3 (4.0-11.0) 01/27/18 08:31 RBC 4.08 mil/mm3 (4.00-5.30) 01/27/18 08:31 Hgb 12.6 gm/dL (11.6-15.3) 01/27/18 08:31 Hct 37.7 % (35.0-46.0) 01/27/18 08:31 MCV 92.4 fL (80.0-100.0) 01/27/18 08:31 MCH 30.9 pg (27.0-34.0) 01/27/18 08:31 MCHC 33.5 % (32.0-36.0) 01/27/18 08:31 RDW 13.2 % (11.6-17.2) 01/27/18 08:31 Plt Count 271 th/mm3 (150-450) 01/27/18 08:31 MPV 6.8 fL (7.0-11.0) L 01/27/18 08:31 Neut % (Auto) 88.8 % (16.0-70.0) H 01/27/18 08:31 Lymph % (Auto) 8.0 % (9.0-44.0) L 01/27/18 08:31 [place] % (Auto) 3.2 % (0.0-8.0) 01/27/18 08:31 Eos % (Auto) 0.0 % (0.0-4.0) 01/27/18 08:31 Baso % (Auto) 0.0 % (0.0-2.0) 01/27/18 08:31 Neut # (Auto) 8.4 th/mm3 (1.8-7.7) H 01/27/18 08:31 Lymph # (Auto) 0.8 th/mm3 (1.0-4.8) L 01/27/18 08:31 [place] # (Auto) 0.3 th/mm3 (0.0-0.9) 01/27/18 08:31 Eos # (Auto) 0.0 th/mm3 (0.0-0.4) 01/27/18 08:31 Baso # (Auto) 0.0 th/mm3 (0.0-0.2) 01/27/18 08:31 WBC Differential . 01/27/18 08:31 Differential Comment Auto diff final 01/27/18 08:31 Puncture Site Right radial 01/24/18 15:44 Patient Temperature 98.6 01/24/18 15:44 O2 Saturation 87 % (90-100) L* 01/24/18 15:44 ABG pH 7.44 (7.380-7.420) H 01/24/18 15:44 ABG pCO2 38 mmHg (38-42) 01/24/18 15:44 ABG pO2 55 mmHg (61-120) L* 01/24/18 15:44 ABG HCO3 26 mmol/L (22-26) 01/24/18 15:44 ABG O2 Content 16.3 Vol % (12.0-20.0) 01/24/18 15:44 ABG Base Excess 2.0 mmol/L (-2-2) 01/24/18 15:44 ABG Methemoglobin 0.7 % (0-2) 01/24/18 15:44 Charbel Test Present 01/24/18 15:44 Hemoglobin 13.3 G/DL (12.0-16.0) 01/24/18 15:44 Carboxyhemoglobin 1.0 % (0-4) 01/24/18 15:44 Inspired O2 21 % 01/24/18 15:44 Critical Value Yes 01/24/18 15:44 Sodium 142 meq/L (136-145) 01/27/18 08:31 Potassium 3.8 meq/L (3.5-5.1) 01/27/18 08:31 Chloride 108 meq/L (98-107) H 01/27/18 08:31 Carbon Dioxide 23.8 meq/L (21.0-32.0) 01/27/18 08:31 Anion Gap 10 meq/L (5-15) 01/27/18 08:31 BUN 11 mg/dL (7-18) 01/27/18 08:31 Creatinine 0.64 mg/dL (0.50-1.00) 01/27/18 08:31 Estimated GFR Greater than 89 mL/min (>89) 01/27/18 08:31 Random Glucose 181 mg/dL (74-106) H 01/27/18 08:31 Hemoglobin A1c 5.8 % (4.3-6.0) 01/25/18 06:50 Calcium 8.3 mg/dL (8.5-10.1) L 01/27/18 08:31 Phosphorus 2.5 mg/dL (2.5-4.9) 01/27/18 08:31 Magnesium 2.1 mg/dL (1.5-2.5) 01/27/18 08:31 Total Bilirubin 0.2 mg/dL (0.2-1.0) 01/27/18 08:31 AST 19 U/L (15-37) 01/27/18 08:31 ALT 27 U/L (10-53) 01/27/18 08:31 Alkaline Phosphatase 77 U/L (45-117) 01/27/18 08:31 Total Creatine Kinase 85 U/L (26-192) 01/24/18 21:40 Troponin I Less than 0.02 ng/mL (0.02-0.05) L 01/24/18 21:40 Total Protein 6.0 g/dL (6.4-8.2) L D 01/27/18 08:31 Albumin 3.0 g/dL (3.4-5.0) L 01/27/18 08:31 TSH 0.588 uIU/mL (0.358-3.740) 01/25/18 06:50 Free T4 0.96 ng/dL (0.76-1.46) 01/25/18 06:50 Urine Color Yellow (Yellw/Straw) 01/24/18 18:00 Urine Clarity Hazy (Clear) H 01/24/18 18:00 Urine pH 6.0 (5.0-8.5) 01/24/18 18:00 Ur Specific [place] 1.018 (1.002-1.035) 01/24/18 18:00 Urine Protein 100 mg/dL (Neg-Trace) H 01/24/18 18:00 Urine Glucose (UA) Negative mg/dL (Negative) 01/24/18 18:00 Urine Ketones Negative mg/dL (Negative) 01/24/18 18:00 Urine Occult Blood Moderate (Negative) H 01/24/18 18:00 Urine Nitrate Negative (Negative) 01/24/18 18:00 Urine Bilirubin Negative (Negative) 01/24/18 18:00 Urine Urobilinogen Less than 2 mg/dL (Less than 2) 01/24/18 18:00 Ur Leukocyte Esterase Negative (Negative) 01/24/18 18:00 Urine RBC 16 /hpf (0-3) H 01/24/18 18:00 Urine WBC 4 /hpf (0-5) 01/24/18 18:00 Ur Squamous Epith Cells 1 /hpf (0-5) 01/24/18 18:00 Urine Bacteria Rare /hpf (None) H 01/24/18 18:00 Urine Mucus Few /lpf (Occasional) H 01/24/18 18:00 Micro UA Comment Culture not ind 01/24/18 18:00 Ur Microscopic Review Not Reportable 01/24/18 18:00 Urine Culture Comments Culture not ind 01/24/18 18:00 Impressions Chest X-Ray 01/24/18 11:05 CONCLUSION: Hyperinflation. Labs on day of discharge: Labs from last 24 hours 01/27/18 01/27/18 08:31 08:31 WBC 9.5 RBC 4.08 Hgb 12.6 Hct 37.7 MCV 92.4 MCH 30.9 MCHC 33.5 RDW 13.2 Plt Count 271 MPV 6.8 L Neut % (Auto) 88.8 H Lymph % (Auto) 8.0 L [place] % (Auto) 3.2 Eos % (Auto) 0.0 Baso % (Auto) 0.0 Neut # (Auto) 8.4 H Lymph # (Auto) 0.8 L [place] # (Auto) 0.3 Eos # (Auto) 0.0 Baso # (Auto) 0.0 WBC Differential . Differential Comment Auto diff final Sodium 142 Potassium 3.8 Chloride 108 H Carbon Dioxide 23.8 Anion Gap 10 BUN 11 Creatinine 0.64 Estimated GFR Greater than 89 Random Glucose 181 H Calcium 8.3 L Phosphorus 2.5 Magnesium 2.1 Total Bilirubin 0.2 AST 19 ALT 27 Alkaline Phosphatase 77 Total Protein 6.0 L D Albumin 3.0 L Preliminary micro results at discharge 01/24/18 17:30 Aerobic Blood Culture - Preliminary Blood - Peripheral No growth in 3 days Anaerobic Blood Culture - Preliminary No growth in 3 days 01/24/18 17:30 Aerobic Blood Culture - Preliminary Blood - Peripheral No growth in 3 days Anaerobic Blood Culture - Preliminary No growth in 3 days - Impressions ITS Impressions Chest X-Ray 01/24/18 11:05 CONCLUSION: Hyperinflation. Discharge Plan - Discharge Disposition Patient Disposition: 01 Discharge Home - Discharge Condition Condition: Stable - Discharge Order Discharge Orders: Discharge Order (Routine); Ordered 01/27/18 Ordered By: Epifanio Rodriguez - Discharge Details Anticipated Discharge Date: 01/27/18 Discharge Comment: DC TO HOME TODAY - Physicians Team Primary Care Provider: Primary Care Physici,No Attending Provider: Epifanio Rodriguez
== END 2018-01-27 16:47 | disposition home or self-care (01) ==
LOC: NEPD 10:13 → NEDA 15:35 → NEPHCDU 22:16 → N04 01-25 15:36
PROVIDERS: ADMIT Hospitalist; ATTEND Hospitalist